=== PATIENT | male | born 1935 | race Caucasian/White ===

== ENCOUNTER → 2017-08-31 | Outpatient (CLI) | payer MEDICARE ==
[~2017-08-31] MED LIST: 'CLONIDINE0.1 MG PO; ACETAMINOPHEN-H1 TA2 PO; AMLODIPINE BESY1 TAB PO; AMPICILLIN500 MG PO; APRESOLINE25 MG PO; ASPIR LOW81 MG PO; AUGMENTIN 875875 MG PO; BACTRIM DS 8001 TA1 PO; BAYER ASPIRIN C81 MG PO; CLINDAMYCIN150 MG PO; COREG25 MG PO; Carafate1 GM PO; DAILY VITE1 TA2 PO; DIABETA5 MG PO; DIPHENHYDRAMINE25 M2 PO; DOXYCYCLINE MO100 MG PO; DULE1ARO INH; FEOSOL325 MG PO; FEROSUL325 MG PO; GLUCOPHAGE500 M1 PO; GLUCOPHAGE850 M1 PO; GLUCOTROL10 MG PO; HYDR25T PO; LEVAQUIN750 M1 PO; LEVOTHYROXINE0.05 MG PO; LEVOTHYROXINE112 MCG PO; LISINOPRIL5 MG PO; LOTENSIN20 MG PO; METFORMIN1000 MG PO; METFORMIN850 MG PO; METOPROLOL SR50 MG PO; METOPROLOL TART50 M1 PO; MULTIVITAMINS1 EACH PO; NASONEX0.05 MG/AC NAS; NORVASC10 MG PO; PRAVACHOL40 MG PO; PRAVASTATIN SOD40 MG PO; PREDNISONE10 MG PO; PRILOSEC20 M1 PO; PROTONIX40 M1 PO; TOPROL XL100 MG PO; VITAMIN D-32000 UNIT PO; VITAMIN D32000 IU PO; Zofran4 MG PO
== END | disposition home or self-care (01) ==
LOC: CARD 15:00
DX: I08.0 Rheumatic disorders of both mitral and aortic valves (principal); I50.22 Chronic systolic (congestive) heart failure

== ENCOUNTER 2017-12-28 19:05 | Emergency (ER) | payer OTHER ==
[~2017-12-28] VITALS: Wt 95.3 kg
[2017-12-28 20:44] LABS: BASO % 0.4 % (0.0-1.0); EOS # 0.1 10*3/uL (0.0-0.4); HEMATOCRIT 42.4 % (42.0-52.0); HEMOGLOBIN 14.3 g/dl (14.0-18.0); LYMPH # 1.6 10*3/uL (1.3-4.4); LYMPH % 22.5 % (27.0-41.0); MEAN CELL VOLUME 87.6 fl (80.0-94.0); MEAN CORPUSCULAR HGB 29.5 pg (27.0-31.0); MEAN CORPUSCULAR HGB CONC 33.7 g/dl (33.0-37.0); MEAN PLATELET VOLUME 9.6 fl (9.6-12.3); MONO # 0.6 10*3/uL (0.1-1.0); MONO % 8.7 % (3.0-9.0); NEUT # 4.6 10*3/uL (2.3-7.9); PLATELET COUNT AUTOMATED 184 10*3/uL (130-400); RED BLOOD COUNT 4.84 10*6/uL (4.50-5.90); RED CELL DISTRI WIDTH 14.4 % (0-14.5)
[2017-12-28 20:58] LABS: ALBUMIN 3.4 gm/dl (3.1-4.5); CREATININE 1.94 mg/dL (0.70-1.30); POTASSIUM 3.7 mmol/L (3.5-5.1); TOTAL PROTEIN 6.8 gm/dL (6.4-8.2)
[2017-12-28] MEDS ORDERED: AUGMENTIN 875875 MG PO (20:59)
[2018-02-01] MEDS ORDERED: LOPRESSOR25 MG PO (10:20)
[2018-02-01] MEDS ORDERED: FUROSEMIDE40 MG PO (10:21)
[2018-02-01] MEDS ORDERED: SYMB160 INH (10:22)
[2018-02-01] MEDS ORDERED: K-TAB10 MEQ PO (10:22)
[2018-02-01] MEDS ORDERED: LEXAPRO5 M1 PO (10:23)
[2018-02-01] MEDS ORDERED: LORATADINE10 M3 PO (10:24)
== END 2017-12-28 21:40 | disposition home or self-care (01) ==
LOC: ED 19:05
PROVIDERS: Nurse Practitioner
DX: L03.031 Cellulitis of right toe (principal); Z87.891 Personal history of nicotine dependence; Z79.899 Other long term (current) drug therapy; Z79.82 Long term (current) use of aspirin; Z88.8 Allergy status to other drugs, medicaments and biological substances

== ENCOUNTER 2018-04-25 20:41 | Inpatient (IN) | payer OTHER ==
[~2018-04-25] VITALS: Ht 193 cm; Wt 99.4 kg
--- NOTE | ~2018-04-25 | PR ---
[place], [place] PROGRESS NOTE NAME: DARRIN CUELLAR [facility] #: [id number] UNIT #: [id number] ROOM: 506 DOCTOR: LEDA JAEGER MD,JOSE J BIRTHDATE: [birth year] DOS: 04/28/2018 SUBJECTIVE: The patient was showing continued improvement and the respiratory symptom, reduction in symptoms of shortness breath. Cough has been noted intermittently small amounts with more sputum expectoration reported in the last 24 hours as per patient. Denies symptoms of chest pain, fever or chills. OBJECTIVE: VITAL SIGNS: Normal temperature, respiratory rate 16, heart rate 85, blood pressure 149/82, pulse oxygen saturation recorded on room air 93% saturation at rest. HEENT: No acute change. NECK: Supple. CARDIOVASCULAR: S1, S2 is audible. LUNGS: Decreased breath sounds are noted in the lower portion of the lungs with occasional crackles. ABDOMEN: Soft and nontender. Bowel sounds present. EXTREMITIES: Without acute edema. LABORATORY DATA: Chest x-ray that was done this morning was noted with continued improvement in the pleural fluid with basilar area of atelectasis, infiltration was still noted. IMPRESSION: The patient currently noted with resolving acute pneumonia and acute congestive heart failure. Bilateral pleural fluid was also noted. The atelectasis noted somewhat increased in the left lower lobe ____ has been improving. PLAN OF MANAGEMENT: Continue antibiotics, bronchodilators, and oxygen supplementation. Care for diuresis and monitor kidney functions. Supportive care therapy, plan of management, care plan and other treatment. JOSE J TOMPKINS MD CM:PNTRANS [phone] JOSE J JAEGER MD 04/28/18 1550 interface
--- NOTE | ~2018-04-25 | PR ---
[place], [place] PROGRESS NOTE NAME: DARRIN CUELLAR [facility] #: [id number] UNIT #: [id number] ROOM: 506 DOCTOR: JOSE J GUERRERO MD BIRTHDATE: [birth year] DOS: 05/03/2018 PULMONARY ADDENDUM NOTE SUBJECTIVE: The patient had been seen and examined in [id number] encounter, history was confirmed. Physical exam performed. Labs reviewed. Assessment: The patient today normal, personally completed the medical record. The note done by the clinical medical assistant was approved. The patient has been noted comfortable as bronchoscopy done yesterday with reduction in symptoms of cough. There were no symptoms of chest pain or acute shortness of breath noted. He has been eating his breakfast this morning of assessment. PHYSICAL EXAMINATION: VITAL SIGNS: Noted normal temperature, respiration 18, heart rate 77, blood pressure 142/78. The pulse oxygen saturation on 2 liters nasal cannula 94% saturation. HEENT: Examination of head was atraumatic. Eyes nonicterus. NECK: Supple. CARDIOVASCULAR: S1, S2 is audible. LUNGS: The patient was noted without any wheezing or crackles this morning. ABDOMEN: Soft, nontender. Bowel sounds present. EXTREMITIES: Without any acute edema. LABORATORY DATA: Chest x-ray that was done this morning shows a small area of atelectasis noted improvement in the aeration of the patient compared to previous chest x-ray 3 days ago. Small bilateral pleural fluid noted, unchanged. The preliminary culture of the bronchial washing noted normal ibis. IMPRESSION: Resolving acute pneumonia, improving atelectasis for the patient, bilateral pleural fluid, acute kidney injury of the patient and other medical problems. PLAN OF TREATMENT: The patient could be discharged from the pulmonary standpoint whenever desired. Outpatient followup treatment, oral diuretics might be needed for the patient to improve his pleural effusions. [place], [place] PROGRESS NOTE NAME: DARRIN CUELLAR [facility] #: [id number] UNIT #: [id number] ROOM: 506 DOCTOR: JOSE J GUERRERO MD BIRTHDATE: [birth year] JOSE J TOMPKINS MD CM:PNTRANS [id number] JOSE J JAEGER MD 05/03/18 0006 interface
--- NOTE | ~2018-04-25 | EKG ---
[place], [place] ELECTROCARDIOGRAM REPORT NAME: DARRIN CUELLAR UNIT #: [id number] ROOM: 506 DOCTOR: CHRIS DRAFT REPORT BIRTHDATE: [birth year] [facility] Test Date: 2018-04-25 Test Time: 21:56:24 Pat Name: DARRIN CUELLAR Department: ER Room: 506 Gender: M [employer] Worker: Veronica Hunt : 1935 Requested By: TERE CAT Order Number: [id number] Reading MD: Mannie Marin MD Measurements Intervals [place] Rate: 97 P: 48 MO: 216 QRS: -32 QRSD: 99 T: 50 QT: 365 QTc: 464 Interpretive Statements Sinus rhythm Prolonged MO interval Left axis deviation Probable anterior infarct, age indeterminate Lateral leads are also involved Compared to ECG 04/19/2018 15:24:51 First degree AV block now present Left-axis deviation now present Left anterior fascicular block no longer present ST (T wave) deviation no longer present Myocardial infarct finding still present Electronically Signed On 04-26-2018 16:11:15 PST by Mannie Marin MD CM:EKGRPT:ELECTROCARDIOGRAM REPORT 1611 TERE MORALES DRAFT REPORT TERE CAT DO
--- NOTE | ~2018-04-25 | PR ---
[place], [place] PROGRESS NOTE NAME: [facility]: [id number] UNIT #: [id number] ROOM: 506 DOCTOR: JOSE J GUERRERO MD BIRTHDATE: [birth year] DOS: 04/30/2018 PULMONARY PROGRESS NOTE SUBJECTIVE: The patient stated he was noted significant shortness of breath last night as the patient went from the bed to the bathroom. The shortness of breath improved after resting for several minutes and use of oxygen. He denies symptoms of chest pain. He has been noted mild cough, but there was no sputum expectoration. Currently, stating that shortness breaths are noted better from yesterday. OBJECTIVE: VITAL SIGNS: Normal temperature, respiratory rate is 22, heart rate is 88, blood pressure is 150/78, and pulse oxygen saturation on 3 liters nasal cannula is 95% saturation. HEENT: On examination, head was atraumatic. Eyes, nonicterus. NECK: Supple. CARDIOVASCULAR SYSTEM: S1, S2 is audible. LUNGS: Generally decreased breath sounds in the lungs noted bilaterally. ABDOMEN: Soft, nontender. EXTREMITIES: No acute edema. LABORATORY DATA: CBC today, normal WBC count and hemoglobin is 12.3. The BMP of the patient this morning, BUN is 37 and creatinine is 1.87. IMPRESSION: The patient with resolving acute kidney gradually with improving overall respiratory status, shortness of breath reported yesterday, and basilar area of atelectasis and/or infiltration. PLAN OF TREATMENT: Obtain a chest x-ray today. If the findings of atelectasis/infiltration still remains persistent; certainly, the patient might be considered for therapeutic bronchoscopy for clearing up any mucous impaction of major airways resulting in persistent atelectasis. In the meantime, continue other supportive therapy, plan of management, and care plan. Monitor kidney functions. Usual care, other therapy, plan of management, and care plan as previously. [place], [place] PROGRESS NOTE NAME: DARRIN CUELLAR UNIT #: [id number] ROOM: 506 DOCTOR: JOSE J GUERRERO MD BIRTHDATE: [birth year] JOSE J TOMPKINS MD CM:PNTRANS [phone] JOSE J JAEGER MD 05/01/18123 interface
--- NOTE | ~2018-04-25 | PR ---
[place], [place] PROGRESS NOTE NAME: DARRIN CUELLAR [facility] #: [id number] UNIT #: [id number] ROOM: 506 DOCTOR: OLESYA CABRERA,ALAN BIRTHDATE: [birth year] DOS: CARDIOLOGY FOLLOWUP VISIT NOTE The patient ____ 506 bed 1. REASON FOR VISIT: Congestive heart failure and coronary artery disease and recent PA. HISTORY OF PRESENT ILLNESS: The patient is feeling better. Denies any chest pain, no palpitation, no dizziness. Occasional sharp chest pains, but no PND, no orthopnea, no fever and chills. No nausea, vomiting, diarrhea. REVIEW OF SYSTEMS: Review of the 8 systems negative except as mentioned above. RHYTHM STRIPS: The patient in sinus rhythm. PHYSICAL EXAMINATION: VITAL SIGNS: Blood pressure 132/68, pulse 79, respiration is 18, weight 95.9 kilos. GENERAL: Alert, comfortable, in no acute distress. HEAD AND NECK: Neck supple, no distended neck veins, no carotid bruit. CHEST: Symmetrical, nontender. LUNGS: A few scattered rhonchi. Good air entry bilaterally. HEART: Regular rhythm, no S3. Grade 1/6 systolic murmur. ABDOMEN: Benign, nontender. Bowel sounds normal. EXTREMITIES: Showed trace edema. Distal pulses palpable. SKIN: Warm and dry. No cyanosis, no clubbing. RECTAL: Deferred. GENITOURINARY: Deferred. MEDICATIONS AND LABORATORIES: Reviewed. IMPRESSION: 1. Chest pain, atypical. 2. Recent myocardial infarction, cardiac catheterization was done at [place] [facility] and medical therapy recommended. 3. Ischemic cardiomyopathy, ejection fraction of 40-45% by echo. 4. Hypertension. 5. Pneumonia. 6. Chronic kidney disease. RECOMMENDATIONS: 1. Continue cardiac medications include beta mike, nitrates, aspirin and statin. He was on hydralazine and nitrates for his cardiomyopathy. No NIECY or ARBs due to his chronic kidney disease. 2. His labs today showed creatinine 2.05 and hemoglobin 9.7. Chest x-ray showed COPD, cardiomegaly with bronchopneumonia with increased findings at the left base. 3. No further cardiac testing. [place], [place] PROGRESS NOTE NAME: DARRIN CUELLAR [facility] #: [id number] UNIT #: [id number] ROOM: 506 DOCTOR: OLESYA CABRERA,ALAN BIRTHDATE: [birth year] 4. Antibiotic treatment per his primary care physician. 5. Home in the next 1-2 days when he improves from the pneumonia. 6. He will follow up with ____ or Dr. Marin at [facility]. There is no family at bedside at the time of examination. ALAN DACOSTA MD CM:PNTRANS [id number] ALAN DACOSTA MD 04/29/18 1049 interface
--- NOTE | ~2018-04-25 | PROC NOTE ---
[place], [place] PROCEDURE NOTE NAME: DARRIN CUELLAR [facility] #: [id number] UNIT #: [id number] ROOM: 506 DOCTOR: LEDA JAEGER MD,JOSE J BIRTHDATE: [birth year] DOS: 05/02/2018 BRONCHOSCOPY PREOPERATIVE DIAGNOSES: The patient with persistent infiltration of the left lower lobe, rule out pneumonia versus atelectasis or other etiology. POSTOPERATIVE DIAGNOSES: There was no evidence of pleural effusion noted in the left lower lobe of the endobronchial tree, mucus impaction noted, which were cleared of normal saline wash with minimal purulence. There were no endobronchial obstructive lesions. COMPLICATIONS: None. PROCEDURE DESCRIPTION: Informed consent obtained. The patient brought to the OR and placed in supine position. Conscious sedation administered by Anesthesia Department in the supine position. Bronchoscope was introduced into the airway into laryngeal area. Epiglottis and vocal cords were seen. Vocal cord was noted yellowish in color moving symmetrically with movements. Bronchoscope advanced to vocal cord into the tracheal lumen. Tracheal lumen noted with small amount of secretion and suctioned out. Shirley noted sharp. Right upper, right middle, right lower, left upper, lingular lower bronchi were all examined. Small amount of impaction of the mucus noted in the left lower endobronchial tree, cleared with normal saline wash. There were no endobronchial obstructive lesions. All the bronchial washing sent for culture. Procedure was tolerated by the patient. Postoperative findings were discussed with the patient's spouse in the recovery room. No changes at this time in treatment will be necessary. However, new chest x-ray is ordered to be done tomorrow morning to assess the improvement aeration of the lung. Culture will be monitored. Potential discharge tomorrow morning or day after depends on the preliminary culture results of the bronchial washings. JOSE J TOMPKINS MD CM:PROCNOTE:PROCEDURE NOTE [id number] JOSE J JAEGER MD
--- NOTE | ~2018-04-25 | PR ---
[place], [place] PROGRESS NOTE NAME: DARRIN CUELLAR UNIT #: [id number] ROOM: 506 DOCTOR: JOSE J GUERRERO MD BIRTHDATE: [birth year] DOS: 05/02/2018 PULMONARY PROGRESS NOTE SUBJECTIVE: The patient was noted comfortable at this time. At this time, still noted cough which remains nonproductive as previously. Denies acute shortness of breath. There were no symptoms of chest pain reported. Shortness of breath occurs with exertion. There were no symptoms of hemoptysis, fever or chills. Denies symptoms of nausea, vomiting, diarrhea, abdominal pain, hematemesis, melena, or hematochezia. The patient is currently noted n.p.o. past midnight for bronchoscopy. Remaining systems were reviewed. They were noted all negative. OBJECTIVE: VITAL SIGNS: For the patient, which have recorded shows normal temperature, respiratory rate of 18, heart rate 74, blood pressure 132/70-139/73, pulse oxygen saturation recorded on 3 liters nasal cannula 94% saturation this morning. HEENT: No acute change. NECK: Supple. CARDIOVASCULAR: S1, S2 audible. LUNGS: Noted with decreased breath sounds in the lower portion with occasional crackles, but no wheezing. ABDOMEN: Soft, nontender. Bowel sounds present. EXTREMITIES: Without acute edema. MUSCULOSKELETAL: Without acute deformities. CENTRAL NERVOUS SYSTEM: Cranial nerves 2-12 intact. LABORATORY DATA: Culture of the sputum spontaneous from 04/30/2018, no bacterial growth. CBC, WBC count normal, hemoglobin 12.5, platelet count normal. CMP this morning, BUN 41, creatinine 2.20. IMPRESSION: Basilar area of atelectasis without any resolution noted for past several days appropriate medical management of acute pneumonia or improvement of respiratory status, otherwise noted for bronchoscopy. PLAN OF MANAGEMENT: Continuation of current therapy, plan of management, proceed with bronchoscopy as planned. Any changes modification in treatment if necessary after bronchoscopy ordered accordingly. Other therapy, plan of management, care plan and treatment and usual care. Supportive care, other treatment and therapies. [place], [place] PROGRESS NOTE NAME: DARRIN CUELLAR UNIT #: [id number] ROOM: 506 DOCTOR: JOSE J GUERRERO MD BIRTHDATE: [birth year] JOSE J TOMPKINS MD CM:PNTRANS 1237 JOSE J JAEGER MD 05/03/18 0038 interface
--- NOTE | ~2018-04-25 | PR ---
[place], [place] PROGRESS NOTE NAME: DARRIN CUELLAR [facility] #: [id number] UNIT #: [id number] ROOM: 506 DOCTOR: LEDA JAEGER MD,JOSE J BIRTHDATE: [birth year] DOS: 05/01/2018 PULMONARY PROGRESS NOTE SUBJECTIVE: The patient is noted comfortable at this time, resting on the bed this morning. He stated that he has developed significant cough, expectorated some sputum in the last night. Shortness of breath is still noted with exertion with walking from bed to the bathroom. Denies symptoms of fever or chills. Denies symptoms of hemoptysis. Denies symptoms of nausea, vomiting, diarrhea, abdominal pain, hematemesis, melena, hematochezia, general edema or pain of the lower extremities. Remaining systems were reviewed, they were noted all negative. OBJECTIVE: VITAL SIGNS: Reviewed, show temperature normal, respiratory rate recorded as 18-20, heart rate of 83, blood pressure 155/77. Pulse oxygen saturation on 3 liters nasal cannula maintained at 94% saturation. HEENT: Examination shows head was atraumatic. Eyes nonicterus. NECK: Supple. CARDIOVASCULAR: S1, S2 audible. LUNGS: Noted with ____ wheezing or crackles noted in the lungs. ABDOMEN: Soft, nontender. Bowel sounds present. EXTREMITIES: Without any acute edema. VISIBLE SKIN: No lesions or rashes. CENTRAL NERVOUS SYSTEM: Cranial nerves 2 through 12 intact. MUSCULOSKELETAL: Without any acute deformities. RADIOLOGY: Chest x-ray is done yesterday that has been ordered to assess the improvement in area of atelectasis and infiltration in the left lower lobe which remained persistent without any changes. As compared with the last chest x-ray, small bilateral pleural fluid still remains persistent. IMPRESSION: The patient with persistent area of atelectasis and/or pneumonia in the left lower lobe, currently treated for congestive heart failure and pneumonia. Repeat culture of the sputum was also ordered that was done yesterday showing moderate white blood cells, epithelial cells, many Gram-positive cocci in pairs, chains and clusters with preliminary normal ibis. Cultures will be monitored. PLAN OF THERAPY: The patient will benefit from fiberoptic bronchoscopy that will be done tomorrow morning. Risks and benefits of the procedure have been explained. The patient is agreeable. I would not suggest making any changes in antibiotic at this time since the patient is not showing any obvious signs of sepsis requiring change in antibiotics. Monitor cultures of sputum as well. Other supportive therapy, plan of management, care plan. Cardiology workup remains in progress. The patient was also planned for stress testing to be done tomorrow. [place], [place] PROGRESS NOTE NAME: DARRIN CUELLAR UNIT #: [id number] ROOM: 506 DOCTOR: JOSE J GUERRERO MD BIRTHDATE: [birth year] JOSE J TOMPKINS MD CM:PNTRANS [phone] JOSE J JAEGER MD 05/01/18 1532 interface
--- NOTE | ~2018-04-25 | EKG ---
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1935 Requested By: STEFANY MATTHEWS Order Number: [id number] Reading MD: Mannie Marin MD Measurements Intervals [place] Rate: 78 P: 51 OR: 214 QRS: -42 QRSD: 105 T: 74 QT: 470 QTc: 536 Interpretive Statements Sinus rhythm Supraventricular bigeminy Borderline prolonged OR interval Left anterior fascicular block Anterolateral infarct, age indeterminate Prolonged QT interval Compared to ECG 04/19/2018 15:24:51 Atrial premature complex(es) now present Prolonged QT interval now present ST (T wave) deviation no longer present Myocardial infarct finding still present Electronically Signed On 04-26-2018 16:16:14 PST by Mannie Marin MD CM:EKGRPT:ELECTROCARDIOGRAM REPORT [id number] STEFANY MORALES DRAFT REPORT STEFANY MATTHEWS DO
--- NOTE | ~2018-04-25 | PR ---
[place], [place] PROGRESS NOTE NAME: DARRIN CUELLAR [facility] #: [id number] UNIT #: [id number] ROOM: 506 DOCTOR: ALAN DACOSTA MD BIRTHDATE: [birth year] DOS: 05/01/2018 REASON FOR VISIT: CHF and CAD. HISTORY OF PRESENT ILLNESS: The patient is still somewhat short of breath, but denies any chest pain or palpitation. No dizziness, no edema, no orthopnea. He is anticipating to go for a bronchoscopy tomorrow. A chest x-ray showed mild pleural effusions. No PND, no orthopnea, no fever and chills, no cough, no hemoptysis. REVIEW OF SYSTEMS: Review of the 10 systems negative except as mentioned above. RHYTHM STRIPS: The patient was in sinus rhythm. PHYSICAL EXAMINATION: VITAL SIGNS: Blood pressure 135/75, respiratory rate 18, pulse 76. GENERAL: Alert, comfortable, in no acute distress. HEAD AND NECK: Pupils are unequal and no jaundice. Tongue was moist and pharynx clear. Neck supple. The patient has elevated neck veins. CHEST: Symmetric, nontender. LUNGS: A few scattered rhonchi, diminished at bases. HEART: Regular rhythm, grade 2/6 systolic murmur. ABDOMEN: Nontender. Bowel sounds normal. EXTREMITIES: Showed 1+ edema. Distal pulses palpable. SKIN: Warm and dry. No cyanosis, no clubbing. RECTAL: Deferred. GENITOURINARY: Deferred. NEUROLOGIC: Alert, oriented. No focal neurologic deficit. MEDICATIONS AND LABS: Reviewed. Creatinine is 2.0, hemoglobin 12.6. The chest x-ray showed cardiomegaly, emphysema and also bilateral pleural effusions which are slightly increased from previous x-ray. There is also left lower lobe consolidation. IMPRESSION: 1. Acute on chronic systolic heart failure, ejection fraction is 40-45% by echo on 04/26/2018 2. Intermittent chest pains, currently stable. 3. Recent ST elevation myocardial infarction and cardiac cath showed 100% occluded diagonal 1 and 90% posterior descending artery, medical therapy recommended. 4. Moderate pulmonary hypertension with right ventricular systolic pressures of 52 mmHg. 5. Pneumonia and possible sepsis. 6. Hypertension. 7. Chronic kidney disease. RECOMMENDATIONS: 1. I will start Lasix and give him another 20 mg IV today and start him on [place], [place] PROGRESS NOTE [facility]: [id number] #: [id number] ROOM: 506 DOCTOR: OLESYA CABRERA,ALAN BIRTHDATE: [birth year] mg p.o. once daily from tomorrow and monitor his blood pressure and renal function. 2. Possible bronchoscopy tomorrow. 3. Continue rest of the cardiac medications including metoprolol, hydralazine, isosorbide, Lipitor, and aspirin. 4. No family at bedside at the time of my examination. ALAN DACOSTA MD CM:GREGORIO [phone] ALAN DACOSTA MD 05/01/182133 interface
--- NOTE | ~2018-04-25 | CON ---
[place], [place] REPORT OF CONSULTATION NAME: DARRIN CUELLAR [facility] #: [id number] UNIT #: [id number] ROOM: 506 DOCTOR: SAM CASTRO DO BIRTHDATE: [birth year] DOS: 04/26/2018 PULMONOLOGY CONSULTATION REQUEST The service we are being consulted for is the hospitalist service. REASON FOR CONSULTATION: Multifocal pneumonia and spiculated mass on CT. HISTORY OF PRESENT ILLNESS: The patient is an 82-year-old male who presented to the hospital with chest pain that began earlier in the day after eating a meal. The patient reports that he was recently seen in the Emergency Department about a week ago on 04/19/2018 and was found to have a STEMI for which he was sent to [facility] ____ in [place] for cardiac catheterization. At that time, he was found to have 30% in 1 vessel and 100% blockage in another vessel. The patient did not receive any stents at that time, but was placed on aspirin daily. The patient was concerned because he was experiencing chest pain that was similar to the chest pain that he had experienced a week ago. The patient does admit to shortness of breath and cough that is productive. He admits to chills, but denies any fever. In the ER, the patient was evaluated and found to have multifocal pneumonia and then was admitted to the ICU for further care. PAST MEDICAL PROBLEMS: Abdominal aortic aneurysm, adenocarcinoma of duodenum status-post surgical excision, anxiety, coronary artery disease, chronic kidney disease, COPD, diastolic congestive heart failure, diabetes type 2, emphysema, hypertension, GERD, hiatal hernia, hyperlipidemia, vitamin D deficiency. PAST SURGICAL PROBLEMS: History of cataract removal, history of EGD, history of AAA repair, history of cardiac catheterization, and history of duodenal cancer removal. SOCIAL HISTORY: The patient denies alcohol or illicit drug use, but does report a past history of tobacco abuse. The patient reports that he smoked up to 3 packs per day for the past 50 years, but quit around 16 years ago. FAMILY HISTORY: Father from coronary artery disease. Mother from natural causes at age 98. ALLERGIES: LORAZEPAM, ZOLPIDEM, AND OLIVER PEPPERS. CURRENT MEDICATIONS: Aspirin 81 mg daily, atorvastatin 40 mg daily, Symbicort 160/4.5 mcg 2 puffs daily, vitamin D 2000 units daily, glipizide 10 mg daily, hydralazine 25 mg q. 12 hours, Vistaril 25 mg p.r.n. anxiety, isosorbide 30 mg twice a day, levothyroxine 200 mcg daily, loratadine 10 mg daily, metoprolol 50 mg daily, and multivitamin once daily. REVIEW OF SYSTEMS: GENERAL: The patient reports chills. Denies any fevers, weight loss, or weight gain. HEENT: Denies any vision changes, lesions, or difficulty swallowing. CARDIOVASCULAR: Reports chest pain. Denies palpitations or diaphoresis. [place], [place] REPORT OF CONSULTATION NAME: DARRIN CUELLAR UNIT #: [id number] ROOM: 506 DOCTOR: SAM CASTRO DO BIRTHDATE: [birth year] RESPIRATORY: Reports shortness of breath, cough productive of sputum, dyspnea on exertion, but denies any hemoptysis or wheezing. GASTROINTESTINAL: Denies abdominal pain, nausea, vomiting, diarrhea, or constipation. GENITOURINARY: Denies any dysuria, hematuria, or changes in frequency or urgency. NEUROLOGICAL: Denies any dizziness, lightheadedness, or confusion. PSYCHIATRIC: Denies depression, anxiety, or substance abuse. ENDOCRINE: Denies any heat or cold intolerance. EXTREMITIES: Denies any new rashes, lesions, or ulcers. PHYSICAL EXAMINATION: VITAL SIGNS: Temperature of 97.5, pulse of 82, respiratory rate 18, blood pressure 154/85, and pulse ox 93% on 3 L nasal cannula. GENERAL: The patient is alert and oriented x 3. No signs of acute distress. HEAD: Normocephalic, atraumatic. EYES: PERRLA. No lesions, no icterus. NECK: Without lesions or masses. Supple. HEART: Regular rate and rhythm. No murmurs, rubs, or gallops. LUNGS: No respiratory distress, but rales and rhonchi are present bilaterally. No wheezing present. ABDOMEN: Soft, nontender. Bowel sounds present. EXTREMITIES: Trace edema. No clubbing, cyanosis, or erythema. NEUROLOGIC: Grossly intact without focal neurological deficits. PSYCHIATRIC: Normal mood, normal affect. SKIN: Warm and dry, no rashes, ulcerations, or lesions. LABORATORY DATA: CBC showed white blood cell count of 8.3, hemoglobin of 13.1, hematocrit of 39.3, and platelet count of 226. Coagulation profile within normal limits. CMP showed chronic kidney disease with creatinine of 1.83 and BUN of 32. The rest of electrolytes within normal limits. Troponin elevated at 1.150. Chest x-ray in the ER showed possible developing bibasilar infiltrates. Chest CT showed emphysema with diffuse bronchial wall thickening and mucus plugging. Bibasilar airspace opacity is suspicious for multifocal pneumonia; enlarged mediastinal lymph nodes which may possibly be due to the infection. The CT also showed a new area of solid airspace nodularity with spiculated margins measuring 2 x 2 cm in the superior right lower lobe, which is associated with bronchiectasis. The CT also showed a mid-descending thoracic aorta, mildly dilated at 4.2 cm. ASSESSMENT: 1. Sepsis. 2. Hospital acquired pneumonia. 3. Chest pain. 4. Elevated troponin. 5. Acute respiratory failure with hypoxia. [place], [place] REPORT OF CONSULTATION NAME: POLODARRIN R UNIT #: [id number] ROOM: [facility] DOCTOR: SAM CASTRO DO BIRTHDATE: [birth year] 6. Right lower lobe pulmonary nodule. 7. Mediastinal lymphadenopathy. 8. Chronic kidney disease. 9. Chronic obstructive pulmonary disease. 10. Diastolic congestive heart failure. 11. Coronary artery disease. TREATMENT PLAN: The patient was initially admitted to the ICU and has had troponin cycled and Cardiology is following for the elevated troponin levels. The patient is currently on vancomycin, Zosyn, and Levaquin for coverage of HCAP, these antibiotics can be continued for now and will be deescalated based on pending sputum cultures and blood cultures. The patient was also found to have some mild pleural effusions and further IV hydration can be avoided at this time. No current need for any IV diuretics. Continue bronchodilators and Mucinex. Based on CT findings, the patient will have to be monitored with a followup CT to evaluate the nodularity which could be due to current infection, but must be ruled out at a later date with repeat followup CT. Sam Castro DO JOSE J TOMPKINS MD CM:CONSTR:REPORT OF CONSULTATION 1051 04/27/18 1350 interface
--- NOTE | ~2018-04-25 | PR ---
[place], [place] PROGRESS NOTE NAME: DARRIN CUELLAR [facility] #: [id number] UNIT #: [id number] ROOM: 506 DOCTOR: UMESH VILLEDA BIRTHDATE: [birth year] DOS: 04/27/2018 SUBJECTIVE: The patient appears to be comfortable at rest with decreased coughing. The patient notes that he has improved breathing, decreased fever and decreased shortness of breath. The patient denies headache, nausea, vomiting and overall has improved since yesterday. OBJECTIVE: VITAL SIGNS: Normal temperature, respiratory rate 18, pulse 81, blood pressure 138/72, pulse oxygen saturation on 3 liters nasal cannula 96% saturation. HEENT: Head was atraumatic. Eyes: Nonicterus. NECK: Supple. CARDIOVASCULAR: S1, S2 audible. LUNGS: The patient was noted with decreased breath and lungs bilaterally, no appreciable crackles except a little on the bases. No wheezing. ABDOMEN: Soft, nontender. Bowel sounds present. EXTREMITIES: The patient without any edema. SKIN: Variable skin lesions or rashes. MUSCULOSKELETAL: No acute deformities. CENTRAL NERVOUS SYSTEM: Cranial nerves 2-12 intact. LABORATORY DATA: CBC on 04/27/2018, white blood cell count 10.4, hemoglobin 12.6, platelet count 266. CMP done on 04/27/2018, BUN 45; creatinine 2.19, elevated from yesterday creatinine was 1.83; glucose 197; CO2 of 21. Troponin 0.848 decreased from yesterday's 0.889, overall stable. ASSESSMENT: 1. The patient presents to the hospital with acute hypoxic respiratory failure with possible superimposed acute pneumonia, congestive heart failure, considered in the differential diagnosis of bilateral pleural fluid. 2. Rule out lung malignancy versus localized infection of the right upper lobe superior subsegment. 3. Past history of nicotine abuse as well. 4. Abnormal troponin. Cardiology following. 5. Recent ST segment elevation myocardial infarction, cardiac catheterization from the 13th of this month, but did not require any acute coronary intervention after cardiac catheterization. PLAN OF MANAGEMENT: The patient to continue current antibiotic treatment and bronchodilators. Current antibiotic management can be deescalated once cultures return and if negative. UMESH VILLEDA DO [place], [place] PROGRESS NOTE NAME: [facility]AR [id number] UNIT #: [id number] ROOM: 506 DOCTOR: UMESH VILLEDA BIRTHDATE: [birth year] JOSE J TOMPKINS MD CM:GREGORIO [id number] UMESH VILLEDA 04/28/18 0020 interface
--- NOTE | ~2018-04-25 | EKG ---
[place], [place] ELECTROCARDIOGRAM REPORT NAME: DARRIN CUELLAR UNIT #: [id number] ROOM: 506 DOCTOR: CHRIS DRAFT REPORT BIRTHDATE: [birth year] [facility] Test Date: 2018-04-26 Test Time: 00:54:23 Pat Name: DARRIN CUELLAR Department: Room: 506 Gender: M Data Support Specialist: DRU : 1935 Requested By: STEFANY MATTHEWS Order Number: [id number] Reading MD: Mannie Marin MD Measurements Intervals [place] Rate: 87 P: 46 MA: 220 QRS: -37 QRSD: 101 T: 75 QT: 396 QTc: 477 Interpretive Statements Sinus rhythm Borderline prolonged MA interval Left axis deviation Anteroseptal infarct, age indeterminate Compared to ECG 04/19/2018 15:24:51 Left-axis deviation now present Left anterior fascicular block no longer present ST (T wave) deviation no longer present Myocardial infarct finding still present Electronically Signed On 04-26-2018 16:12:33 PST by Mannie Marin MD CM:EKGRPT:ELECTROCARDIOGRAM REPORT 0054 1612 STEFANY MORALES DRAFT REPORT STEFANY MATTHEWS DO
--- NOTE | ~2018-04-25 | EKG ---
[place], [place] ELECTROCARDIOGRAM REPORT NAME: DARRIN CUELLAR UNIT #: [id number] ROOM: 506 DOCTOR: CHRIS DRAFT REPORT BIRTHDATE: [birth year] [facility] Test Date: 2018-05-03 Test Time: 00:54:49 Pat Name: DARRIN CUELLAR Department: Room: 506 1 Gender: M Wrapper Stitcher: DOLLY : 1935 Requested By: JOHNNY MUNGUIA Order Number: [id number] Reading MD: Conrad Hunt MD Measurements Intervals [place] Rate: 81 P: 17 NC: 210 QRS: -36 QRSD: 103 T: 147 QT: 453 QTc: 526 Interpretive Statements Sinus rhythm Left axis deviation Anteroseptal infarct, age indeterminate Lateral leads are also involved Prolonged QT interval Compared to ECG 04/26/2018 03:45:24 Left-axis deviation now present Atrial premature complex(es) no longer present Left anterior fascicular block no longer present Myocardial infarct finding still present Electronically Signed On 05-03-2018 11:11:03 PST by Conrad Hunt MD CM:EKGRPT:ELECTROCARDIOGRAM REPORT 0054 1111 JOHNNY MORALES DRAFT REPORT JOHNNY MUNGUIA DO
--- NOTE | ~2018-04-25 | CON ---
[place], [place] REPORT OF CONSULTATION NAME: DARRIN CUELLAR [facility] #: [id number] UNIT #: [id number] ROOM: 506 DOCTOR: LEDA JAEGER MDJOSE J BIRTHDATE: [birth year] DOS: 04/26/2018 PULMONARY CONSULTATION, EVALUATION AND MANAGEMENT CONSULTATION REQUESTED BY: Hospitalist service. REASON FOR CONSULTATION: Assessment of the pneumonia, pleural fluid and other respiratory problems. HISTORY OF PRESENT ILLNESS: The patient was independently seen and examined in [id number] encounter, history was confirmed. Physical examination performed. Labs were reviewed. The note done by the medical equipment technician was approved as well. All the labs were reviewed. The data from the PACS system was reviewed as well including his past history. The patient presented to the Emergency Room yesterday on 04/25/2018. The patient has been noted with symptoms of getting some indigestion in the abdomen. He was also noted some symptoms of shortness of breath as well. The patient was brought to the hospital in the Emergency Room. He has been denying any symptoms of chest pain. He does have some cough without any sputum expectoration. Denies symptoms of hemoptysis. Denies any symptoms of wheezing. The patient has been recently admitted to the hospital. Incidentally, he has been hospitalized on 04/26/[address] segment elevation myocardial infarction. The patient was transferred to [facility] by the helicopter with cardiac catheterization was noted with multifocal coronary artery disease, but the patient did not require any acute coronary intervention as stated by the patient. REVIEW OF SYSTEMS: For the patient which has already completed by the medical equipment technician and reviewed for the patient is the same. PAST MEDICAL HISTORY: 1. Known with history of coronary artery disease. 2. Chronic kidney disease stage 3. 3. COPD. 4. Descending abdominal aortic aneurysm. 5. Congestive heart failure, diastolic dysfunction. 6. Essential hypertension. 7. Gastroesophageal reflux. 8. History of adenocarcinoma of the duodenum for patient status post surgery reported in remission. 9. Vitamin D deficiency. 10. Hyperlipidemia. PAST SURGICAL HISTORY: 1. Bilateral cataract extraction and lens implantation. 2. EGD. 3. Abdominal aortic aneurysm repair. 4. Cardiac catheterization. 5. Partial resection of duodenum for duodenal cancer. SOCIAL HISTORY: The patient is , has 2 children, lives at home. Smoking [place], [place] REPORT OF CONSULTATION NAME: DARRIN CUELLAR UNIT #: [id number] ROOM: 506 DOCTOR: JOSE J GUERRERO MD BIRTHDATE: [birth year] started the patient at younger age 2 packs of cigarettes per day until 2002. Denies history of alcohol use or illicit drug use. FAMILY HISTORY: Noncontributory. CURRENT MEDICATIONS: administered during this hospitalization, hydralazine, metoprolol succinate, Lovenox, DVT prophylaxis, Lipitor, Imdur, loratadine, multivitamin, aspirin, vitamin D, sliding insulin coverage, Pulmicort Respules, albuterol sulfate, levothyroxine, Protonix, hydroxyzine, antibiotics, Levaquin, vancomycin and Zosyn. DRUG ALLERGY HISTORY: 1. ATIVAN. 2. AMBIEN. PHYSICAL EXAMINATION: GENERAL: An 82-year-old white male, currently noted comfortable without any acute distress this morning of assessment. Height of 6 feet 4 inches, weight of 211 pounds, BMI 25.7 reported. VITAL SIGNS: High temperature 101.3 degree Fahrenheit to normal temperature this morning, respiratory 18-26, heart rate of 84-90, blood pressure 132/80-154/85. Pulse oxygen saturation patient noted on 3 liters nasal canula 92% saturation and 87% on room air was recorded on admission. HEENT: Head was atraumatic. Eyes nonicterus. NECK: Supple. CARDIOVASCULAR: S1, S2 audible. LUNGS: The patient was noted with decreased breaths in the lungs bilaterally. There were no crackles or wheezing. ABDOMEN: Soft, nontender. Bowel sounds present. EXTREMITIES: The patient without any edema. SKIN: Visible skin lesions or rashes. MUSCULOSKELETAL: No acute deformities. CENTRAL NERVOUS SYSTEM: Cranial nerves 2-12 intact. LABORATORY DATA: CBC on 04/25/2018, normal CBC. CMP that was done on 04/25/2018, BUN 33, creatinine 1.91, glucose 153. Sodium 135. Troponin 1.32. Lactic acid for the patient 1.1. ESR was 35. PT, PTT patient this morning still noted normal. CMP of the patient this morning, BUN 32, creatinine 1.83, glucose 205, CO2 of 19. Troponin that. The troponin third set for 1.50. CBC this morning, normal WBC count, hemoglobin 13.1. The PACS data reviewed for the patient for his images of the CAT scan of the chest x-ray. The chest x-ray that was done on 04/19/2018, was reviewed and it shows no acute pulmonary infiltration. Chest x-ray done shows interval development of bilateral pleural fluid and lower lobe infiltration. CT scan of the chest without contrast that was completed yesterday shows small bilateral pleural fluid as well as area of atelectasis, infiltration noted in the left lower lobe small in the right lower lobe as well as pulmonary nodule ____ cm in the right lower lobe superior segment. There was no associated lymphadenopathy noted with the finding mediastinal lymphadenopathy because lack of IV contrast. [place], [place] REPORT OF CONSULTATION NAME: DARRIN CUELLAR UNIT #: [id number] ROOM: [facility] DOCTOR: LEDA JAEGER MD,[facility] BIRTHDATE: [birth year] IMPRESSION: 1. The patient currently presented to the hospital with acute hypoxic respiratory failure, possibility of acute congestive heart failure would be considered in the differential diagnosis of bilateral pleural fluid. 2. Possibly superimposed acute pneumonia to be considered as well with current presentation. 3. Rule out lung malignancy versus localized infection of the right upper lobe superior subsegment. 4. Past history of nicotine abuse as well. 5. Abnormal troponin. 6. Recent ST segment elevation myocardial infarction. Cardiac catheterization from the 13th of this month, but did not require any acute coronary intervention after cardiac catheterization. PLAN OF MANAGEMENT: The patient would be continued with current antibiotic at risk of resistant infection would be likely because of recent hospitalization, the patient's stay more than 48 hours in [facility]. Also assess if there is any previous CT scans done during his recent hospitalization to review and compare the current findings. Bronchodilators for the patient to be continued. Reduction of antibiotic spectrum based on the progression of the illness. Assess the patient's current pneumonia with the urine for Legionella antigen and strep antigen and other testing. Diuretics carefully to be done. The patient noted with acute coronary injury related to the current acute ongoing pulmonary problem. The patient seemed to be better for the patient, white excessive fluid use. The patient to prevent fluid overload. Ultrasound of the chest was performed at the bedside, only small pleural fluid noted with some interstitial edema. Other plan of management changes to be made based on progression of the illness. Thank you for allowing me to participate in the care of this patient. JOSE J TOMPKINS MD CM:CONSTR:REPORT OF CONSULTATION 1348 04/27/18 0221 interface
--- NOTE | ~2018-04-25 | PR ---
[place], [place] PROGRESS NOTE [id number] UNIT #: [id number] ROOM: 506 DOCTOR: LEDA JAEGER MD,JSOE J BIRTHDATE: [birth year] DOS: 04/29/2018 SUBJECTIVE: He has been complaining of shortness of breath last night when he was trying to make up his bed. Shortness of breath has been noted better with rest. Denies any symptoms of fever or chills. No symptoms of nausea or vomiting. Denies symptoms of abdominal pain. The patient does not have any coughing or sputum expectoration. OBJECTIVE: VITAL SIGNS: Normal temperature, respiratory rate 18, heart rate 81, blood pressure 150/73. The pulse oxygen saturation on 2 liters 93% saturation. HEENT: Examination shows head was atraumatic. Eyes nonicterus. NECK: Supple. CARDIOVASCULAR: S1, S2 is audible. LUNGS: The patient was noted with crackles in the lung bases bilaterally, more on the left than the right side. ABDOMEN: Soft, nontender. EXTREMITIES: No acute edema. IMPRESSION: 1. Acute congestive heart failure with area of basilar atelectasis noted in the left side with a chest x-ray yesterday. 2. Acute pneumonia, currently treated with the Levaquin. The Levaquin adjusted to kidney functions. PLAN OF THERAPY: Continue antibiotics, bronchodilators, other treatment, and plan of management previously in progress. Usual care. Supportive care and therapies. JOSE J TOMPKINS MD CM:PNTRANS [id number] JOSE J JAEGER MD 04/29/18 1221 interface
--- NOTE | ~2018-04-25 | PR ---
[place], [place] PROGRESS NOTE NAME: DARRIN CUELLAR [facility] #: [id number] UNIT #: [id number] ROOM: 506 DOCTOR: LEDA JAEGER MD,JOSE J BIRTHDATE: [birth year] DOS: 04/27/2018 SUBJECTIVE: The patient independently seen and examined in [id number] encounter, history was confirmed. Physical examination performed. Labs were reviewed. Assessment and management of the patient for today's visit were personally completed. The patient has been transferred to the medical floor. In Intensive Care Unit the patient has not been noted with any episodes of hypotension. The patient noted significant tachycardia to transfer. Shortness of breath has been noted improved. The patient remains afebrile. Denies symptoms of fever, chills, chest pain or hemoptysis. The patient denies symptoms of abdominal pain, nausea, vomiting or diarrhea. Denies any pain of the lower extremities. Remaining systems were reviewed. They were noted all negative. OBJECTIVE: HEENT: Examination shows head was atraumatic. Eyes nonicterus. NECK: Supple. CARDIOVASCULAR: S1, S2 audible. LUNGS: Noted decreased breath sounds in the lower portion of the lungs. ABDOMEN: Soft, nontender, bowel sounds present. EXTREMITIES: Without any acute edema. MUSCULOSKELETAL: Without acute deformities. CENTRAL NERVOUS SYSTEM: Cranial nerves 2-12 intact. LABORATORY DATA: CBC today: WBC count normal, hemoglobin 12.6, platelet normal. Troponin 0.848. CMP this morning, BUN 45, creatinine 2.19. Echocardiogram completed yesterday on 04/26/2018 was reviewed and is reported as finding of left ventricle, ejection fraction mildly decreased at 40%-45%. IMPRESSION: 1. The patient who has been currently noted with acute congestive heart failure, bilateral pleural fluid with possibility of acute pneumonia. The patient remains afebrile. 2. Mild increase in creatinine noted, most likely related to diuretic. 3. 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 PLAN OF TREATMENT: Discontinuation of the IV Zosyn and vancomycin, discontinued Levaquin. The patient adjusted to kidney functions. Monitor temperature curve. The patient has been noted afebrile again with signs of active infection, worsening certainly antibiotic will be readdressed accordingly. Chest x-ray was ordered to be done in the morning to reassess the pleural fluid and pulmonary infiltration. Continue to maximize the Cardiology services. Usual care. Supportive care, plan of management and treatments. [place], [place] PROGRESS NOTE NAME: DARRIN CUELLAR UNIT #: [id number] ROOM: 506 DOCTOR: JOSE J GUERRERO MD BIRTHDATE: [birth year] JOSE J TOMPKINS MD CM:PNTRANS 1023 17 JOSE J JAEGER MD 04/27/188 interface
--- NOTE | ~2018-04-25 | PR ---
[place], [place] PROGRESS NOTE NAME: DARRIN CUELLAR UNIT #: [id number] ROOM: 506 DOCTOR: UMESH VILLEDA BIRTHDATE: [birth year] DOS: 05/03/2018 SUBJECTIVE: The patient was noted comfortable at this time. The patient notes decreased coughing and is feeling better. The patient denies chest pain, shortness of breath as well as fevers or chills. The patient feels ready to be discharged. OBJECTIVE: VITAL SIGNS: The patient has normal temperature, respirations 18, heart rate 77, blood pressure 142/78, pulse oxygen saturation on 2 liters nasal cannula 94% saturation this morning. HEENT: No acute change. NECK: Supple. CARDIOVASCULAR: S1, S2 audible. LUNGS: Decreased breath sounds bilaterally. Lungs are clear. ABDOMEN: Soft, nontender. EXTREMITIES: Without acute edema. MUSCULOSKELETAL: Without acute deformation. CENTRAL NERVOUS SYSTEM: Grossly intact. LABORATORY DATA: CBC: White blood cell count normal, hemoglobin 11.9, platelet count normal. CMP this morning; BUN 40, creatinine 2.06. IMPRESSION: Basilar area of atelectasis as well as acute pneumonia. The patient has improved since the bronchoscopy. PLAN OF MANAGEMENT: The patient can be discharged from a pulmonary standpoint at this time. Chest x-ray was better today. The patient can be discharged on antibiotics and steroid taper at this time. UMESH VILLEDA DO [place], [place] PROGRESS NOTE NAME: DARRIN CUELLAR UNIT #: [id number] ROOM: 506 DOCTOR: UMESH VILLEDA BIRTHDATE: [birth year] JOSE J TOMPKINS MD CM:PNTRANS 1126 [id number] UMESH VILLEDA 05/04/18 0250 interface
[~2018-04-25 20:41] MED LIST changes: +FUROSEMIDE40 MG PO; +K-TAB10 MEQ PO; +LEXAPRO5 M1 PO; +LOPRESSOR25 MG PO; +LORATADINE10 M3 PO; +SYMB160 INH
[2018-04-25 20:48] VITALS: BP 166/85
[2018-04-25 22:14] LABS: BASO # 0.1 10*3/uL (0.0-0.1); BASO % 0.5 % (0.0-1.0); EOS % 0.1 % (1.0-4.0); HEMATOCRIT 42.4 % (42.0-52.0); LYMPH # 0.6 10*3/uL (1.3-4.4); LYMPH % 6.3 % (27.0-41.0); MEAN PLATELET VOLUME 9.8 fl (9.6-12.3); MONO # 0.5 10*3/uL (0.1-1.0); MONO % 4.7 % (3.0-9.0); NEUT % 87.9 % (47.0-73.0); PLATELET COUNT AUTOMATED 244 10*3/uL (130-400); RED BLOOD COUNT 4.82 10*6/uL (4.50-5.90); RED CELL DISTRI WIDTH 14.1 % (0-14.5); WHITE BLOOD COUNT 10.2 10*3/uL (4.8-10.8)
[2018-04-25 22:30] VITALS: BP 153/77
[2018-04-25 22:31] LABS: ALBUMIN 2.6 gm/dl (3.1-4.5); CREATININE 1.91 mg/dL (0.70-1.30); POTASSIUM 4.1 mmol/L (3.5-5.1); TOTAL PROTEIN 6.7 gm/dL (6.4-8.2)
[2018-04-25 22:56] LABS: TROPONIN I 1.32 ng/ml (<0.045)
[2018-04-25 23:20] VITALS: BP 137/72
[2018-04-26 00:20] VITALS: BP 132/82
[2018-04-26] MEDS ORDERED: APRESOLINE25 MG PO (01:08)
[2018-04-26] MEDS ORDERED: LEVOTHYROXINE200 MC2 PO (01:08)
[2018-04-26] MEDS ORDERED: METOPROLOL SUCC50 M1 PO (01:09)
[2018-04-26] MEDS ORDERED: ISOSORBIDE30 MG PO (01:10)
[2018-04-26] MEDS ORDERED: VISTARIL25 MG PO (01:12)
[2018-04-26] MEDS ORDERED: LIPITOR40 MG PO (01:12)
[2018-04-26 02:06] LABS: TROPONIN I 1.11 ng/ml (<0.045)
[2018-04-26 04:00] VITALS: BP 144/78
[2018-04-26 04:18] LABS: HEMATOCRIT 39.3 % (42.0-52.0); HEMOGLOBIN 13.1 g/dl (14.0-18.0); MEAN CELL VOLUME 88.3 fl (80.0-94.0); MEAN CORPUSCULAR HGB 29.4 pg (27.0-31.0); MEAN CORPUSCULAR HGB CONC 33.3 g/dl (33.0-37.0); MEAN PLATELET VOLUME 10.1 fl (9.6-12.3); PLATELET COUNT AUTOMATED 226 10*3/uL (130-400); RED BLOOD COUNT 4.45 10*6/uL (4.50-5.90); WHITE BLOOD COUNT 8.3 10*3/uL (4.8-10.8)
[2018-04-26 04:30] LABS: ACT PARTIAL THROMBO TIME 34.9 SECONDS (20.8-31.5); INTERNATIONAL NORM RATIO 1.1 (2.0-3.5)
[2018-04-26 04:34] LABS: ALBUMIN 2.3 gm/dl (3.1-4.5); CREATININE 1.83 mg/dL (0.70-1.30); PHOSPHOROUS 3.3 mg/dL (2.5-4.9); POTASSIUM 4.2 mmol/L (3.5-5.1); TOTAL PROTEIN 6.2 gm/dL (6.4-8.2)
[2018-04-26 04:36] LABS: FREE T4 1.35 ng/dl (0.76-1.46)
[2018-04-26 04:40] LABS: THYROID STIM HORMONE (HS) 0.992 uIU/ml (0.358-4.75)
[2018-04-26 05:03] LABS: PLATELET SUFFICIENCY NORMAL (NORMAL); TOTAL CELLS COUNTED 100 #CELLS
[2018-04-26 08:00] VITALS: BP 154/85
[2018-04-26 12:00] VITALS: BP 149/84
[2018-04-26 16:00] VITALS: BP 131/74
[2018-04-26 20:00] VITALS: BP 136/71
[2018-04-27] VITALS: BP 131/73
[2018-04-27 08:00] VITALS: BP 138/72
[2018-04-27 09:15] LABS: HEMATOCRIT 37.4 % (42.0-52.0); HEMOGLOBIN 12.6 g/dl (14.0-18.0); LYMPH # 0.8 10*3/uL (1.3-4.4); LYMPH % 7.4 % (27.0-41.0); MEAN CELL VOLUME 88.4 fl (80.0-94.0); MEAN CORPUSCULAR HGB 29.8 pg (27.0-31.0); MEAN CORPUSCULAR HGB CONC 33.7 g/dl (33.0-37.0); MEAN PLATELET VOLUME 9.4 fl (9.6-12.3); MONO # 0.6 10*3/uL (0.1-1.0); MONO % 5.7 % (3.0-9.0); NEUT % 86.4 % (47.0-73.0); PLATELET COUNT AUTOMATED 266 10*3/uL (130-400); RED BLOOD COUNT 4.23 10*6/uL (4.50-5.90); RED CELL DISTRI WIDTH 14.2 % (0-14.5); WHITE BLOOD COUNT 10.4 10*3/uL (4.8-10.8)
[2018-04-27 09:30] LABS: ALBUMIN 2.3 gm/dl (3.1-4.5); CREATININE 2.19 mg/dL (0.70-1.30)
[2018-04-27 12:00] VITALS: BP 141/77
[2018-04-27 16:00] VITALS: BP 138/87
[2018-04-27 20:00] VITALS: BP 153/81
[2018-04-28] VITALS: BP 128/59
[2018-04-28 06:27] LABS: BASO % 0.5 % (0.0-1.0); EOS # 0.1 10*3/uL (0.0-0.4); EOS % 1.6 % (1.0-4.0); HEMATOCRIT 36.6 % (42.0-52.0); HEMOGLOBIN 11.7 g/dl (14.0-18.0); LYMPH # 1.2 10*3/uL (1.3-4.4); LYMPH % 15.7 % (27.0-41.0); MEAN CELL VOLUME 89.7 fl (80.0-94.0); MEAN CORPUSCULAR HGB 28.7 pg (27.0-31.0); MONO # 0.6 10*3/uL (0.1-1.0); MONO % 8.3 % (3.0-9.0); NEUT # 5.4 10*3/uL (2.3-7.9); NEUT % 73.2 % (47.0-73.0); PLATELET COUNT AUTOMATED 278 10*3/uL (130-400); RED BLOOD COUNT 4.08 10*6/uL (4.50-5.90); RED CELL DISTRI WIDTH 14.5 % (0-14.5); WHITE BLOOD COUNT 7.3 10*3/uL (4.8-10.8)
[2018-04-28 06:56] LABS: CREATININE 2.05 mg/dL (0.70-1.30); POTASSIUM 3.8 mmol/L (3.5-5.1)
[2018-04-28 08:00] VITALS: BP 132/68
[2018-04-28 12:00] VITALS: BP 149/82
[2018-04-28 16:00] VITALS: BP 152/92
[2018-04-28 20:00] VITALS: BP 146/78
[2018-04-29] VITALS: BP 150/73
[2018-04-29 06:47] LABS: BASO % 0.6 % (0.0-1.0); EOS # 0.2 10*3/uL (0.0-0.4); EOS % 3.3 % (1.0-4.0); HEMATOCRIT 38.1 % (42.0-52.0); HEMOGLOBIN 12.3 g/dl (14.0-18.0); MEAN CELL VOLUME 89.9 fl (80.0-94.0); MEAN CORPUSCULAR HGB CONC 32.3 g/dl (33.0-37.0); MEAN PLATELET VOLUME 9.7 fl (9.6-12.3); MONO # 0.6 10*3/uL (0.1-1.0); MONO % 8.3 % (3.0-9.0); NEUT # 5.3 10*3/uL (2.3-7.9); NEUT % 73.4 % (47.0-73.0); PLATELET COUNT AUTOMATED 295 10*3/uL (130-400); RED BLOOD COUNT 4.24 10*6/uL (4.50-5.90); RED CELL DISTRI WIDTH 14.6 % (0-14.5); WHITE BLOOD COUNT 7.2 10*3/uL (4.8-10.8)
[2018-04-29 06:56] LABS: CREATININE 2.06 mg/dL (0.70-1.30); POTASSIUM 4.4 mmol/L (3.5-5.1)
[2018-04-29 09:53] VITALS: BP 142/70
[2018-04-29 12:00] VITALS: BP 153/86
[2018-04-29 16:00] VITALS: BP 155/86
[2018-04-29 20:00] VITALS: BP 155/93
[2018-04-30] VITALS: BP 151/80
[2018-04-30 06:20] LABS: BASO % 0.5 % (0.0-1.0); EOS # 0.1 10*3/uL (0.0-0.4); EOS % 1.6 % (1.0-4.0); HEMATOCRIT 38.6 % (42.0-52.0); HEMOGLOBIN 12.3 g/dl (14.0-18.0); LYMPH # 1.1 10*3/uL (1.3-4.4); LYMPH % 14.6 % (27.0-41.0); MEAN CELL VOLUME 89.8 fl (80.0-94.0); MEAN CORPUSCULAR HGB 28.6 pg (27.0-31.0); MEAN CORPUSCULAR HGB CONC 31.9 g/dl (33.0-37.0); MEAN PLATELET VOLUME 9.7 fl (9.6-12.3); MONO # 0.5 10*3/uL (0.1-1.0); MONO % 7.1 % (3.0-9.0); NEUT # 5.5 10*3/uL (2.3-7.9); NEUT % 75.4 % (47.0-73.0); PLATELET COUNT AUTOMATED 284 10*3/uL (130-400); RED CELL DISTRI WIDTH 14.6 % (0-14.5); WHITE BLOOD COUNT 7.3 10*3/uL (4.8-10.8)
[2018-04-30 06:46] LABS: CREATININE 1.87 mg/dL (0.70-1.30); POTASSIUM 4.2 mmol/L (3.5-5.1)
[2018-04-30 08:00] VITALS: BP 150/78
[2018-04-30 12:00] VITALS: BP 141/77
[2018-04-30 16:00] VITALS: BP 143/73
[2018-04-30 20:00] VITALS: BP 158/78
[2018-05-01] VITALS: BP 155/77
[2018-05-01 06:18] LABS: BASO % 0.5 % (0.0-1.0); EOS # 0.2 10*3/uL (0.0-0.4); EOS % 2.2 % (1.0-4.0); HEMOGLOBIN 12.6 g/dl (14.0-18.0); LYMPH % 13.3 % (27.0-41.0); MEAN CELL VOLUME 91.3 fl (80.0-94.0); MEAN CORPUSCULAR HGB 29.5 pg (27.0-31.0); MEAN CORPUSCULAR HGB CONC 32.3 g/dl (33.0-37.0); MEAN PLATELET VOLUME 10.2 fl (9.6-12.3); MONO # 0.7 10*3/uL (0.1-1.0); MONO % 9.3 % (3.0-9.0); NEUT # 5.8 10*3/uL (2.3-7.9); NEUT % 73.9 % (47.0-73.0); PLATELET COUNT AUTOMATED 289 10*3/uL (130-400); RED BLOOD COUNT 4.27 10*6/uL (4.50-5.90); RED CELL DISTRI WIDTH 14.7 % (0-14.5); WHITE BLOOD COUNT 7.8 10*3/uL (4.8-10.8)
[2018-05-01 06:49] LABS: ALBUMIN 2.3 gm/dl (3.1-4.5); CREATININE 2.01 mg/dL (0.70-1.30); POTASSIUM 4.3 mmol/L (3.5-5.1)
[2018-05-01 08:00] VITALS: BP 130/72
[2018-05-01 12:00] VITALS: BP 134/75
[2018-05-01 16:00] VITALS: BP 141/77
[2018-05-01 20:00] VITALS: BP 150/85
[2018-05-02] VITALS (9 sets, daily range): BP systolic 132–152; BP diastolic 69–84
[2018-05-02 07:04] LABS: BASO % 0.5 % (0.0-1.0); EOS # 0.3 10*3/uL (0.0-0.4); EOS % 3.7 % (1.0-4.0); HEMATOCRIT 38.9 % (42.0-52.0); HEMOGLOBIN 12.5 g/dl (14.0-18.0); LYMPH # 1.5 10*3/uL (1.3-4.4); LYMPH % 16.8 % (27.0-41.0); MEAN CELL VOLUME 90.5 fl (80.0-94.0); MEAN CORPUSCULAR HGB 29.1 pg (27.0-31.0); MEAN CORPUSCULAR HGB CONC 32.1 g/dl (33.0-37.0); MEAN PLATELET VOLUME 10.2 fl (9.6-12.3); MONO # 0.8 10*3/uL (0.1-1.0); MONO % 9.4 % (3.0-9.0); NEUT % 68.9 % (47.0-73.0); PLATELET COUNT AUTOMATED 285 10*3/uL (130-400); RED CELL DISTRI WIDTH 14.6 % (0-14.5); WHITE BLOOD COUNT 8.7 10*3/uL (4.8-10.8)
[2018-05-02 07:33] LABS: ALBUMIN 2.2 gm/dl (3.1-4.5); POTASSIUM 3.8 mmol/L (3.5-5.1)
[2018-05-02 07:37] LABS: CREATININE 2.2 mg/dL (0.70-1.30); TOTAL PROTEIN 6.2 gm/dL (6.4-8.2)
[2018-05-02 21:37] LABS: BILIRUBIN NEGATIVE (NEGATIVE); BLOOD TRACE-INTACT (NEGATIVE); CLARITY CLOUDY (CLEAR); COLOR YELLOW (YELLOW); GLUCOSE NEGATIVE (NEGATIVE); KETONE NEGATIVE (NEGATIVE); LEUKO ESTERASE 2+ (NEGATIVE); NITRITE NEGATIVE (NEGATIVE); PH 5.5 (5.0-9.0); SPECIFIC GRAVITY >= 1.030 (1.005-1.030); UROBILINOGEN 0.2 E.U./dl (0.2-1.0)
[2018-05-02 21:45] LABS: WBC TNTC wbc/hpf (0-5)
[2018-05-03] VITALS: BP 159/75
[2018-05-03 00:50] VITALS: BP 161/83
[2018-05-03 00:55] VITALS: BP 142/78
[2018-05-03 06:42] LABS: BASO # 0.1 10*3/uL (0.0-0.1); BASO % 0.6 % (0.0-1.0); EOS # 0.2 10*3/uL (0.0-0.4); EOS % 2.7 % (1.0-4.0); HEMATOCRIT 36.6 % (42.0-52.0); HEMOGLOBIN 11.9 g/dl (14.0-18.0); LYMPH # 0.9 10*3/uL (1.3-4.4); LYMPH % 11.1 % (27.0-41.0); MEAN CELL VOLUME 89.3 fl (80.0-94.0); MEAN CORPUSCULAR HGB CONC 32.5 g/dl (33.0-37.0); MEAN PLATELET VOLUME 10.1 fl (9.6-12.3); MONO # 0.8 10*3/uL (0.1-1.0); MONO % 9.6 % (3.0-9.0); NEUT # 6.3 10*3/uL (2.3-7.9); NEUT % 75.5 % (47.0-73.0); PLATELET COUNT AUTOMATED 249 10*3/uL (130-400); RED CELL DISTRI WIDTH 14.5 % (0-14.5); WHITE BLOOD COUNT 8.4 10*3/uL (4.8-10.8)
[2018-05-03 06:49] LABS: CREATININE 2.06 mg/dL (0.70-1.30); POTASSIUM 3.5 mmol/L (3.5-5.1)
[2018-05-03 12:00] VITALS: BP 133/62
[2018-05-03] MEDS ORDERED: MUCINEX ER600 MG PO (12:09)
[2018-05-03] MEDS ORDERED: TOPROL XL50 M1 PO (12:09)
[2018-05-03] MEDS ORDERED: LEVAQUIN750 M1 PO (12:09)
[2018-05-03] MEDS ORDERED: LASIX20 MG PO (12:14)
[2018-05-03] MEDS ORDERED: KLOR-CON M1010 ME1 PO (13:12)
[2018-05-03 15:07] LABS: ACID FAST SPEC PROCESSING Concentration (.)
== END 2018-05-03 15:04 | disposition home health service (06) | DRG 871 ==
LOC: ED 20:41 → 5E 23:39 → ICCU 23:39 → 5E 04-26 11:10
PROVIDERS: Family Medicine; Internal Medicine; Internal Medicine Critical Care Medicine; Internal Medicine Nephrology; Podiatrist Primary Podiatric Medicine; Student in an Organized Health Care Education/Training Program
PROC: 0BCB8ZZ Extirpation of Matter from Left Lower Lobe Bronchus, Via Natural or Artificial Opening Endoscopic (ICD-10-PCS; principal; 2018-05-02)
PROC: 0BC18ZZ Extirpation of Matter from Trachea, Via Natural or Artificial Opening Endoscopic (ICD-10-PCS; principal; 2018-05-02)
DX: A41.9 Sepsis, unspecified organism (principal); E43 Unspecified severe protein-calorie malnutrition; J96.01 Acute respiratory failure with hypoxia; I21.3 ST elevation (STEMI) myocardial infarction of unspecified site; I50.23 Acute on chronic systolic (congestive) heart failure; J18.1 Lobar pneumonia, unspecified organism; E87.1 Hypo-osmolality and hyponatremia; I13.0 Hypertensive heart and chronic kidney disease with heart failure and stage 1 through stage 4 chronic kidney disease, or unspecified chronic kidney disease; J98.11 Atelectasis; N17.9 Acute kidney failure, unspecified; R91.1 Solitary pulmonary nodule; N18.3 Chronic kidney disease, stage 3 (moderate); R74.8 Abnormal levels of other serum enzymes; I27.20 Pulmonary hypertension, unspecified; R07.89 Other chest pain; I25.5 Ischemic cardiomyopathy; E87.6 Hypokalemia; E83.51 Hypocalcemia; R79.82 Elevated C-reactive protein (CRP); R59.0 Localized enlarged lymph nodes; K27.9 Peptic ulcer, site unspecified, unspecified as acute or chronic, without hemorrhage or perforation; E78.5 Hyperlipidemia, unspecified; K21.9 Gastro-esophageal reflux disease without esophagitis; E11.65 Type 2 diabetes mellitus with hyperglycemia; I35.1 Nonrheumatic aortic (valve) insufficiency; J43.9 Emphysema, unspecified; Y95 Nosocomial condition; E11.22 Type 2 diabetes mellitus with diabetic chronic kidney disease; I25.10 Atherosclerotic heart disease of native coronary artery without angina pectoris; Z96.1 Presence of intraocular lens; F41.9 Anxiety disorder, unspecified; E66.3 Overweight; Z68.25 Body mass index [BMI] 25.0-25.9, adult; Z88.8 Allergy status to other drugs, medicaments and biological substances; Z91.018 Allergy to other foods; Z87.891 Personal history of nicotine dependence; Z82.49 Family history of ischemic heart disease and other diseases of the circulatory system; Z85.068 Personal history of other malignant neoplasm of small intestine; Z79.82 Long term (current) use of aspirin; Z79.899 Other long term (current) drug therapy; Z79.84 Long term (current) use of oral hypoglycemic drugs; Z98.42 Cataract extraction status, left eye; Z98.41 Cataract extraction status, right eye

== ENCOUNTER 2018-05-08 03:20 | Inpatient (IN) | payer OTHER ==
[~2018-05-08] VITALS: Ht 193 cm; Wt 91.8 kg
[2018-05-08] VITALS (7 sets, daily range): BP systolic 141–172; BP diastolic 70–108
--- NOTE | ~2018-05-08 | PR ---
[place], [place] PROGRESS NOTE NAME: DARRIN CUELLAR UNIT #: [id number] ROOM: 502 DOCTOR: UMESH VILLEDA BIRTHDATE: [birth year] DOS: 05/12/2018 PULMONARY PROGRESS NOTE SUBJECTIVE: The patient is noted sitting comfortably on his bed at this time without any signs of acute distress. The patient states his shortness of breath has decreased and he is almost at his normal baseline. The patient denies symptoms of fevers or chills. OBJECTIVE: VITAL SIGNS: Temperature normal, respiratory rate 20, heart rate 97, blood pressure 130/70, pulse oxygen saturation on 2 liters nasal cannula 97% saturation. HEENT: Head was atraumatic. Eyes nonicterus. NECK: Supple. CARDIOVASCULAR: S1, S2 audible. LUNGS: Slight crackles. ABDOMEN: Soft, nontender. EXTREMITIES: No acute deformities. CENTRAL NERVOUS SYSTEM: Grossly intact. LABORATORY DATA: CBC 05/12/2018, white blood cell count 7.4, hemoglobin 11.2, platelet count 212. CMP on 05/12/2018, BUN 57, creatinine 1.91, carbon dioxide 25, glucose 169. Pleural fluid, total protein 1.3. Serum total protein 5.5. Pleural fluid LDH 74. Serum LDH 163. IMPRESSION: 1. Stable acute coronary injury. 2. Resolving exacerbation of congestive heart failure with persistent bilateral pleural fluid. 3. The patient with acute respiratory failure. PLAN OF TREATMENT: The patient is stable from a Pulmonary standpoint at this time. Other previous treatment may be continued in the meantime. UMESH VILLEDA DO [place], [place] PROGRESS NOTE NAME: DARRIN CUELLAR UNIT #: [id number] ROOM: 502 DOCTOR: UMESH VILLEDA BIRTHDATE: [birth year] JOSE J TOMPKINS MD CM:PNTRANS 36 UMESH VILLEDA 05/13/18 0843 interface
--- NOTE | ~2018-05-08 | EKG ---
[place], [place] ELECTROCARDIOGRAM REPORT NAME: DARRIN CUELLAR UNIT #: [id number] ROOM: [facility] DOCTOR: CHRIS DRAFT REPORT BIRTHDATE: [birth year] [facility] Test Date: 2018-05-08 Test Time: 03:34:13 Pat Name: DARRIN CUELLAR Department: Room: [facility] Gender: M Switch Foreman: Ge Castanon : 1935 Requested By: JENNIFER MALIN Order Number: [id number] Reading MD: Corinne Dee MD Measurements Intervals [place] Rate: 106 P: 17 MN: 189 QRS: 3 QRSD: 101 T: 143 QT: 368 QTc: 489 Interpretive Statements Sinus tachycardia Ventricular premature complete Anterior infarct, recent Compared to ECG 05/03/2018 00:54:49 Ventricular premature complex(es) now present Left-axis deviation no longer present Prolonged QT interval no longer present Myocardial infarct finding still present Electronically Signed On 05-11-2018 7:27:38 PST by Corinne Dee MD CM:EKGRPT:ELECTROCARDIOGRAM REPORT [id number] JENNIFER MORALES DRAFT REPORT JENNIFER MALIN DO
--- NOTE | ~2018-05-08 | CON ---
[place], [place] REPORT OF CONSULTATION NAME: DARRIN CUELLAR [facility] #: [id number] UNIT #: [id number] ROOM: [facility] DOCTOR: JOSE J GUERRERO MD BIRTHDATE: [birth year] DOS: 05/08/2018 PULMONARY CONSULTATION, EVALUATION AND MANAGEMENT CONSULTATION REQUESTED BY: Hospitalist service. REASON FOR CONSULTATION: For assessment of current symptoms of shortness of breath and respiratory failure. HISTORY OF PRESENT ILLNESS: This is an 82-year-old white male who has been known to me from the hospital. The patient has been admitted to the hospital recently and discharged home on 05/03/2018. The patient was treated at that time for the acute congestive heart failure, bilateral pleural fluid, acute pneumonia as a therapeutic bronchoscopy done on 05/02/2018, which was noted with no bacterial growth. The patient has been noted symptomatic improvement and discharged home. He was also noted with a renal failure as well, which has been managed by the Nephrology services. The patient has been prescribed the diuretic therapy. The patient seemed like has not picked up the prescription from the pharmacy and is not be using diuretics. He reported his symptoms of getting progressive shortness of breath in the past, couple of days with severe worsening shortness of breath and early this morning, the patient requiring assessment in the Emergency Room. The patient has been assessed in the Emergency Room at this time noted with tachypnea, tachycardia and starting the BiPAP and other medical management admitted to the hospital. He was reporting symptoms of orthopnea as well. The patient denies symptoms of wheezing. Mild nonproductive cough reported. REVIEW OF SYSTEMS: Remaining systems were reviewed. They were noted all negative. PAST MEDICAL HISTORY: The patient was known with history of: 1. COPD. 2. Coronary artery disease. 3. Chronic kidney disease stage 3. 4. Descending abdominal aortic aneurysm. 5. Congestive heart failure, diastolic dysfunction. 6. Essential hypertension. 7. Gastroesophageal reflux. 8. 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 9. Vitamin D deficiency. 10. Hyperlipidemia. PAST SURGICAL HISTORY: 1. EGD. 2. Bilateral cataract extraction and implantation. 3. Abdominal aneurysm repair. 4. Cardiac catheterization. 5. Partial resection of duodenum for duodenal cancer. 6. Therapeutic bronchoscopy done in 04/2018. [place], [place] REPORT OF CONSULTATION NAME: DARRIN CUELLAR [facility] #: [id number] UNIT #: [id number] ROOM: [facility] DOCTOR: LEDA JAEGER MD,JOSE J BIRTHDATE: [birth year] SOCIAL HISTORY: The patient is , has 2 children, and lives at home. Denies history of alcohol use, illicit drug use. Tobacco is noted from the age of 16-17 years old, 2 packs of cigarettes until 2002. No history of alcohol or illicit drug use. FAMILY HISTORY: Noncontributory. CURRENT MEDICATIONS: Administered for the patient on this hospitalization, vitamin D, loratadine, potassium chloride, aspirin, levothyroxine, Lipitor, Imdur, metoprolol succinate, Lasix 40 mg b.i.d., hydralazine, albuterol sulfate via nebulizer q. 6 h, Pulmicort Respules, hydroxyzine, Lovenox 40 mg subcutaneous daily, Protonix, heparin, intravenous and other medications. DRUG ALLERGIES: THE PATIENT NOTED ALLERGIC TO: 1. LORAZEPAM. 2. AMBIEN. PHYSICAL EXAMINATION: GENERAL: This is an 82-year-old white male who has been noted currently awake and alert, sitting on side of bed without any severe acute respiratory distress this morning of assessment in the Intensive Care Unit as use the BiPAP. The patient currently using oxygen supplementation. BiPAP was used by the patient for several hours earlier. VITAL SIGNS: Height noted 6 feet 4 inches, weight of 219, BUN 26. Vital signs, which has been noted as a normal temperature since admission, respiratory rate of 19-24, heart rate of 91-118, blood pressure 143/83-146/74. Pulse oxygen saturation recorded as BiPAP 98% with 5 liter nasal cannula was 90% saturation. HEENT: Examination shows head was atraumatic. Eyes nonicterus. NECK: Supple. CARDIOVASCULAR: S1, S2 is audible. LUNGS: Noted with general reduction in breath sounds bilaterally. Crackles in the lung were noted. There were no wheezing present. ABDOMEN: Soft, nontender. EXTREMITIES: The patient noted with edema. VISIBLE SKIN: No lesions or rashes. MUSCULOSKELETAL: Without acute deformities. SKIN: Without lesions or rashes. CENTRAL NERVOUS SYSTEM: Cranial nerves 2-12 intact. LABORATORY DATA: Lactic acid on 05/09/2018 was noted 1.3. PT/INR is 1.1, which was normal this morning. CMP on admission this morning, BUN 41, creatinine 1.98, glucose 170. AST 43. The BMP was noted as 30,000 greater. CBC: WBC count normal, hemoglobin and hematocrit, platelet count were all noted normal. Arterial blood gas pH of 7.38, pCO2 of 29, pO2 of 80 consistent with metabolic acidosis. Chest x-ray, which was done shows recurrence of congestive heart failure finding with pleural effusions and basilar areas of atelectasis. Troponin 0.10, which has been done this morning remains 0.09 and 0.10. IMPRESSION: 1. The patient will be currently admitted to the hospital with acute [place], [place] REPORT OF CONSULTATION NAME: DARRIN CUELLAR UNIT #: [id number] ROOM: [facility] DOCTOR: QUIANA GUERRERO MDM BIRTHDATE: [birth year] decompensation of congestive heart failure with diastolic dysfunction symptoms of shortness of breath, also noted metabolic alkalosis. 2. The patient with a recent admission for acute on chronic injury and pneumonia. There was no clinical evidence of pneumonia noted at the present time. 3. The patient with a history of chronic obstructive pulmonary disease. The patient has well without any findings of acute exacerbation. 4. Other medical illness has reported in the past history. 5. The patient with chronic kidney disease stage 3 was noted as well. PLAN OF MANAGEMENT: The BiPAP to improve congestive heart failure management. The patient was started BiPAP /8 that will be continued maintaining the day, continue at nighttime, mildly prominent troponin was noted. Cardiology recommendation for that. Assessment and management for the patient. The recommendation from them. Continue bronchodilators, there was no need of corticosteroids. Monitor chest x-ray with current diuretics. Continue high dose diuretic for close monitoring of electrolytes. Usual care, other supportive therapy, plan of management, care plan with additional treatment changes will be made based on progression of the illness. Titrate oxygen supplementation, maintain pulse ox saturation 90% or greater. Usual care, other supportive plan of management, treatment and plan of care. Additional treatment changes will be ordered based on progression of the illness. Pleural fluid at this time will be clinically monitored and thoracentesis could be done if they become progressive on case of kidney failure or other limitation with difficulty rather to use the diuretics at that time. Supportive plan of management, care plan and other therapies as well. Thanks for allowing me to participate in care of this patient. JOSE J TOMPKINS MD CM:CONSTR:REPORT OF CONSULTATION 1516 05/08/18 1617 interface
--- NOTE | ~2018-05-08 | PR ---
[place], [place] PROGRESS NOTE NAME: DARRIN CUELLAR [facility] #: [id number] UNIT #: [id number] ROOM: [facility] DOCTOR: LEDA JAEGER MD,JOSE J BIRTHDATE: [birth year] DOS: 05/10/2018 SUBJECTIVE: The patient noted comfortable at this time without any acute distress. Has not been reported with any symptoms of chest pain. Shortness of breath occurred with exertion. Diuretic therapy was continued. Denies symptoms of nausea, vomiting, diarrhea, abdominal pain, hematemesis, melena. Denies any significant edema of the lower extremities or any pain of the lower extremities. Symptoms of headache or diplopia. Remaining systems were reviewed. They were noted all negative. OBJECTIVE: VITAL SIGNS: Normal temperature, respiratory rate 20, heart rate 70, and blood pressure 130/90. The pulse oxygen saturation on 2 liters nasal cannula 94% saturation. HEENT: Head was atraumatic. Eyes nonicterus. NECK: Supple. CARDIOVASCULAR: S1, S2 is audible. LUNGS: The patient noted decreased breaths in the low portion of lungs. Scattered crackles of the lung. There was no wheezing. ABDOMEN: Soft and nontender. Bowel sounds present. EXTREMITIES: No acute edema. VISIBLE SKIN: No lesions or rashes. MUSCULOSKELETAL: Without any acute deformities. CENTRAL NERVOUS SYSTEM: General weakness and fatigue. There were no focal deficits. LABORATORY DATA: BMP today: BUN of 59, creatinine 2.66, glucose 164 with further mild elevation of the creatinine from yesterday. Blood cultures, no bacterial growth for 2nd of this month with urine culture showed no bacterial growths. IMPRESSION: 1. The patient who has been currently noted with stable respiratory status, but no further improvement noted in congestive heart failure. Ultrasound of the chest was performed at the bedside, still noted with moderate sized pleural fluid with mild reduction of the patient was noted significant negative fluid balance. 2. Acute coronary injury secondary to congestive heart failure and diuretics combination which is persistent. Intermittent tachycardia as well. 3. The patient with chronic obstructive pulmonary disease as well. PLAN OF MANAGEMENT: Continuation of the bronchodilator with oxygen supplementation. The patient will be planned for the thoracentesis to assess the patient at the bedside with the ultrasound guidance was planned. Continuation of other previous therapy, plan of management, care plan, oxygen supplementation. Continue the BiPAP to stabilize the congestive heart failure and other respiratory symptoms of shortness of breath. Usual care. [place], [place] PROGRESS NOTE NAME: DARRIN CUELLAR UNIT #: [id number] ROOM: [facility] DOCTOR: JOSE J GUERRERO MD BIRTHDATE: [birth year] JOSE J TOMPKINS MD CM:PNTRANS [id number] JOSE J JAEGER MD 05/10/18 1521 interface
--- NOTE | ~2018-05-08 | PR ---
[place], [place] PROGRESS NOTE NAME: DARRIN CUELLAR UNIT #: [id number] ROOM: [facility] DOCTOR: JOSE J GUERRERO MD BIRTHDATE: [birth year] DOS: 05/11/2018 SUBJECTIVE: The patient's respiratory status remains unchanged. Denies symptoms of fever or chills. Denies symptoms of hemoptysis. Denies symptoms of nausea, vomiting, shortness of breath, still noted with exertion, but it was decreasing. The patient has not been reported any symptoms of nausea, vomiting, or diarrhea. The medication were noted all negative. Ultrasound of the chest was performed again at the bedside was noted. Moderate sized bilateral, pleural fluid still persisted. Remaining systems were noted negative. OBJECTIVE: VITAL SIGNS: Normal temperature, respiratory rate 19, heart rate 63, blood pressure 130/70. The pulse oxygen saturation on 2 liters nasal cannula 94% saturation. HEENT: Head was atraumatic. Eyes nonicterus. NECK: Supple. CARDIOVASCULAR: S1, S2 audible. LUNGS: The patient was noted without any wheezing or crackles. Decreased breaths, low portion lungs as previously. ABDOMEN: Soft, nontender. Bowel sounds present. EXTREMITIES: Without acute edema. VISIBLE SKIN: No lesions or rashes. MUSCULOSKELETAL: Without acute deformities. CENTRAL NERVOUS SYSTEM: Cranial nerves 2-12 intact. LABORATORY DATA: CBC that was done this morning, WBC count normal, hemoglobin 12.1, platelet count was normal. The BMP of patient this morning, BUN of 60, creatinine 2.25, glucose 156/147. The urine culture from 05/09/2018 showed no bacterial growth. IMPRESSION: 1. The patient with a stable acute coronary injury at the present time with the diuretic. 2. Ongoing congestive heart failure, persistent bilateral pleural fluid, not resolving. 3. The patient with acute respiratory failure. 4. Congestive heart failure, responding to current BiPAP. PLAN OF TREATMENT: Thoracentesis to be done bilaterally today at the bedside. Other previous treatment to be continued. Any modification treatment if necessary will be ordered after the thoracentesis. [place], [place] PROGRESS NOTE NAME: DARRIN CUELLAR UNIT #: [id number] ROOM: [facility] DOCTOR: AZIZ JOSE J JAEGER MD BIRTHDATE: [birth year] JOSE J TOMPKINS MD CM:GREGORIO [id number] JOSE J JAEGER MD 05/11/18 1312 interface
--- NOTE | ~2018-05-08 | PROC NOTE ---
[place], [place] PROCEDURE NOTE NAME: [id number] UNIT #: [id number] ROOM: [facility] DOCTOR: LEDA JAEGER MD,JOSE J BIRTHDATE: [birth year] DOS: 05/11/2018 PROCEDURE: Right-sided thoracentesis. PREOPERATIVE DIAGNOSIS: Persistent moderate pleural fluid right side, thoracentesis without any complication, on the right side with removal of 533 mL of pleural fluid. PROCEDURE DESCRIPTION: Informed consent obtained with the patient. The patient was placed in sitting position. The site of thoracentesis procedure mid chest wall was already marked thoracentesis. Skin was cleaned with chlorhexidine solution. 1% lidocaine was administered in the skin intercostal space. During admission of local anesthetic, the left pleural space was entered. A small amount of fluid was aspirated. After that small incision given in the skin. [place] thoracentesis catheter introduced through the incision into the right pleural space. A total of 533 mL of pleural fluid was removed, which was sent for all the appropriate testing. The procedure well tolerated without any complication ____ at the bedside. JOSE J TOMPKINS MD CM:PROCNOTE:PROCEDURE NOTE [id number] JOSE J JAEGER MD
--- NOTE | ~2018-05-08 | PR ---
[place], [place] PROGRESS NOTE NAME: DARRIN CUELLAR UNIT #: [id number] ROOM: 502 DOCTOR: MARLENY ALTMAN MD BIRTHDATE: [birth year] DOS: 05/12/2018 CARDIOLOGY PROGRESS NOTE SUBJECTIVE: The patient was seen at his bedside today 05/12/2018 for followup of his recent [id number] MD with subsequent ischemic cardiomyopathy. He was recently hospitalized with heart failure, but his medications were adjusted and he was doing well. 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 Even though, he was doing well when he left the hospital within a few days, he deteriorated and came back into the hospital for recurrence of his heart failure. In the hospital, we have diuresed him and resumed the medications he was on at the time of his last discharge and he feels much better. PHYSICAL EXAMINATION: VITAL SIGNS: Today, his pulse is 97 and regular, blood pressure is 130/70. He is afebrile. He weighs 91.8 kg. NECK: Supple. He has no jugular distention or hepatojugular reflux. Carotids are full. LUNGS: Respirations are unlabored. His chest has a few crackles at the right base, but is otherwise clear. He has no presacral edema or chest wall tenderness. HEART: Has a regular rhythm with an S4 gallop. I did not hear an S3 or significant murmur. ABDOMEN: Soft and normally active. EXTREMITIES: Showed no edema. IMPRESSION: 1. Recent myocardial infarction. 2. Ischemic cardiomyopathy with ejection fraction of about 45%. 3. Acute on chronic systolic congestive heart failure. 4. Type 2 diabetes mellitus. 5. Chronic renal insufficiency. 6. Chronic obstructive pulmonary disease. 7. Essential hypertension. PLAN: We will continue his current medical regimen. He has not had any further episodes of nonsustained ventricular tachycardia since he was diuresed. I think that the episode we did see was likely due to hypoxemia and this has since resolved. He will be discharged to home, hopefully today, and followed up in the office for further management of his heart failure. I thank the hospitalist physicians for asking our advice regarding his care. [place], [place] PROGRESS NOTE NAME: DARRIN CUELLAR UNIT #: [id number] ROOM: 502 DOCTOR: MARLENY ALTMAN MD BIRTHDATE: [birth year] MARLENY ALTMAN MD CM:PNTRANS [id number] MARLENY ALTMAN MD 05/12/18 1513 interface
--- NOTE | ~2018-05-08 | PR ---
[place], [place] PROGRESS NOTE NAME: DARRIN CUELLAR [facility] #: [id number] UNIT #: [id number] ROOM: [facility] DOCTOR: LEDA JAEGER MD,JOSE J BIRTHDATE: [birth year] DOS: 05/09/2018 PULMONARY PROGRESS NOTE SUBJECTIVE: The patient was noted comfortable at this time, resting in the bed with reduction in symptoms of shortness of breath. Denies symptoms of chest pain. Cough has been noted without any sputum expectoration. Denies symptoms of fever or chills. Denies symptoms of nausea, vomiting or diarrhea. Denies abdominal pain. The patient has been continued on the diuretic therapy as well. Negative fluid balance of about 1500 mL was noted. He denies symptoms of chest pain, fever or chills. Denies symptoms of hemoptysis. The patient does not have any symptoms of edema in the lower extremity. Denies skin rashes. Remaining systems were reviewed. They were noted all negative. PHYSICAL EXAMINATION: VITAL SIGNS: For the patient in the last 24 hours, normal temperature recorded, respiratory rate ranged between 16-22, heart rate 86-103, blood pressure 155/88-140/80. Pulse oxygen saturation recorded as 96% on 2 liters nasal cannula. HEENT: Head was atraumatic. Eyes nonicterus. NECK: Supple. CARDIOVASCULAR: S1, S2 audible. LUNGS: Noted decreased breath sounds in the lower portion of the lungs bilaterally. ABDOMEN: Soft, nontender. Bowel sounds present. EXTREMITIES: The patient was noted without any acute edema. VISIBLE SKIN: No lesions or rashes. MUSCULOSKELETAL: Noted without any acute deformities. CENTRAL NERVOUS SYSTEM: Cranial nerves 2-12 intact. No focal deficit. LABORATORY DATA: The BMP that was done this morning; glucose 163, BUN 56, creatinine 2.23. Remaining electrolytes grossly normal. CBC this morning; normal WBC count, hemoglobin 12.2, platelet count was normal. IMPRESSION: 1. The patient with moderate pleural fluid with ongoing acute congestive heart failure was also noted. 2. Acute kidney injury with elevation of creatinine secondary to congestive heart failure, diastolic dysfunction combination. 3. The patient with chronic obstructive pulmonary disease - remains stable. PLAN OF TREATMENT: Continue with the BiPAP, oxygen supplementation, bronchodilators. Ultrasound of the chest was performed at the bedside. Moderate size of pleural fluid was confirmed to be present bilaterally. Continue diuretic therapy if the kidney function continue to deteriorate. The patient might require thoracentesis to be done at the bedside for further assessment with monitoring pleural fluid will be continued. Other therapy, plan of management, care plan. Usual care. Supportive therapy, plan of management, treatment and plan of management. [place], [place] PROGRESS NOTE NAME: [facility]AR [id number] UN[facility] #: [id number] ROOM: [facility] DOCTOR: JOSE J GUERRERO MD BIRTHDATE: [birth year] JOSE J TOMPKINS MD CM:PNKAYE [id number] JOSE J JAEGER MD 05/09/18 0451 interface
--- NOTE | ~2018-05-08 | PROC NOTE ---
[place], [place] PROCEDURE NOTE NAME: [id number] #: [id number] ROOM: [facility] DOCTOR: LEDA JAEGER MD,JOSE J BIRTHDATE: [birth year] DOS: 05/11/2018 PROCEDURE: LEFT-SIDED THORACENTESIS PREOPERATIVE DIAGNOSIS: Persistent moderate pleural fluid left side, thoracentesis without any complication, on the left side with removal of 633 mL of pleural fluid. PROCEDURE DESCRIPTION: Informed consent obtained with the patient. The patient was placed in sitting position. The site of thoracentesis procedure mid chest wall was already marked thoracentesis. Skin was cleaned with chlorhexidine solution. 1% lidocaine was administered in the skin intercostal space. During admission of local anesthetic, the left pleural space was entered. A small amount of fluid was aspirated. After that small incision given in the skin. [place] thoracentesis catheter introduced through the incision into the left pleural space. A total of 633 mL of pleural fluid was removed, which was sent for all the appropriate testing. The procedure well tolerated without any complication ____ at the bedside. Chest x-ray was done after completion of the thoracentesis which shows marked improvement in aeration of the lung with complete resolution of the left pleural fluid with the aeration of the lung improved as well as small area of atelectasis and remaining minimal left pleural fluid cannot be excluded. There was no pneumothorax. JOSE J TOMPKINS MD CM:PROCNOTE:PROCEDURE NOTE 1240 1343 JOSE J JAEGER MD
--- NOTE | ~2018-05-08 | PR ---
[place], [place] PROGRESS NOTE NAME: DARRIN CUELLAR UNIT #: [id number] ROOM: 502 DOCTOR: JOSE J GUERRERO MD BIRTHDATE: [birth year] DOS: 05/12/2018 SUBJECTIVE: The patient noted comfortable at this time, resting in the bed without any acute distress. Thoracentesis was completed yesterday without difficulty. The patient has been noted marked improvement in resolution of symptoms of shortness of breath after the bilateral thoracentesis. He has not been reported any symptoms of fever or chills. Denies symptoms of any cough this morning. There were no symptoms of wheezing. OBJECTIVE: VITAL SIGNS: For the patient, which was recorded shows temperature noted as normal. The respiratory rate recorded as 20, heart rate 97, blood pressure 130/70. The pulse oxygen saturation on 2 liters nasal cannula 97% saturation. HEAD, EYES, EARS, NOSE, AND THROAT: Examination shows head was atraumatic. Eyes nonicterus. NECK: Supple. CARDIOVASCULAR SYSTEM: S1, S2 is audible. LUNGS: Noted without any wheezing or crackles at the present time. ABDOMEN: Soft, nontender. Bowel sounds present. EXTREMITIES: Without any acute edema. LABORATORY DATA: Pleural fluid analysis, right pleural fluid 88. WBC, 56 lymphocytes. The fluid was noted consistent with a transudative effusion with a pH of 7.46. The left pleural fluid was also noted with transudative effusion. IMPRESSION: Bilateral pleural fluid secondary to congestive heart failure as a transudative effusion with marked improvement noted aeration of the lung as well. Acute kidney injury was resolving as well with current BUN 57, creatinine 1.91. PLAN OF MANAGEMENT: Consider discharge whenever desired from the pulmonary standpoint. Continue other therapy, plan of management. Outpatient assessment will be done post-discharge of the hospital. [place], [place] PROGRESS NOTE NAME: DARRIN CUELLAR UNIT #: [id number] ROOM: 502 DOCTOR: JOSE J GUERRERO MD BIRTHDATE: [birth year] JOSE J TOMPKINS MD CM:PNTRANS [id number] JOSE J JAEGER MD 05/12/18 1230 interface
[~2018-05-08 03:20] MED LIST changes: +ISOSORBIDE30 MG PO; +KLOR-CON M1010 ME1 PO; +LASIX20 MG PO; +LEVOTHYROXINE200 MC2 PO; +LIPITOR40 MG PO; +METOPROLOL SUCC50 M1 PO; +MUCINEX ER600 MG PO; +TOPROL XL50 M1 PO; +VISTARIL25 MG PO
[2018-05-08 04:04] LABS: INTERNATIONAL NORM RATIO 1.1 (2.0-3.5)
[2018-05-08 04:19] LABS: ALBUMIN 2.2 gm/dl (3.1-4.5); CREATININE 1.98 mg/dL (0.70-1.30); TOTAL PROTEIN 6.9 gm/dL (6.4-8.2)
[2018-05-08 04:37] LABS: TROPONIN I 0.094 ng/ml (<0.045)
[2018-05-08 04:54] LABS: BASO # 0.1 10*3/uL (0.0-0.1); BASO % 0.6 % (0.0-1.0); EOS # 0.1 10*3/uL (0.0-0.4); HEMATOCRIT 42.8 % (42.0-52.0); HEMOGLOBIN 13.8 g/dl (14.0-18.0); LYMPH # 1.3 10*3/uL (1.3-4.4); LYMPH % 12.1 % (27.0-41.0); MEAN CELL VOLUME 89.7 fl (80.0-94.0); MEAN CORPUSCULAR HGB 28.9 pg (27.0-31.0); MEAN CORPUSCULAR HGB CONC 32.2 g/dl (33.0-37.0); MEAN PLATELET VOLUME 10.2 fl (9.6-12.3); MONO # 0.7 10*3/uL (0.1-1.0); MONO % 6.3 % (3.0-9.0); NEUT # 8.1 10*3/uL (2.3-7.9); NEUT % 79.1 % (47.0-73.0); PLATELET COUNT AUTOMATED 254 10*3/uL (130-400); RED BLOOD COUNT 4.77 10*6/uL (4.50-5.90); RED CELL DISTRI WIDTH 14.5 % (0-14.5); WHITE BLOOD COUNT 10.3 10*3/uL (4.8-10.8)
[2018-05-08 05:39] LABS: ABG BASE EXCESS -6.1 mmol/L (-2.0-2.0); ABG HCO3 17.2 mmol/l (22-26); ABG O2 SATURATION 95.6 % (95-97); ARTERIAL BLOOD GAS PCO2 29.3 mmHg (35-45); ARTERIAL BLOOD GAS PH 7.387 (7.35-7.45); ARTERIAL BLOOD GAS PO2 80.4 mmHg (80-90)
[2018-05-08] MEDS ORDERED: LASIX20 MG PO (10:39)
[2018-05-08] MEDS ORDERED: TOPROL XL50 M1 PO (10:40)
[2018-05-08] MEDS ORDERED: KLOR-CON 1010 ME1 PO (10:42)
[2018-05-08] MEDS ORDERED: OMEPRAZOLE40 MG PO (10:45)
[2018-05-08] MEDS ORDERED: VITAMIN D-32000 UNI1 PO (10:54)
[2018-05-09] VITALS: BP 152/89
[2018-05-09 00:19] LABS: BILIRUBIN NEGATIVE (NEGATIVE); BLOOD TRACE-LYSED (NEGATIVE); CLARITY CLOUDY (CLEAR); COLOR YELLOW (YELLOW); GLUCOSE 1+ (NEGATIVE); KETONE NEGATIVE (NEGATIVE); LEUKO ESTERASE 1+ (NEGATIVE); NITRITE NEGATIVE (NEGATIVE); SPECIFIC GRAVITY 1.025 (1.005-1.030); UROBILINOGEN 0.2 E.U./dl (0.2-1.0)
[2018-05-09 00:26] LABS: WBC TNTC wbc/hpf (0-5); YEAST 3+
[2018-05-09 00:28] LABS: BACTERIA 2+
[2018-05-09 04:00] VITALS: BP 149/92
[2018-05-09 05:09] LABS: BASO % 0.1 % (0.0-1.0); HEMATOCRIT 38.5 % (42.0-52.0); HEMOGLOBIN 12.2 g/dl (14.0-18.0); LYMPH # 0.5 10*3/uL (1.3-4.4); LYMPH % 5.8 % (27.0-41.0); MEAN CELL VOLUME 89.7 fl (80.0-94.0); MEAN CORPUSCULAR HGB 28.4 pg (27.0-31.0); MEAN CORPUSCULAR HGB CONC 31.7 g/dl (33.0-37.0); MEAN PLATELET VOLUME 10.2 fl (9.6-12.3); MONO # 0.5 10*3/uL (0.1-1.0); MONO % 5.6 % (3.0-9.0); NEUT # 7.8 10*3/uL (2.3-7.9); NEUT % 88.1 % (47.0-73.0); PLATELET COUNT AUTOMATED 247 10*3/uL (130-400); RED BLOOD COUNT 4.29 10*6/uL (4.50-5.90); RED CELL DISTRI WIDTH 14.5 % (0-14.5); WHITE BLOOD COUNT 8.9 10*3/uL (4.8-10.8)
[2018-05-09 05:25] LABS: CREATININE 2.23 mg/dL (0.70-1.30); PHOSPHOROUS 3.3 mg/dL (2.5-4.9); POTASSIUM 3.8 mmol/L (3.5-5.1)
[2018-05-09 08:00] VITALS: BP 140/80
[2018-05-09 12:00] VITALS: BP 125/48
[2018-05-09 15:35] VITALS: BP 142/80
[2018-05-09 20:00] VITALS: BP 131/77
[2018-05-10] VITALS: BP 140/84
[2018-05-10 04:00] VITALS: BP 130/70
[2018-05-10 05:29] LABS: CREATININE 2.36 mg/dL (0.70-1.30); PHOSPHOROUS 3.6 mg/dL (2.5-4.9); POTASSIUM 3.8 mmol/L (3.5-5.1)
[2018-05-10 05:31] LABS: TROPONIN I 0.071 ng/ml (<0.045)
[2018-05-10 08:00] VITALS: BP 130/90
[2018-05-10 11:06] LABS: CREATININE,URINE 44.2 mg/dL (Not Estab.); MICRO ALBUMIN/CRE RATIO 2882.6 (0.0-30.0)
[2018-05-10 11:50] VITALS: BP 145/77
[2018-05-10 16:00] VITALS: BP 145/77
[2018-05-10 20:00] VITALS: BP 137/83
[2018-05-11] VITALS: BP 136/74
[2018-05-11 04:00] VITALS: BP 130/70
[2018-05-11 05:04] LABS: CREATININE 2.25 mg/dL (0.70-1.30); POTASSIUM 3.7 mmol/L (3.5-5.1)
[2018-05-11 06:12] LABS: BASO # 0.1 10*3/uL (0.0-0.1); BASO % 0.7 % (0.0-1.0); EOS # 0.2 10*3/uL (0.0-0.4); EOS % 2.5 % (1.0-4.0); HEMATOCRIT 38.9 % (42.0-52.0); HEMOGLOBIN 12.1 g/dl (14.0-18.0); LYMPH # 1.3 10*3/uL (1.3-4.4); LYMPH % 16.2 % (27.0-41.0); MEAN CELL VOLUME 90.7 fl (80.0-94.0); MEAN CORPUSCULAR HGB 28.2 pg (27.0-31.0); MEAN CORPUSCULAR HGB CONC 31.1 g/dl (33.0-37.0); MEAN PLATELET VOLUME 10.4 fl (9.6-12.3); MONO # 0.5 10*3/uL (0.1-1.0); MONO % 6.7 % (3.0-9.0); NEUT # 5.9 10*3/uL (2.3-7.9); NEUT % 73.4 % (47.0-73.0); PLATELET COUNT AUTOMATED 247 10*3/uL (130-400); RED BLOOD COUNT 4.29 10*6/uL (4.50-5.90); RED CELL DISTRI WIDTH 14.6 % (0-14.5); WHITE BLOOD COUNT 8.1 10*3/uL (4.8-10.8)
[2018-05-11 08:00] VITALS: BP 134/60
[2018-05-11 10:42] LABS: BODY FLUID WBC 65 /uL
[2018-05-11 10:44] LABS: BODY FLUID WBC 88 /uL
[2018-05-11 11:24] LABS: BF LYMPHOCYTES 72 %; BF MACROPHAGES 18 %; BF MESOTHELIALS 2 %; BF NEUTROPHILS 8 %
[2018-05-11 11:27] LABS: BF LYMPHOCYTES 56 %; BF MACROPHAGES 20 %; BF MESOTHELIALS 7 %; BF NEUTROPHILS 16 %
[2018-05-11 12:00] VITALS: BP 103/68
[2018-05-11 16:00] VITALS: BP 139/74
[2018-05-11 20:00] VITALS: BP 134/70
[2018-05-12] VITALS: BP 136/75
[2018-05-12 07:09] LABS: BASO # 0.1 10*3/uL (0.0-0.1); BASO % 0.7 % (0.0-1.0); EOS # 0.3 10*3/uL (0.0-0.4); EOS % 3.5 % (1.0-4.0); HEMATOCRIT 36.8 % (42.0-52.0); HEMOGLOBIN 11.9 g/dl (14.0-18.0); LYMPH # 1.4 10*3/uL (1.3-4.4); LYMPH % 18.7 % (27.0-41.0); MEAN CELL VOLUME 89.1 fl (80.0-94.0); MEAN CORPUSCULAR HGB 28.8 pg (27.0-31.0); MEAN CORPUSCULAR HGB CONC 32.3 g/dl (33.0-37.0); MEAN PLATELET VOLUME 10.5 fl (9.6-12.3); MONO # 0.5 10*3/uL (0.1-1.0); MONO % 7.1 % (3.0-9.0); NEUT # 5.1 10*3/uL (2.3-7.9); NEUT % 69.2 % (47.0-73.0); PLATELET COUNT AUTOMATED 212 10*3/uL (130-400); RED BLOOD COUNT 4.13 10*6/uL (4.50-5.90); RED CELL DISTRI WIDTH 14.5 % (0-14.5); WHITE BLOOD COUNT 7.4 10*3/uL (4.8-10.8)
[2018-05-12 07:38] LABS: ALBUMIN 2.1 gm/dl (3.1-4.5); CREATININE 1.91 mg/dL (0.70-1.30); POTASSIUM 3.4 mmol/L (3.5-5.1); TOTAL PROTEIN 5.5 gm/dL (6.4-8.2)
[2018-05-12 08:00] VITALS: BP 130/70
[2018-05-12 12:00] VITALS: BP 118/84
[2018-05-12] MEDS ORDERED: POTASSIUM CHLO20 MEQ PO (13:53)
[2018-05-12] MEDS ORDERED: FUROSEMIDE40 MG PO (13:53)
[2018-05-12 16:00] VITALS: BP 119/73
== END 2018-05-12 18:44 | disposition home health service (06) | DRG 291 ==
LOC: ED 03:20 → ICCU 05:15 → EDHOLD 05:15 → ICCU 05:18 → 5E 05-11 14:26
PROVIDERS: Emergency Medicine; Family Medicine; Internal Medicine; Internal Medicine Nephrology; Student in an Organized Health Care Education/Training Program
PROC: 5A09357 Assistance with Respiratory Ventilation, Less than 24 Consecutive Hours, Continuous Positive Airway Pressure (ICD-10-PCS; 2018-05-08)
PROC: 5A09357 Assistance with Respiratory Ventilation, Less than 24 Consecutive Hours, Continuous Positive Airway Pressure (ICD-10-PCS; 2018-05-09)
PROC: 0W9B3ZZ Drainage of Left Pleural Cavity, Percutaneous Approach (ICD-10-PCS; principal; 2018-05-11)
PROC: 0W993ZZ Drainage of Right Pleural Cavity, Percutaneous Approach (ICD-10-PCS; 2018-05-11)
PROC: 5A09357 Assistance with Respiratory Ventilation, Less than 24 Consecutive Hours, Continuous Positive Airway Pressure (ICD-10-PCS; 2018-05-11)
DX: I13.0 Hypertensive heart and chronic kidney disease with heart failure and stage 1 through stage 4 chronic kidney disease, or unspecified chronic kidney disease (principal); I50.43 Acute on chronic combined systolic (congestive) and diastolic (congestive) heart failure; J96.01 Acute respiratory failure with hypoxia; E43 Unspecified severe protein-calorie malnutrition; J90 Pleural effusion, not elsewhere classified; I24.8 Other forms of acute ischemic heart disease; N17.9 Acute kidney failure, unspecified; I47.2 Ventricular tachycardia; E87.0 Hyperosmolality and hypernatremia; E87.6 Hypokalemia; N40.0 Benign prostatic hyperplasia without lower urinary tract symptoms; N18.3 Chronic kidney disease, stage 3 (moderate); F17.210 Nicotine dependence, cigarettes, uncomplicated; I25.5 Ischemic cardiomyopathy; D64.9 Anemia, unspecified; E87.8 Other disorders of electrolyte and fluid balance, not elsewhere classified; E55.9 Vitamin D deficiency, unspecified; E11.65 Type 2 diabetes mellitus with hyperglycemia; R74.0 Nonspecific elevation of levels of transaminase and lactic acid dehydrogenase [LDH]; E66.3 Overweight; F41.9 Anxiety disorder, unspecified; I25.10 Atherosclerotic heart disease of native coronary artery without angina pectoris; K21.9 Gastro-esophageal reflux disease without esophagitis; E11.22 Type 2 diabetes mellitus with diabetic chronic kidney disease; E78.5 Hyperlipidemia, unspecified; Z96.1 Presence of intraocular lens; J44.9 Chronic obstructive pulmonary disease, unspecified; I25.2 Old myocardial infarction; Z87.01 Personal history of pneumonia (recurrent); Z88.8 Allergy status to other drugs, medicaments and biological substances; Z87.11 Personal history of peptic ulcer disease; Z98.42 Cataract extraction status, left eye; Z98.41 Cataract extraction status, right eye; Z82.49 Family history of ischemic heart disease and other diseases of the circulatory system; Z79.899 Other long term (current) drug therapy; Z86.19 Personal history of other infectious and parasitic diseases; Z85.068 Personal history of other malignant neoplasm of small intestine; Z79.82 Long term (current) use of aspirin; Z68.25 Body mass index [BMI] 25.0-25.9, adult

== ENCOUNTER 2018-06-01 | Inpatient (IN) | payer OTHER ==
[~2018-06-01] MED LIST changes: +KLOR-CON 1010 ME1 PO; +MULTIVITAMINS1 EAC6 PO; -MULTIVITAMINS1 EACH PO; +OMEPRAZOLE40 MG PO; +POTASSIUM CHLO20 MEQ PO; +VITAMIN D-32000 UNI1 PO
--- NOTE | ~2018-06-01 | EKG ---
[place], [place] ELECTROCARDIOGRAM REPORT NAME: DARRIN CUELLAR UNIT #: [id number] ROOM: 507 DOCTOR: CHRIS DRAFT REPORT BIRTHDATE: [birth year] [facility] Test Date: 2018-06-01 Test Time: 20:40:29 Pat Name: DARRIN CUELLAR Department: ER Room: 507 Gender: M [employer] Gran[employer] Polisher: EKG.ND : 1935 Requested By: JENNIFER MALIN Order Number: [id number] Reading MD: Conrad Hunt MD Measurements Intervals [place] Rate: 72 P: 27 ID: [id number] QRS: -36 QRSD: 105 T: 153 QT: 473 QTc: 518 Interpretive Statements Sinus rhythm Atrial premature complex Left axis deviation Anterolateral infarct, age indeterminate Abnormal T, consider ischemia, lateral leads Atrial premature complex(es) now present Left-axis deviation now present T-wave abnormality now present Possible ischemia now present Prolonged QT interval now present Sinus tachycardia no longer present Myocardial infarct finding still present Electronically Signed On 06-03-2018 10:47:05 PST by Conrad Hunt MD CM:EKGRPT:ELECTROCARDIOGRAM REPORT [id number] JENNIFER MORALES DRAFT REPORT JENNIFER MALIN DO
[2018-06-01 20:22] VITALS: BP 158/87
[2018-06-01 20:58] LABS: BASO % 0.5 % (0.0-1.0); EOS # 0.1 10*3/uL (0.0-0.4); EOS % 1.4 % (1.0-4.0); HEMATOCRIT 43.4 % (42.0-52.0); HEMOGLOBIN 13.9 g/dl (14.0-18.0); LYMPH # 1.3 10*3/uL (1.3-4.4); LYMPH % 20.3 % (27.0-41.0); MEAN CELL VOLUME 88.2 fl (80.0-94.0); MEAN CORPUSCULAR HGB 28.3 pg (27.0-31.0); MEAN PLATELET VOLUME 10.2 fl (9.6-12.3); MONO # 0.6 10*3/uL (0.1-1.0); MONO % 8.4 % (3.0-9.0); NEUT # 4.5 10*3/uL (2.3-7.9); NEUT % 68.9 % (47.0-73.0); PLATELET COUNT AUTOMATED 178 10*3/uL (130-400); RED BLOOD COUNT 4.92 10*6/uL (4.50-5.90); RED CELL DISTRI WIDTH 15.3 % (0-14.5); WHITE BLOOD COUNT 6.6 10*3/uL (4.8-10.8)
[2018-06-01 21:09] LABS: ACT PARTIAL THROMBO TIME 27.5 SECONDS (20.8-31.5)
[2018-06-01 21:14] LABS: ALBUMIN 2.8 gm/dl (3.1-4.5); CREATININE 1.92 mg/dL (0.70-1.30); POTASSIUM 3.5 mmol/L (3.5-5.1); TOTAL PROTEIN 6.7 gm/dL (6.4-8.2)
[2018-06-01 21:15] LABS: TROPONIN I 0.028 ng/ml (<0.045)
--- NOTE | 2018-06-02 00:11 | NUR ---
PATIENT REFUSING TO LET RN LOOK AT FEET FOR WOUNDS AND REFUSING TO TAKE PANTS OFF AT THIS TIME. PATIENT DOES HAVE A GOWN. PER PATIENT "I AM GOOD" WHEN ASKED ABOUT WOUNDS.
[2018-06-02 00:15] VITALS: BP 162/86
[2018-06-02 00:27] VITALS: BP 164/82
--- NOTE | 2018-06-02 01:11 | NUR ---
DR NAVAS NOTIFIED MED REC UP TO DATE VIA MEDICATION CLAIM HISTORY D/T PATIENT NOT KNOWING HOME MEDS AND NO LIST AVAILABLE. PER DR NAVAS CALL PHARMACY IN THE MORNING TO VERIFY MEDICATIONS.
--- NOTE | 2018-06-02 06:03 | NUR ---
DR GRANT NOTIFIED OF CONSULT. SHE WILL SEE PATIENT TODAY. NO FURTHER ORDERS AT THIS TIME.
[2018-06-02 06:30] LABS: BASO % 0.7 % (0.0-1.0); EOS # 0.1 10*3/uL (0.0-0.4); EOS % 2.5 % (1.0-4.0); HEMATOCRIT 43.7 % (42.0-52.0); HEMOGLOBIN 14.1 g/dl (14.0-18.0); LYMPH # 1.7 10*3/uL (1.3-4.4); LYMPH % 30.3 % (27.0-41.0); MEAN CELL VOLUME 87.6 fl (80.0-94.0); MEAN CORPUSCULAR HGB 28.3 pg (27.0-31.0); MEAN CORPUSCULAR HGB CONC 32.3 g/dl (33.0-37.0); MEAN PLATELET VOLUME 10.3 fl (9.6-12.3); MONO # 0.5 10*3/uL (0.1-1.0); NEUT # 3.2 10*3/uL (2.3-7.9); NEUT % 57.1 % (47.0-73.0); PLATELET COUNT AUTOMATED 172 10*3/uL (130-400); RED BLOOD COUNT 4.99 10*6/uL (4.50-5.90); RED CELL DISTRI WIDTH 15.5 % (0-14.5); WHITE BLOOD COUNT 5.7 10*3/uL (4.8-10.8)
[2018-06-02 06:58] LABS: ALBUMIN 2.9 gm/dl (3.1-4.5); CREATININE 1.94 mg/dL (0.70-1.30); FREE T4 1.34 ng/dl (0.76-1.46); PHOSPHOROUS 3.3 mg/dL (2.5-4.9); POTASSIUM 3.1 mmol/L (3.5-5.1); TOTAL PROTEIN 6.6 gm/dL (6.4-8.2)
--- NOTE | 2018-06-02 07:00 | NUR ---
PT AWAKE. BEDSIDE REPORT RECEIVED FROM CB PERALTA. NO PT QUESTIONS/CONCERNS AT THIS TIME. BED LOW
[2018-06-02 07:02] LABS: THYROID STIM HORMONE (HS) 0.576 uIU/ml (0.358-4.75)
--- NOTE | 2018-06-02 07:47 | NUR ---
24 HR CHART CHECK COMPLETE
[2018-06-02 08:00] VITALS: BP 122/80
--- NOTE | 2018-06-02 10:55 | NUR ---
[place] Installation Helper in to talk to patient. Patient states lives at HOME with AND SON. There are 3 steps in the home. Physician: SUAD Pharmacy: [facility] Home health services: [facility] Patient's level of ADLs: MODERATE ASSIST Patient has working utilities: YES DME: [facility] Follow-up physician's appointment after d/c: WILL BE MADE BY HOSPTIALIST NURSE DIRECTOR ON DISCHARGE Does patient want to access PORTAL?: NO Discharge plan PT STATES HE LIVES AT HOME WITH AND SON. STATES SOMETIMNES USES A CANE AT HOME. PT HAS [facility] AND WANTS TO RESUME THEM WHEN DISCHARGED. WILL CONTINUE TO FOLLOW. . KRISTIN REYNOLDS
[2018-06-02 12:00] VITALS: BP 136/73
--- NOTE | 2018-06-02 14:40 | NUR ---
Occupational Therapy evaluation completed on 5th floor with full eval to follow. Precautions: impulsive, SOB, O2, Iv site. Recommend: OT home health. Low complexity level. WOrk on building endurance, energy conservation tasks, and dynamic standing balance during ADLs. Thank you for this referral, Aissatou Roman OTR/L
--- NOTE | 2018-06-02 14:58 | NUR ---
PHYSICAL THERAPY PAtient evaluated on 5, full evaluation to follow. Continue with PT as per plan of care with fall, 02 an acute debility precautions. Home with family (a) AND HOME HEALTH RN AND PT RECOMMENDED. PATIENT IS MODERATE COMPLEXITY VIA CHART REVIEW, TESTS AND EVALUATION: [id number]. THANK YOU FOR THIS REFERRAL. CATHY BUTLER,PT
[2018-06-02 16:00] VITALS: BP 128/64
[2018-06-02 20:00] VITALS: BP 155/67
--- NOTE | 2018-06-02 23:08 | NUR ---
PATIENT RESTING IN BED RECIEVING BREATHING TREATMENT. DENIES ANY NEEDS OR COMPLAINTS. BED IS IN LOWEST POSITION WITH WHEELS LOCKED. CALL LIGHT IS WITHIN REACH. ENCOURAGED TO USE CALL LIGHT FOR NEEDS. WILL MONITOR.
[2018-06-03] VITALS: BP 138/70
[2018-06-03 07:02] LABS: BASO # 0.1 10*3/uL (0.0-0.1); EOS # 0.1 10*3/uL (0.0-0.4); EOS % 2.6 % (1.0-4.0); HEMATOCRIT 40.4 % (42.0-52.0); HEMOGLOBIN 13.2 g/dl (14.0-18.0); LYMPH # 1.5 10*3/uL (1.3-4.4); LYMPH % 30.1 % (27.0-41.0); MEAN CELL VOLUME 87.4 fl (80.0-94.0); MEAN CORPUSCULAR HGB 28.6 pg (27.0-31.0); MEAN CORPUSCULAR HGB CONC 32.7 g/dl (33.0-37.0); MEAN PLATELET VOLUME 9.7 fl (9.6-12.3); MONO # 0.6 10*3/uL (0.1-1.0); MONO % 11.8 % (3.0-9.0); NEUT # 2.7 10*3/uL (2.3-7.9); NEUT % 54.1 % (47.0-73.0); PLATELET COUNT AUTOMATED 155 10*3/uL (130-400); RED BLOOD COUNT 4.62 10*6/uL (4.50-5.90); RED CELL DISTRI WIDTH 15.7 % (0-14.5)
[2018-06-03 07:20] LABS: POTASSIUM 3.4 mmol/L (3.5-5.1)
[2018-06-03 07:21] LABS: CREATININE 2.1 mg/dL (0.70-1.30); PHOSPHOROUS 3.6 mg/dL (2.5-4.9)
[2018-06-03 08:00] VITALS: BP 140/70
--- NOTE | 2018-06-03 08:23 | NUR ---
PHYSICAL THERAPY Patient presented to therapy in supine with head of bed elevated and report of feeling much better. Patient is on 2 liters of spO2 VIA NASAL CANULA. Patient agrees to therapy session. Patient was identified by name and . Patient performed supine to sitting at EOB transfer with SBA. Patient performed gait with Standard Cane and NO spO2 for 160' x 1 with Close Supervision with O2 SAT not dropping below 90%. Patient did not require any rest breaks during gait. Patient's O2 SAT increased and recovered to 95% within 1 minute and then continued to increased to 96% on 2 liters of spO2 via nasal canula. Patient was left in sitting position on EOB with tray table in front of him and breakfast. Patient's call light was within reach. Patient is recommended to home with HH PT upon discharge. NOHEMY OLSON CURRICULUM AND INSTRUCTION SPECIALIST
--- NOTE | 2018-06-03 08:59 | NUR ---
BLACK LEATHER TRIMMER REMOVED PER ORDER.
--- NOTE | 2018-06-03 09:00 | NUR ---
PT UP WALKING HALLS WITH PHYSICAL THERAPY.
--- NOTE | 2018-06-03 10:32 | NUR ---
Patient requesting [facility] upon discharge. Received order, faxed referral. Will notify [facility] upon discharge.
[2018-06-03 12:00] VITALS: BP 117/68
--- NOTE | 2018-06-03 13:05 | NUR ---
OT NOTE Pt was seen this P.M. 1:1 for 15 minute OT session. Upon arrival pt was sitting upright on the EOB. Pt identified by name and and had no complaints at this time. Pt completed functional mobility around the room with SBA and use of cane. No LOB occured and pt's SpO2 was WFL throughout. Pt completed LB dressing with supervision. Pt was then left sitting upright on the EOB with call light in hand, tray table in place, and phone in reach. Continue with rec D/C plan to SNF. ERIC Farmer/Pete
--- NOTE | 2018-06-03 16:49 | NUR ---
Discharge instructions reviewed with patient/family. Patient receptive and verbalizes understanding. Follow-up care arranged. Written instructions given to patient/family. IV site removed. Pt transported to [facility] via wheelchair. Stressed importance of lasix compliance and follow up appointments. PAUL SMITH
--- NOTE | 2018-06-06 07:00 | NUR ---
PHYSICAL THERAPY CO-SIGN I approve of the Phyical Therapy notes written above. CATHY BUTLER PT
--- NOTE | 2018-06-06 08:18 | NUR ---
OCCUPATIONAL THERAPY CO-SIGN I approve of the Occupational Therapy notes written above. TYRONE WASHINGTON OTR/Pete
[2018-08-14] MEDS ORDERED: TOPROL XL50 M1 PO (17:29)
[2018-08-14] MEDS ORDERED: APRESOLINE25 MG PO (17:29)
[2018-08-14] MEDS ORDERED: Isordil20 MG PO (17:29)
[2018-08-25] MEDS ORDERED: Lantus SC (12:50)
[2018-08-25] MEDS ORDERED: Humalog SQ (12:50)
[2018-08-25] MEDS ORDERED: Ipratropium Brom3 ML NEB (12:50)
[2018-08-25] MEDS ORDERED: METOPROLOL SUC100 M1 PO (12:50)
[2018-08-25] MEDS ORDERED: VITAMIN D32000 UNI1 PO (12:50)
[2018-08-25] MEDS ORDERED: VISTARIL25 MG PO (12:50)
[2018-08-25] MEDS ORDERED: IMDUR SA30 MG PO (12:50)
[2018-09-17] MEDS ORDERED: LIPITOR40 MG PO (11:44)
[2018-09-17] MEDS ORDERED: TEST STRIPS1 EACH MC (11:44)
[2018-09-17] MEDS ORDERED: VISTARIL25 MG PO (11:44)
[2018-09-17] MEDS ORDERED: Humalog SQ (11:44)
[2018-09-17] MEDS ORDERED: FLONASE ALLERG9.9 ML NAS (11:44)
[2018-09-17] MEDS ORDERED: ACCU-CHEK FAST1 EACH MC (11:44)
[2018-09-17] MEDS ORDERED: MULTIVITAMINS1 EAC6 PO (11:44)
[2018-09-17] MEDS ORDERED: POTASSIUM CHLO10 ME5 PO (11:44)
[2018-09-17] MEDS ORDERED: VITAMIN D32000 UNI1 PO (11:44)
[2018-09-17] MEDS ORDERED: OMEPRAZOLE40 MG PO (11:44)
[2018-09-17] MEDS ORDERED: PEN NEEDLE1 EAC1 MC (11:44)
[2018-09-17] MEDS ORDERED: SYMB160 INH (11:44)
[2018-09-17] MEDS ORDERED: SALINE NOSE SPR45 ML NAS (11:44)
[2018-09-17] MEDS ORDERED: Ipratropium Brom3 ML NEB (11:44)
[2018-09-17] MEDS ORDERED: LANTUS SOL100 UNIT/1 SQ (11:44)
[2018-09-17] MEDS ORDERED: IMDUR SA30 MG PO (11:44)
[2018-09-17] MEDS ORDERED: BAYER ASPIRIN C81 MG PO (11:44)
[2018-09-17] MEDS ORDERED: APRESOLINE25 MG PO (11:44)
[2018-09-17] MEDS ORDERED: METOPROLOL SUC100 M1 PO (11:44)
[2018-09-17] MEDS ORDERED: LORATADINE10 M3 PO (11:44)
[2018-09-17] MEDS ORDERED: LEVOTHYROXINE200 MC2 PO (11:44)
[2018-09-25] MEDS ORDERED: CEPHALEXIN500 M1 PO (08:12)
== END 2018-06-03 16:49 | disposition home health service (06) | DRG 291 ==
PROVIDERS: Emergency Medicine; Family Medicine; Internal Medicine; ADMIT Internal Medicine
DX: I13.0 Hypertensive heart and chronic kidney disease with heart failure and stage 1 through stage 4 chronic kidney disease, or unspecified chronic kidney disease (principal); I50.43 Acute on chronic combined systolic (congestive) and diastolic (congestive) heart failure; J96.01 Acute respiratory failure with hypoxia; E43 Unspecified severe protein-calorie malnutrition; N18.3 Chronic kidney disease, stage 3 (moderate); E87.6 Hypokalemia; K27.9 Peptic ulcer, site unspecified, unspecified as acute or chronic, without hemorrhage or perforation; E78.5 Hyperlipidemia, unspecified; E83.51 Hypocalcemia; E11.22 Type 2 diabetes mellitus with diabetic chronic kidney disease; E66.3 Overweight; D64.9 Anemia, unspecified; E87.8 Other disorders of electrolyte and fluid balance, not elsewhere classified; F41.9 Anxiety disorder, unspecified; K21.9 Gastro-esophageal reflux disease without esophagitis; I25.10 Atherosclerotic heart disease of native coronary artery without angina pectoris; Z96.1 Presence of intraocular lens; J44.9 Chronic obstructive pulmonary disease, unspecified; T50.2X5A Adverse effect of carbonic-anhydrase inhibitors, benzothiadiazides and other diuretics, initial encounter; Z85.068 Personal history of other malignant neoplasm of small intestine; Z88.8 Allergy status to other drugs, medicaments and biological substances; Z91.018 Allergy to other foods; I25.2 Old myocardial infarction; Z98.49 Cataract extraction status, unspecified eye; Z87.891 Personal history of nicotine dependence; Z82.49 Family history of ischemic heart disease and other diseases of the circulatory system; Z79.82 Long term (current) use of aspirin; Z79.899 Other long term (current) drug therapy; Z87.01 Personal history of pneumonia (recurrent); Y92.89 Other specified places as the place of occurrence of the external cause; Z68.25 Body mass index [BMI] 25.0-25.9, adult

== ENCOUNTER 2018-07-14 02:03 | Inpatient (IN) | payer OTHER ==
[~2018-07-14] VITALS: Ht 187.9 cm; Wt 93.9 kg
[2018-07-14] VITALS (8 sets, daily range): BP systolic 128–189; BP diastolic 70–110
--- NOTE | ~2018-07-14 | CON ---
[place], [place] REPORT OF CONSULTATION NAME: DARRIN CUELLAR [facility] #: [id number] UNIT #: [id number] ROOM: [facility] DOCTOR: MARLENY ALTMAN MD BIRTHDATE: [birth year] DOS: 07/14/2018 CARDIOLOGY CONSULTATION REASON FOR CONSULTATION: Dyspnea, elevated troponin. HISTORY OF PRESENT ILLNESS: The patient is an 82-year-old man who has a history of atherosclerotic heart disease, hypertension, and type 2 diabetes mellitus, who recently suffered a non-ST elevation myocardial infarction on 04/19/2018. Catheterization demonstrated a 100% occlusion of a first diagonal with a 95% PDA lesion, both of which were treated medically. An echocardiogram shows that he has an ejection fraction between 40 and 45%. The patient states that he was doing reasonably well until the last several days. He has noticed worsening fatigue and markedly worsening dyspnea. He had a minimally productive cough. He felt hot and sweaty on occasion. He denied any chest pressure, although he did feel like he was working to breathe. Last evening, his breathing became so short that he felt that he had to come to the Emergency Room. In the Emergency Room, he was hypertensive and tachycardic. Chest x-ray showed emphysema with patchy bibasilar airspace disease consistent with bilateral lower lobe aspiration or pneumonia. His white count was mildly elevated at 10,900. In addition, his troponin levels were elevated at 0.026, then 0.338, then 0.786. Cardiology was therefore asked to see him. Overnight, he has been treated with antibiotics, and he states that his breathing has improved somewhat. PAST MEDICAL HISTORY: Includes: 1. Type 2 diabetes mellitus. 2. Essential hypertension. 3. Status post repair of an abdominal aortic aneurysm. 4. History of duodenal adenocarcinoma status-post surgery and in remission. 5. Obstructive lung disease. 6. Chronic renal insufficiency. 7. Chronic obstructive pulmonary disease. 8. Non-ST elevation myocardial infarction in 04/19/2018. 9. Cardiac catheterization in 04/20/2018, 100% occlusion of first diagonal with 95% PDA lesion. These were treated medically. 10. Echocardiogram on 04/26/2018, normal left ventricular size with distal anterior, anteroseptal, and apical akinesis. Ejection fraction 40-45% with indeterminate diastolic function, mild mitral insufficiency, mild tricuspid insufficiency, moderate elevated right ventricular systolic pressures between 50 and 55 mmHg. MEDICATIONS: Prior to admission, hydroxyzine 25 mg 2 tablets daily as needed, furosemide 40 mg twice a day, levothyroxine 200 mcg daily, potassium 20 mEq twice a day, Symbicort 2 puffs twice a day, albuterol 2 puffs every 6 hours, hydralazine 25 mg 3 times a day, glipizide 10 mg daily, aspirin 81 mg daily, isosorbide mononitrate 30 mg twice a day, atorvastatin 40 mg at bedtime, and metoprolol succinate 50 mg daily. [place], [place] REPORT OF CONSULTATION NAME: DARRIN CUELLAR UNIT #: [id number] ROOM: [facility] DOCTOR: MARLENY ALTMAN MD BIRTHDATE: [birth year] ALLERGIES: HE LISTS ALLERGIES TO LORAZEPAM, ZOLPIDEM, AND GREEN PEPPERS. REVIEW OF SYSTEMS: The patient denies diplopia or loss of vision. He denies focal weakness, but feels generally weak. He has had some chilling and some diaphoresis. He denies chest pain, but does feel pressure in his chest and dyspnea. He denies nausea or vomiting. He has had a minimally productive cough, but no blood. He denies recent weight change, denies change in bowel or bladder habits. He denies blood in his stools or urine. He denies any recent peripheral edema. He denies any skin rashes. The remainder of the review of systems is negative except as noted above. FAMILY HISTORY: Father and mother are both . His mother at age 98. There is no family history of early coronary disease. SOCIAL HISTORY: The patient was a smoker, but quit several years ago up to 3 packs a day. He does not drink alcohol or consume illicit drugs. PHYSICAL EXAMINATION: GENERAL: The patient is an elderly white male who is awake, alert and oriented. VITAL SIGNS: Pulse is 87 and regular, blood pressure is 145/76. He is afebrile. He weighs 93.9 kg and has a body mass index of 26.6. HEENT: Normocephalic and atraumatic. Extraocular muscles are intact. Sclerae are clear. Pupils equal, round, and reactive to light. The oral mucosa is moist. Tongue is midline. NECK: Supple. He has no jugular distention or hepatojugular reflux. Carotids are full. There are no bruits. LUNGS: Respirations are slightly labored at rest. He does have bibasilar crackles especially at the right base. He has no chest wall tenderness and no presacral edema. CARDIOVASCULAR: His heart has a regular rhythm. He has a fourth heart sound, but no third heart sound. He has grade 1/6 systolic ejection murmur along the left sternal border. There are no diastolic murmurs. PMI is not displaced. There is no precordial heave, lift or thrill. ABDOMEN: Soft and normally active without masses, organomegaly or bruits. EXTREMITIES: Showed no edema. Peripheral pulses are diminished, but palpable in the feet. LABORATORY DATA: I reviewed his electrocardiogram which shows sinus rhythm with poor precordial R-wave progression. There are no acute ST elevations or depressions. IMPRESSIONS: 1. Elevated troponin levels consistent with myocardial injury. It is not clear at this point if this represents demand ischemia or progression of his recent myocardial infarction. Unfortunately, at the time of his catheterization in April, he did not have any good targets for revascularization, and we likely will be treating him medically in any case. 2. Bilateral pneumonia. 3. History of coronary artery disease. [place], [place] REPORT OF CONSULTATION [facility]: [id number] #: [id number] ROOM: [facility] DOCTOR: MARLENY ALTMAN MD BIRTHDATE: [birth year] 4. Chronic obstructive pulmonary disease. 5. Essential hypertension. PLAN: We will continue to treat him medically for the time being. Management of his lung disease will be per the primary service and Pulmonary. He should continue his current cardiac medications as tolerated and we will follow along with his other caretakers. We thank the hospitalist physicians for asking our advice regarding his care. MARLENY ALTMAN MD CM:CONSTR:REPORT OF CONSULTATION 0929 07/15/18 0241 interface
--- NOTE | ~2018-07-14 | CON ---
[place], [place] REPORT OF CONSULTATION NAME: DARRIN CUELLAR [facility] #: [id number] UNIT #: [id number] ROOM: [facility] DOCTOR: JOSE J GUERRERO MD BIRTHDATE: [birth year] DOS: 07/14/2018 PULMONARY CONSULTATION, EVALUATION AND MANAGEMENT REASON FOR CONSULTATION: For the assessment of current acute pneumonia and other abnormal respiratory symptoms. HISTORY OF PRESENT ILLNESS: This is an 82-year-old white male patient who is known to me from the past with his recent appointment in the office because of inclement weather. He has been admitted to the hospital as he has been reporting symptoms of increased shortness of breath that has recently started associated with the cough. The cough has been noted whitish sputum expectoration and also complaining of wheezing and chest tightness. The patient's symptoms have been noted gradually worsened for the last couple of days, requiring assessment in the hospital Emergency Room. The patient was assessed in the Emergency Room, chest x-ray done that was reported with bilateral pneumonia/infiltration. The patient is requiring hospitalization. The patient denies symptoms of hemoptysis with current symptoms and there was no chest pain. REVIEW OF SYSTEMS: CONSTITUTIONAL: The patient was reported fever. There were no chills. General weakness and fatigue were reported. Fever documented during the current hospitalization as well. EYES: Denies any burning, discharge, redness or tenderness. EARS, NOSE, AND THROAT: Denies sore throat, hoarseness, otalgia, postnasal drainage or epistaxis. CARDIOVASCULAR: Noted with intermittent edema and cold at times. Denies any angina pain. GASTROINTESTINAL: Denies dysphagia, nausea, vomiting, diarrhea, abdominal pain, hematemesis, melena, or hematochezia. SKIN: Denies any abnormal lesions or rashes. GENITOURINARY SYMPTOMS: No dysuria, suprapubic pain or hematuria. CENTRAL NERVOUS SYSTEM: No dizziness, headache, diplopia or syncopal episodes. Remaining systems were reviewed with the patient, they were noted all negative. PAST MEDICAL HISTORY: The patient was known with history of: 1. COPD. 2. Coronary artery disease. 3. Chronic kidney disease. 4. Congestive heart failure, diastolic dysfunction. 6. Bilateral pleural fluids, required thoracentesis during his admission in 05/2018. 7. 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 8. Essential hypertension. 9. Hyperlipidemia. 10. Vitamin D deficiency. 11. Gastroesophageal reflux. 12. Chronic elevation in troponin, etiology unknown. [place], [place] REPORT OF CONSULTATION NAME: DARRIN CUELLAR UNIT #: [id number] ROOM: [facility] DOCTOR: JOSE J GUERRERO MD BIRTHDATE: [birth year] PAST SURGICAL HISTORY: 1. EGD. 2. Bilateral cataract extraction and lens implantation. 3. Abdominal aneurysm repair. 4. Cardiac catheterization. 5. Duodenectomy for the cancer management. 6. Therapeutic bronchoscopy. 7. Bilateral thoracentesis in 05/2018. SOCIAL HISTORY: The patient is , has 2 children, lives at home. Tobacco use noted at age of [age] years old, 2 packs of cigarettes until 2002. Denies history of alcohol use or illicit drug use. FAMILY HISTORY: Unknown. CURRENT MEDICATIONS: Administered use of levothyroxine, Solu-Medrol, Lipitor, hydralazine, metoprolol succinate, Imdur, aspirin, DuoNeb, Levaquin, vancomycin and IV Zosyn. DRUG ALLERGIES: Noted as allergies to: 1. ATIVAN. 2. AMBIEN. PHYSICAL EXAMINATION: GENERAL: This is an 82-year-old white male currently noted to be awake and alert without any distress this morning of assessment. Height of 6 feet 2 inches, weight of 207 pounds, BMI 26. VITAL SIGNS: Temperature 101.4 degree Fahrenheit, currently afebrile, respiratory rate of 18-35, blood pressure of 80-118 on admission, blood pressure on admission 189/110, this morning 145/76. Intake was 1100 mL and output was not documented. Pulse ox saturation on 4 liters nasal cannula 94% saturation. HEENT: Head was atraumatic. Eyes nonicterus. NECK: Supple. CARDIOVASCULAR: S1, S2 audible. LUNGS: The patient was noted with crackles were noted in the lungs, greater on the left than the right side. Wheezing was also noted as well in the lungs bilaterally. ABDOMEN: Soft, flat, nontender. EXTREMITIES: Show mild ankle edema. VISIBLE SKIN: No lesions or rashes. CENTRAL NERVOUS SYSTEM: The patient's cranial nerves 2-12 intact. LABORATORY DATA: The patient's CBC that was done yesterday, WBC count at 10.9, hemoglobin and hematocrit normal, platelet count normal at that time. The lactic acid 1.9 on 07/14/2018. The PT/PTT on 07/14/2018 noted normal. PT/INR. On 07/14/2018, this morning BMP: BUN 37, creatinine 1.93, glucose 188. Arterial blood gas, pH of 7.37, pCO2 of 29, pO2 of 67.7. Troponin minimally elevated at 0.338 and 0.786. Chest x-ray was noted with evidence of congestive heart failure finding, acute interstitial edema, small pleural fluid, possible [place], [place] REPORT OF CONSULTATION NAME: DARRIN CUELLAR UNIT #: [id number] ROOM: [facility] DOCTOR: QUIANA GUERRERO MDM BIRTHDATE: [birth year] infiltration in the lower lung would be considered as well the upper noted clear of any area of consolidation or infiltration. IMPRESSION: 1. The patient had been currently admitted to the hospital with increased respiratory symptoms, fever with possible consideration for viral pneumonia, would be considered with superimposed acute congestive heart failure as well with the bilateral pleural effusions. There were no signs for noted aspiration pneumonia. 2. The patient with chronically elevated troponin, significance unknown. 3. Chronic kidney disease, stage 3. The patient noted relatively stable creatinine since previous assessments during hospitalization. 4. The patient with chronic obstructive pulmonary disease with acute exacerbation was noted on this admission resulting from the current ongoing acute respiratory problems. 5. History of coronary artery disease as well. 6. Congestive heart failure with diastolic dysfunction. PLAN OF THERAPY: At this time, the patient was noted very broad-spectrum intravenous antibiotic, that would be continued until the culture results become available, then antibiotic was discontinued after that. Ordered the respiratory virus panel as well. Bronchodilator to be continued. Continue current dose of steroids. No changes to be done. Titrate oxygen supplementation, maintain pulse ox saturation 92% or greater. Obtain the arterial blood gas to assess the ventilatory status as well. BiPAP if necessary could be ordered. Other additional treatment changes will be ordered based on the progression of the illness. Usual care, other plan of management with addition of changes will be ordered and the management of the patient based on the available new data. The patient is currently assessed in the intensive care unit today for his ongoing illness. JOSE J TOMPKINS MD CM:CONSTR:REPORT OF CONSULTATION 1348 07/14/18 1528 interface
--- NOTE | ~2018-07-14 | PR ---
[place], [place] PROGRESS NOTE NAME: DARRIN CUELLAR [facility] #: [id number] UNIT #: [id number] ROOM: [facility] DOCTOR: MARLENY ALTMAN MD BIRTHDATE: [birth year] DOS: 07/15/2018 CARDIOLOGY PROGRESS NOTE SUBJECTIVE: The patient was seen at his bedside today for followup of his atherosclerotic heart disease. He is an 82-year-old man who has a history of hypertension, type 2 diabetes mellitus and a recent non-ST elevation myocardial infarction on 04/19/2018. Catheterization demonstrated 100% occlusion of a first diagonal branch with a 95% PDA lesion. It was felt that he should be managed medically. He presented to the hospital on this occasion with basilar pneumonia and an elevation in his troponin. His peak troponin level was 1.06, but he did not have chest pain or diagnostic EKG changes. I think that this was related to the stress of his respiratory distress. PHYSICAL EXAMINATION: VITAL SIGNS: His pulse is 87 and regular, blood pressure 136/88. He is afebrile. NECK: Supple. He has no jugular distention. Carotids are full. LUNGS: Respirations are unlabored. He does have bibasilar crackles especially at the right base. He has no presacral edema. HEART: Has a regular rhythm and S4 gallop, but No S3 or significant murmur. ABDOMEN: Soft and normally active. EXTREMITIES: Showed no edema. Chest x-ray does show improvement in aeration at the right base. IMPRESSION: 1. Elevated troponin consistent with myocardial injury; most likely this represents demand ischemia, but he may have had a progression of his recent myocardial infarction. At the time of his catheterization, it was felt that he was best treated medically and we will continue that at this time. 2. Bilateral pneumonia. 3. History of coronary artery disease. 4. Chronic obstructive pulmonary disease. 5. Essential hypertension. PLAN: We will continue to observe the patient in the hospital along with his other physicians, but no other cardiac workup is planned at this time. I thank the hospitalist physicians for asking our advice regarding his care. [place], [place] PROGRESS NOTE NAME: DARRIN CUELLAR [facility] #: [id number] UNIT #: [id number] ROOM: [facility] DOCTOR: MARLENY ALTMAN MD BIRTHDATE: [birth year] MARLENY ALTMAN MD CM:PNTRANS [id number] 2 MARLENY ALTMAN MD 07/16/184 interface
--- NOTE | ~2018-07-14 | EKG ---
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54 : 1935 Requested By: KESHAV CHILDERS Order Number: [id number] Reading MD: Bhargav Hermosillo MD Measurements Intervals [place] Rate: 113 P: 255 AL: 166 QRS: -20 QRSD: 98 T: 138 QT: 331 QTc: 454 Interpretive Statements Sinus or ectopic atrial tachycardia Borderline left axis deviation Probable anteroseptal infarct, recent Compared to ECG 06/01/2018 20:40:29 Sinus rhythm no longer present Possible ischemia no longer present T-wave abnormality no longer present Possible ischemia no longer present Myocardial infarct finding still present Electronically Signed On 07-14-2018 18:12:47 PST by Bhargav Hermosillo MD CM:EKGRPT:ELECTROCARDIOGRAM REPORT [id number] 181 KESHAV CHILDERS MD EPIPHANY DRAFT REPORT KESHAV CHILDERS MD
--- NOTE | ~2018-07-14 | PR ---
[place], [place] PROGRESS NOTE NAME: DARRIN CUELLAR [facility] #: [id number] UNIT #: [id number] ROOM: 402 DOCTOR: LEDA JAEGER MD,JOSE J BIRTHDATE: [birth year] DOS: 07/17/2018 SUBJECTIVE: The patient was noted comfortable at this time, sitting on side of the bed. Denies symptoms of chest pain. Shortness breath was resolving. There were no symptoms of fever or chills. No hemoptysis reported. OBJECTIVE: VITAL SIGNS: For the patient which have been recorded showed normal temperature, respiratory rate 19, heart rate 78, blood pressure 150/77. Pulse oxygen saturation on 2 liters 96% saturation. HEENT: Examination shows head was atraumatic. Eyes: No icterus. NECK: Supple. CARDIOVASCULAR: S1, S2 audible. LUNGS: Noted without any wheeze or crackles at the present time. ABDOMEN: Soft, flat, nontender. Bowel sounds present. EXTREMITIES: Without any acute edema. IMPRESSION: The patient with progressive but gradual resolution was noted, acute exacerbation of chronic obstructive pulmonary disease as well as acute pneumonia. PLAN OF MANAGEMENT: The patient could be considered home discharge. Oral antibiotic. Tapering prednisone. Outpatient followup in the office will be kept as previously. JOSE J TOMPKINS MD CM:PNTRANS [id number] JOSE J JAGEER MD 07/18/18 0359 interface
--- NOTE | ~2018-07-14 | EKG ---
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
--- NOTE | ~2018-07-14 | PR ---
[place], [place] PROGRESS NOTE NAME: DARRIN CUELLAR UNIT #: [id number] ROOM: 402 DOCTOR: ALAN DACOSTA MD BIRTHDATE: [birth year] DOS: 07/16/2018 CARDIOLOGY FOLLOWUP VISIT NOTE REASON FOR VISIT: The patient with coronary artery disease and chest pains. SUBJECTIVE The patient denies any chest pain. Breathing is much better. No PND. No orthopnea. He is having some shortness of breath, but no fever, no chills, no edema, no orthopnea. REVIEW OF SYSTEMS: Review of the 10 systems negative except as mentioned above. PHYSICAL EXAMINATION: VITAL SIGNS: Blood pressure 140/84, respiratory rate is 22, pulse 75, weight 93.9 kilos. GENERAL: Alert, comfortable, in no acute distress. HEAD AND NECK: Supple. No distended neck veins. No carotid bruit. Pupils are round and equal. No jaundice. Tongue was moist. CHEST: Symmetrical, nontender. LUNGS: Few scattered rhonchi. Good air entry bilaterally. HEART: Regular rhythm. No S3. No palpable thrills. ABDOMEN: Benign, nontender. Bowel sounds normal. EXTREMITIES: Showed trace edema. Distal pulses palpable. SKIN: Warm. No cyanosis. No clubbing. RECTAL: Deferred. GENITOURINARY: Deferred. MEDICATIONS AND LABORATORIES AND ALLERGIES: Reviewed. IMPRESSION: 1. Atypical chest pain. 2. Coronary artery disease, status post non-ST elevation myocardial infarction, cardiac catheterization in April 2018, medical therapy recommended. 3. Bilateral pneumonia. 4. Chronic obstructive pulmonary disease exacerbation and respiratory failure. 5. Hypertension. RECOMMENDATIONS: 1. Continue current medication as his blood pressure and heart rates are stable. 2. No further cardiac testing. 3. The patient can be transferred to telemetry floor. 4. No family at bedside at the time of my examination. 5. Cardiology will see as needed. [place], [place] PROGRESS NOTE NAME: DARRIN CUELLAR UNIT #: [id number] ROOM: 402 DOCTOR: ALAN DACOSTA MD BIRTHDATE: [birth year] ALAN DACOSTA MD CM:GREGORIO 53 [phone] ALAN DACOSTA MD 07/17/18 145 interface
--- NOTE | ~2018-07-14 | CON ---
[place], [place] REPORT OF CONSULTATION NAME: DARRIN CUELLAR UNIT #: [id number] ROOM: [facility] DOCTOR: JEANINE VILLALOBOS DPM BIRTHDATE: [birth year] DOS: 07/15/2018 SUBJECTIVE: This 82-year-old male is seen for care of painful thick toenails on both feet. He states he had his right great toenail removed about 3 or 4 months ago and it is growing back. He was admitted with pneumonia. PAST MEDICAL HISTORY: Positive for abdominal aortic aneurysm, coronary artery disease, chronic kidney disease stage 3, COPD, diabetes mellitus type 2, essential hypertension, gastroesophageal reflux disease, hiatal hernia, hyperlipidemia, peptic ulcer disease, and vitamin D deficiency. ALLERGIES: TO LORAZEPAM, AMBIEN. CURRENT MEDICATIONS: Include Solu-Medrol, Levaquin, Rocephin, Symbicort, K-Dur, Synthroid, nystatin, Lipitor, Vistaril, Apresoline, Toprol-XL, Imdur, heparin, and insulin. OBJECTIVE: EXTREMITIES: On lower extremity physical examination, DP and PT pedal pulses are mildly decreased. Skin temperature is cool to toes. CFT is 2 seconds to all digits. Chronic pigment changes. Mild dependent edema seen in both lower extremities. Negative Homans sign noted. NEUROLOGIC: Upon neuro exam, sensation is mildly decreased in the forefoot. Contracted lesser digits are seen bilaterally consistent with hammertoe deformity. No pain to palpation or range of motion. Muscle strength appears full without any deficits. Nails 1 through 5 bilaterally are thick and elongated, brittle, and dystrophic with subungual debris present. No open areas are seen. Mild dry skin is seen bilaterally. ASSESSMENT: Hammertoe deformity bilaterally, diabetes mellitus, onychomycosis 1 through 5 bilaterally, mild PAD. PLAN: Consult is performed. Manual debridement of mycotic nails 1 through 5 bilaterally in length and thickness to the level of the nail bed to reduce such infection. Instructed on proper diabetic foot care, instructed on wearing proper shoe gear. Follow up in 2-3 months as an outpatient for continued foot care. Thank you for the opportunity to take part in the care of this patient. [place], [place] REPORT OF CONSULTATION NAME: DARRIN CUELLAR [place] UNIT #: [id number] ROOM: [facility] DOCTOR: JEANINE VILLALOBOS DPM BIRTHDATE: [birth year] JEANINE VILLALOBOS DPM CM:CONSTR:REPORT OF CONSULTATION 1203 07/16/18 0645 interface
--- NOTE | ~2018-07-14 | EKG ---
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
--- NOTE | ~2018-07-14 | PR ---
[place], [place] PROGRESS NOTE NAME: DARRIN CUELLAR [facility] #: [id number] UNIT #: [id number] ROOM: [facility] DOCTOR: LEDA JAEGER MD,JOSE J BIRTHDATE: [birth year] DOS: 07/15/2018 SUBJECTIVE: He has reported reduction in symptoms of shortness of breath in the last 24 hours. Denies symptoms of chest pain. Denies symptoms of fever or chills. Cough has been noted mild without any sputum expectoration. Denies edema or pain of the lower extremities. Denies symptoms of nausea, vomiting, diarrhea, abdominal pain, hematemesis, melena, hematochezia, or fever. The patient was noted as normal this morning of assessment. Denies diplopia. Denies any symptoms of hematuria, suprapubic pain. Remaining systems were reviewed. They were noted all negative. OBJECTIVE: VITAL SIGNS: Temperature was noted completely normal in the last 24 hours, respiratory rate 20-22, heart rate 87-83, blood pressure 136/88-127/85. Pulse oxygen saturation recorded on 2 liters nasal cannula 95% saturation. HEENT: Examination shows head was atraumatic. Eyes nonicterus. NECK: Supple. CARDIOVASCULAR: S1, S2 is audible. LUNGS: The patient was noted without any wheezing or crackle. Breaths are noted [id number] diminished bilaterally. ABDOMEN: Flat, soft, nontender. EXTREMITIES: Without acute edema. MUSCULOSKELETAL: Without any acute deformities. CENTRAL NERVOUS SYSTEM: Cranial nerves 2-12 intact. LABORATORY DATA: CBC this morning, WBC count 5.6, hemoglobin 12.5, hematocrit 39.0, platelet count was noted as normal. BMP this morning, BUN 43, creatinine 1.99, glucose of 219. Potassium 3.4. CO2 of 19. The arterial blood gas was done yesterday on 3 liters nasal cannula, pH of 7.41, pCO2 of 27, pO2 69, consistent with metabolic acidosis. The patient with severe hypoxemia. The chest x-ray that was done this morning, PA lateral view, the patient was ordered for assessment and compared to the previous chest x-ray yesterday. The patient was noted with improvement in aeration of the right lower lung with a small infiltration that was noted in the right lower lobe. Small bilateral pleural fluid also still noted. IMPRESSION: 1. The patient with acute pneumonia. He has been responding to the treatment, but noted very broad spectrum intravenous antibiotics. 2. Possibly superimposed congestive heart failure, small bilateral pleural fluid would be considered. 3. Acute exacerbation of chronic obstructive pulmonary disease as well. 4. The patient with superimposed mild acute kidney injury. PLAN OF THERAPY: The antibiotic spectrum at this time would be changed to only short spectrum antibiotics. Possibility of viral pneumonia remains in consideration as well. Monitor pleural fluid. No intervention would be necessary. Diuretic in case of worsening of the pleural fluid. Intermittent monitor chest x-ray. Titrate supplementation of oxygen, maintain pulse ox 92% [place], [place] PROGRESS NOTE NAME: DARRIN CUELLAR UNIT #: [id number] ROOM: [facility] DOCTOR: LEDA JAEGER MD,JOSE J BIRTHDATE: [birth year] or greater. Dose of Solu-Medrol will be decreased to 40 mg daily since the wheezing. The patient has been improving. Other therapy, plan of management, usual care, other treatment plan of management and plan of care. JOSE J TOMPKINS MD CM:PNTRANS 1128 JOSE J JAEGER MD 07/16/188 interface
--- NOTE | ~2018-07-14 | PR ---
[place], [place] PROGRESS NOTE NAME: DARRIN CUELLAR [facility] #: [id number] UNIT #: [id number] ROOM: 402 DOCTOR: LEDA JAEGER MD,JOSE J BIRTHDATE: [birth year] DOS: 07/16/2018 SUBJECTIVE: The patient was noted comfortable at this time, complaining of heartburn last night, treated with the medication. Denies symptoms of fever or chills. Denies symptoms of nausea, vomiting, diarrhea or abdominal pain. Shortness of breath continued to resolve. Coughing has been improving gradually as well. PHYSICAL EXAMINATION: VITAL SIGNS: For the patient which has been recorded showed the temperature noted as normal. The respiratory rate of the patient recorded as 18-20. The heart rate 79, blood pressure 146/82. HEENT: Examination shows head was atraumatic. Eyes nonicterus. NECK: Supple. CARDIOVASCULAR: S1, S2 audible. LUNGS: Without any wheezing. Crackles still noted low portion of the lungs, greater on the left than the right side. ABDOMEN: Soft, flat, nontender. Bowel sounds present. EXTREMITIES: No acute edema. IMPRESSION: 1. Resolving acute pneumonia gradually for the patient progressively prospect of intravenous antibiotics were discontinued yesterday. The patient was started on IV Rocephin. The culture of the sputum was pending. 2. Resolving acute exacerbation of chronic obstructive pulmonary disease as well. PLAN OF MANAGEMENT: The Solu-Medrol dose has been decreased to 40 mg daily. Continue bronchodilators, oxygen supplementation. Discharge planning per primary care attending. JOSE J TOMPKINS MD CM:PNTRANS 23 JOSE J JAEGER MD 07/16/182024 interface
[2018-07-14 02:38] LABS: BASO # 0.1 10*3/uL (0.0-0.1); BASO % 0.6 % (0.0-1.0); EOS % 0.4 % (1.0-4.0); HEMATOCRIT 46.4 % (42.0-52.0); HEMOGLOBIN 14.9 g/dl (14.0-18.0); LYMPH # 2.7 10*3/uL (1.3-4.4); LYMPH % 24.4 % (27.0-41.0); MEAN CELL VOLUME 88.2 fl (80.0-94.0); MEAN CORPUSCULAR HGB 28.3 pg (27.0-31.0); MEAN CORPUSCULAR HGB CONC 32.1 g/dl (33.0-37.0); MONO # 0.6 10*3/uL (0.1-1.0); MONO % 5.2 % (3.0-9.0); NEUT # 7.5 10*3/uL (2.3-7.9); NEUT % 69.1 % (47.0-73.0); PLATELET COUNT AUTOMATED 249 10*3/uL (130-400); RED BLOOD COUNT 5.26 10*6/uL (4.50-5.90); RED CELL DISTRI WIDTH 15.3 % (0-14.5); WHITE BLOOD COUNT 10.9 10*3/uL (4.8-10.8)
--- NOTE | 2018-07-14 02:39 | NUR ---
ATTEMPTED TO CALL PER PT REQUEST, PHONE NUMBER LISTED IN EMAR IS DISCONNECTED
[2018-07-14 02:52] LABS: ACT PARTIAL THROMBO TIME 27.9 SECONDS (20.8-31.5)
[2018-07-14 02:56] LABS: CREATININE 1.93 mg/dL (0.70-1.30); POTASSIUM 3.9 mmol/L (3.5-5.1); TOTAL PROTEIN 7.1 gm/dL (6.4-8.2); TROPONIN I 0.026 ng/ml (<0.045)
--- NOTE | 2018-07-14 03:07 | NUR ---
MRSA SWAB COLLECTED BY FABIAN [facility]ORO AND SENT TO LAB.
--- NOTE | 2018-07-14 03:14 | NUR ---
NURSE TO NURSE REPORT GIVEN TO THIS RN.PT AWAITING ADMISSON TO [facility].
--- NOTE | 2018-07-14 03:37 | NUR ---
NURSE TO NURSE REPORT GIVEN TO RN ISABEL IN [facility].PT AWAITING TRANSFER TO [facility].
--- NOTE | 2018-07-14 04:00 | NUR ---
A 82, admitted to [facility], under the services of ANGY Pink DO with a diagnosis of PNEUMONIA,COPD,RESPIRATORY FAILURE. Chief complaint is SHORT OF BREATH. Patient arrived via stretcher from ER. Monitor applied. Initial assessment completed. Vital signs taken and recorded. ANGY PINK DO notified of admission to the unit. Orders received. See assessment for past medical history, medications and allergies. Patient and/or family oriented to unit. [facility] visitation policy reviewed. Clothing/patient valuable form completed. MARK MARTÍNEZ
--- NOTE | 2018-07-14 04:20 | NUR ---
PT AND FAMILY REQUEST PASSWORD OF "SCOOTER"
[2018-07-14 05:32] LABS: ABG HCO3 16.6 mmol/l (22-26); ABG O2 SATURATION 90.6 % (95-97); ARTERIAL BLOOD GAS PCO2 29.9 mmHg (35-45); ARTERIAL BLOOD GAS PH 7.371 (7.35-7.45); ARTERIAL BLOOD GAS PO2 67.5 mmHg (80-90)
[2018-07-14 05:36] LABS: ABG BASE EXCESS -6.6 mmol/L (-2.0-2.0)
--- NOTE | 2018-07-14 05:40 | NUR ---
DR TOMPKINS NOTIFIED OF CONSULT AND ABG RESULTS.
--- NOTE | 2018-07-14 06:20 | NUR ---
ANSWERING SERVICE FOR DR ALTMAN NOTIFIED OF CONSULT.
--- NOTE | 2018-07-14 06:32 | NUR ---
DR ALTMAN NOTIFIED OF CONSULT. NO NEW ORDERS AT THIS TIME.
[2018-07-14] MEDS ORDERED: POTASSIUM CHLO10 ME5 PO (07:21)
[2018-07-14] MEDS ORDERED: PROAIR HFA8.5 GM INH (07:25)
--- NOTE | 2018-07-14 07:41 | NUR ---
DARRIN CUELLAR [id number] Please refer to the physician's history and physical for past medical history, comorbid conditions, and allergies. Diagnosis: BILATERAL PNEUMONIA COPD W/AC RESP FAILURE Bishop Score: 16,AT RISK WOUND DESCRIPTIONS: Patient has red satellite lesions noted to bilateral breasts. Musty odor noted. No drainage at time of assessment. Surface the patient is resting on: Isoflex SKIN PREVENTION RECOMMENDATION: 1. Pressure redistribution support surface as appropriate 2. Elevate heels 3. Remove boots/TEDS every shift and reapply 4. Head of bed 30 degrees as tolerated 5. Assess nutrition and hydration 6. Manage moisture 7. Avoid the use of containment devices while in bed 8. Use absorptive products on surfaces limit layers of linens on bed 9. Turn and reposition every 1-2 hours in bed and every 1 hour in chair as tolerated 10. Weight shifts every 15 minutes while up in chair 11. Offloading with pillows or device to keep heels elevated off bed 12. Monitor skin at least every shift 13. Inspect under medical devices twice a day WOUND TREATMENT RECOMMENDATIONS: Cleanse bilateral breasts with soap and water pat area dry then apply nystatin powder every 12 hours. Consult podiatry for toenail care. Heel raiser pro boots while in bed.
--- NOTE | 2018-07-14 07:50 | NUR ---
PHYSICAL THERAPY Nursing screen received. PT orders also received. Thank you. Rupa Wan,PT
--- NOTE | 2018-07-14 08:15 | NUR ---
DR ALTMAN IN WITH PATIENT AT THIS TIME.
--- NOTE | 2018-07-14 08:48 | NUR ---
SHIFT CHART CHECK DONE AT THIS TIME. 24HR CHART CHECK COMPLETED.
--- NOTE | 2018-07-14 08:51 | NUR ---
DR ALTMAN NOTIFIED OF TROPONIN 0.786.
--- NOTE | 2018-07-14 09:42 | NUR ---
DR TOMPKINS IN TO SEE PATIENT AT THIS TIME.
--- NOTE | 2018-07-14 10:31 | NUR ---
Dr. Siddiqui notified of wound care recommendations.
--- NOTE | 2018-07-14 11:04 | NUR ---
MEDICATED WITH VISTARIL FOR ANXIETY.
--- NOTE | 2018-07-14 11:09 | NUR ---
SPEECH THERAPY CALLED TO EXPEDITE AN EVALUATION SO DIET CAN BE ORDERED.
--- NOTE | 2018-07-14 11:21 | NUR ---
SPEECH THERAPY HERE TO SEE PT.
--- NOTE | 2018-07-14 11:26 | NUR ---
DR FERGUSON NOTFIED OF TROPONIN OF 1.06. HE ASKED THAT I NOTIFY DR ALTMAN.
--- NOTE | 2018-07-14 11:41 | NUR ---
DR ALTMAN HAS BEEN NOTIFIED WITH NO NEW ORDERS.
--- NOTE | 2018-07-14 11:42 | NUR ---
SPEECH SAW PATIENT. SEE THEIR NOTES. DIET ORDERED FOR PT. HE'S FEELING BETTER SINCE EARLIER VISTARIL.
--- NOTE | 2018-07-14 11:59 | NUR ---
SPEECH PATHOLOGY Clinical swallowing evaluation completed as per orders due to possible aspiration. Patient was admitted with pneumonia, sepsis, acute respiratory failure. He endorsed choking episodes with liquids, which he states occurs a couple times weekly. Patient reported multiple recent hospitalizations due to breathing difficulty. He is currently NPO. He was alert and oriented for assessment. He was given puree, solid and thin liquid consistencies. No oral or pharyngeal difficulty was noted with any item consumed. His compromised respiratory status places him at risk for aspiration. He is recommended a regular diet and thin liquids with use of safe swallow precautions such as upright positioning for meals, small single sips of liquid and taking breaks as needed when eating if breathing difficulty occurs. Short term follow up is recommended to ensure safe tolerance of diet and adherence to safe swallow precautions. Results and celina. were shared with patient, his nurse and physician. Refer to report in [facility] for further information. Thank you for this referral. JOY CHAU MSCCC-CUSTOMER SOLUTIONS ARCHITECT
--- NOTE | 2018-07-14 13:36 | NUR ---
DR MONTES (PODIATRY RESIDENT) NOTIFIED OF CONSULTATION.
[2018-07-14 14:18] LABS: ABG HCO3 17.3 mmol/l (22-26); ABG O2 SATURATION 95.2 % (95-97); ARTERIAL BLOOD GAS PCO2 27.4 mmHg (35-45); ARTERIAL BLOOD GAS PH 7.413 (7.35-7.45); ARTERIAL BLOOD GAS PO2 69.6 mmHg (80-90)
[2018-07-14 14:19] LABS: ABG BASE EXCESS -5.7 mmol/L (-2.0-2.0)
--- NOTE | 2018-07-14 14:28 | NUR ---
DR TOMPKINS HAD CALLED IN, ORDERS TO [facility]. ABG'S WERE DONE PER RESPIRATORY, RESP VIRUS SPECIMEN OBTAINED AND SENT TO LAB. IV LASIX GIVEN PER ORDER. DR FERGUSON THEN D/C IV FLUIDS AND THIS HAS BEEN DONE.
--- NOTE | 2018-07-14 15:43 | NUR ---
PT REFUSES HEEL RAISER BOOTS, AND HE'S NOT SURE HE WANTS HIS TOENAILS CUT. HE WILL ALLOW PODIATRY TO SEE HIM. MYCOSTATIN POWDER TO AREA UNDER BOTH BREASTS.
--- NOTE | 2018-07-14 16:01 | NUR ---
Nursing screen received and Occupational Therapy referral received. Thank you. Asiya Otero OTr/l
--- NOTE | 2018-07-14 20:27 | NUR ---
DR GRAJEDA HAS BEEN NOTIFIED THAT PT TAKES VISTARIL TWICE/DAY NEEDED FOR ANXIETY, THAT HE'S HAD ONE ALREADY TODAY, AND THE ORDER IS FOR ONCE/DAY PRN. DR RUANO SAID HE WOULD ENTER BID PRN ORDER.
--- NOTE | 2018-07-14 22:35 | NUR ---
PT HAD VISTARIL AT 2117 AND IS RESTING EASIER SINCE THEN.
[2018-07-15] VITALS: BP 127/85
[2018-07-15 04:00] VITALS: BP 138/81
--- NOTE | 2018-07-15 04:23 | NUR ---
Recommend follow up for wound care in outpatient setting patient refused at this time.
[2018-07-15 05:33] LABS: CREATININE 1.99 mg/dL (0.70-1.30); POTASSIUM 3.4 mmol/L (3.5-5.1)
--- NOTE | 2018-07-15 06:10 | NUR ---
SARYTARIL AT 0530 FOR ANXIETY EFFECTIVE....PT RESTING IN BED. BODY RELAXED.
[2018-07-15 06:20] LABS: BASO % 0.2 % (0.0-1.0); LYMPH # 0.4 10*3/uL (1.3-4.4); LYMPH % 6.2 % (27.0-41.0); MEAN CELL VOLUME 86.9 fl (80.0-94.0); MEAN CORPUSCULAR HGB 27.8 pg (27.0-31.0); MEAN CORPUSCULAR HGB CONC 32.1 g/dl (33.0-37.0); MEAN PLATELET VOLUME 10.2 fl (9.6-12.3); MONO # 0.2 10*3/uL (0.1-1.0); MONO % 3.7 % (3.0-9.0); NEUT # 5.1 10*3/uL (2.3-7.9); NEUT % 89.5 % (47.0-73.0); PLATELET COUNT AUTOMATED 185 10*3/uL (130-400); RED BLOOD COUNT 4.49 10*6/uL (4.50-5.90); WHITE BLOOD COUNT 5.6 10*3/uL (4.8-10.8)
[2018-07-15 06:28] LABS: HEMOGLOBIN 12.5 g/dl (14.0-18.0)
[2018-07-15 08:00] VITALS: BP 136/88
--- NOTE | 2018-07-15 09:00 | NUR ---
Train Operations Manager in to talk to patient. Patient states lives at home with his and son. There are 3 steps in the home. Physician: Dr. Evens Gonsalez Pharmacy: [facility]: has had [facility] in the past Patient's level of ADLs: MINIMAL ASSIST Patient has working utilities: yes DME: cane Follow-up physician's appointment after d/c: will be made by the hospitalist nurse director upon discharge Does patient want to access PORTAL?: no Discharge plan discussed with patient. He lives at home with his and son. He is independent in his ADLs and uses a cane for ambulation to a bad knee. Discussed home health care services and he denies any home needs at this time. Dr. Hermosillo spoke to the patient regarding cardiac rehab and he is interested in pursing that. When medically stable he will be discharged to home. CHAPARRO KAPLAN
--- NOTE | 2018-07-15 09:21 | NUR ---
Speech Evaluation note Patient seen for bedside evaluation per orders. Oral and Pharyngeal phrases normal with no overt signs and symptoms of aspiration on regular and thin liquid textures.Recommend diet as tolerated which patient reports is regular texture as he is cognitively oriented.No therapy recommended at this time discussed pateint with nursing. Nitza Moore MA CCC-LENS FABRICATING MACHINE TENDER
[2018-07-15 12:00] VITALS: BP 140/77
--- NOTE | 2018-07-15 12:03 | NUR ---
CIGARETTE CATCHER HERE TO CUT PT'S TOENAILS.
--- NOTE | 2018-07-15 12:04 | NUR ---
DR ALTMAN IN TO SEE PT.
--- NOTE | 2018-07-15 12:05 | NUR ---
Occupational Therapy evaluation completed in ICCU with full eval to follow. Precautions include fall risk, left knee pain with weight bearing, ICCU,unsteady in standing. Patient is moderate complexity level 30108 via chart review, testing and evaluaion. Recommend home with home health OT,PT,SN as patient declines any SNF at this time. Thank you for this referral. Asiya Otero OTR/l
[2018-07-15 16:00] VITALS: BP 150/85
--- NOTE | 2018-07-15 16:18 | NUR ---
PT RESTING. NO ACUTE DISTRESS NOTED AT THIS TIME.
--- NOTE | 2018-07-15 16:53 | NUR ---
MEDICATED PT PER PRN ORDER WITH VISTARIL FOR C/O ANXIETY AND AGITATION.
--- NOTE | 2018-07-15 18:04 | NUR ---
PT DENIES C/O. EARLIER VISTARIL EFFECTIVE.
--- NOTE | 2018-07-15 19:22 | NUR ---
CHART CHECK COMPLETE.
--- NOTE | 2018-07-15 19:53 | NUR ---
WATCHING TV. ASSESSMENT COMPLETE. VSS. PT WITHOUT COMPLAINTS.
[2018-07-15 20:00] VITALS: BP 144/81
--- NOTE | 2018-07-15 21:56 | NUR ---
ASSISTING PT WITH BATH. HE ALSO SHAVED WELL.
[2018-07-16] VITALS: BP 152/81
[2018-07-16 04:00] VITALS: BP 146/82
[2018-07-16 08:00] VITALS: BP 147/84
--- NOTE | 2018-07-16 08:00 | NUR ---
PHYSICAL THERAPY PT EVAL COMPLETED TODAY: FULL EVALUATION TO FOLLOW. RECOMMEND PT WHILE HERE TO ADDRESS DECREASED MOBILITY AND STRENGTH. PT EVAL IS MDOERATE COMPLEXITY BASED ON CHART REVIEW, TEST RESULTS AND EVALUATION: [id number]. D/C RECOMMENDATIONS ARE HOME WITH HOME PT HE HAS SUPPORT AT HOME AND DOES NOT WISH TO GO TO ANY SNF AND BASED OFF OF EVALUATION WOULD NOT MEET CRITERIA. THANK YOU FOR REFERRAL ALLIE CANCHOLA PT
[2018-07-16 09:52] LABS: BASO % 0.1 % (0.0-1.0); EOS % 0.1 % (1.0-4.0); HEMATOCRIT 39.9 % (42.0-52.0); HEMOGLOBIN 12.4 g/dl (14.0-18.0); LYMPH % 11.5 % (27.0-41.0); MEAN CELL VOLUME 89.3 fl (80.0-94.0); MEAN CORPUSCULAR HGB 27.7 pg (27.0-31.0); MEAN CORPUSCULAR HGB CONC 31.1 g/dl (33.0-37.0); MEAN PLATELET VOLUME 10.1 fl (9.6-12.3); MONO # 0.6 10*3/uL (0.1-1.0); MONO % 6.6 % (3.0-9.0); NEUT # 7.2 10*3/uL (2.3-7.9); NEUT % 81.3 % (47.0-73.0); PLATELET COUNT AUTOMATED 203 10*3/uL (130-400); RED BLOOD COUNT 4.47 10*6/uL (4.50-5.90); RED CELL DISTRI WIDTH 15.6 % (0-14.5); WHITE BLOOD COUNT 8.9 10*3/uL (4.8-10.8)
[2018-07-16 10:24] LABS: CREATININE 1.86 mg/dL (0.70-1.30); POTASSIUM 3.9 mmol/L (3.5-5.1)
[2018-07-16 12:00] VITALS: BP 150/86
[2018-07-16 16:00] VITALS: BP 145/77
[2018-07-16 20:00] VITALS: BP 146/87
[2018-07-16 22:10] LABS: ADENOVIRUS Negative (Negative); INFLUENZA A Negative (Negative); INFLUENZA B Negative (Negative); METAPNEUMOVIRUS Negative (Negative); PARAINFLUENZA 1 Negative (Negative); PARAINFLUENZA 2 Negative (Negative); PARAINFLUENZA 3 Negative (Negative); RHINOVIRUS Positive (Negative); RSV A Negative (Negative); RSV B Negative (Negative)
[2018-07-17] VITALS: BP 146/87
[2018-07-17 06:17] LABS: BASO % 0.1 % (0.0-1.0); HEMATOCRIT 41.1 % (42.0-52.0); HEMOGLOBIN 12.9 g/dl (14.0-18.0); LYMPH # 1.4 10*3/uL (1.3-4.4); LYMPH % 15.3 % (27.0-41.0); MEAN CELL VOLUME 89.3 fl (80.0-94.0); MEAN CORPUSCULAR HGB CONC 31.4 g/dl (33.0-37.0); MEAN PLATELET VOLUME 10.5 fl (9.6-12.3); MONO # 0.7 10*3/uL (0.1-1.0); MONO % 7.4 % (3.0-9.0); NEUT # 6.9 10*3/uL (2.3-7.9); NEUT % 76.3 % (47.0-73.0); PLATELET COUNT AUTOMATED 230 10*3/uL (130-400); RED CELL DISTRI WIDTH 15.7 % (0-14.5); WHITE BLOOD COUNT 9.1 10*3/uL (4.8-10.8)
[2018-07-17 06:45] LABS: POTASSIUM 4.3 mmol/L (3.5-5.1)
[2018-07-17 07:13] LABS: CREATININE 1.81 mg/dL (0.70-1.30)
[2018-07-17 08:00] VITALS: BP 150/84
[2018-07-17 12:00] VITALS: BP 150/77
[2018-07-17] MEDS ORDERED: MUCINEX ER600 MG PO ×2 (13:17→13:20)
[2018-07-17] MEDS ORDERED: PREDNISONE10 MG PO (13:20)
[2018-07-17] MEDS ORDERED: LEVAQUIN750 M1 PO (13:20)
--- NOTE | 2018-07-17 17:40 | NUR ---
Discharge instructions reviewed with patient/family. Patient receptive and verbalizes understanding. Follow-up care arranged. Written instructions given to patient/family. QUEENIE LIEBERMAN
[2018-08-14] MEDS ORDERED: TOPROL XL50 M1 PO (17:29)
[2018-08-14] MEDS ORDERED: APRESOLINE25 MG PO (17:29)
[2018-08-14] MEDS ORDERED: Isordil20 MG PO (17:29)
[2018-08-25] MEDS ORDERED: METOPROLOL SUC100 M1 PO (12:50)
[2018-08-25] MEDS ORDERED: VISTARIL25 MG PO (12:50)
[2018-08-25] MEDS ORDERED: VITAMIN D32000 UNI1 PO (12:50)
[2018-08-25] MEDS ORDERED: IMDUR SA30 MG PO (12:50)
[2018-08-25] MEDS ORDERED: Humalog SQ (12:50)
[2018-08-25] MEDS ORDERED: Ipratropium Brom3 ML NEB (12:50)
[2018-08-25] MEDS ORDERED: Lantus SC (12:50)
[2018-09-17] MEDS ORDERED: LEVOTHYROXINE200 MC2 PO (11:44)
[2018-09-17] MEDS ORDERED: IMDUR SA30 MG PO (11:44)
[2018-09-17] MEDS ORDERED: LIPITOR40 MG PO (11:44)
[2018-09-17] MEDS ORDERED: PEN NEEDLE1 EAC1 MC (11:44)
[2018-09-17] MEDS ORDERED: VISTARIL25 MG PO (11:44)
[2018-09-17] MEDS ORDERED: APRESOLINE25 MG PO (11:44)
[2018-09-17] MEDS ORDERED: OMEPRAZOLE40 MG PO (11:44)
[2018-09-17] MEDS ORDERED: ACCU-CHEK FAST1 EACH MC (11:44)
[2018-09-17] MEDS ORDERED: POTASSIUM CHLO10 ME5 PO (11:44)
[2018-09-17] MEDS ORDERED: LORATADINE10 M3 PO (11:44)
[2018-09-17] MEDS ORDERED: VITAMIN D32000 UNI1 PO (11:44)
[2018-09-17] MEDS ORDERED: MULTIVITAMINS1 EAC6 PO (11:44)
[2018-09-17] MEDS ORDERED: FLONASE ALLERG9.9 ML NAS (11:44)
[2018-09-17] MEDS ORDERED: METOPROLOL SUC100 M1 PO (11:44)
[2018-09-17] MEDS ORDERED: Humalog SQ (11:44)
[2018-09-17] MEDS ORDERED: BAYER ASPIRIN C81 MG PO (11:44)
[2018-09-17] MEDS ORDERED: Ipratropium Brom3 ML NEB (11:44)
[2018-09-17] MEDS ORDERED: TEST STRIPS1 EACH MC (11:44)
[2018-09-17] MEDS ORDERED: LANTUS SOL100 UNIT/1 SQ (11:44)
[2018-09-17] MEDS ORDERED: SYMB160 INH (11:44)
[2018-09-17] MEDS ORDERED: SALINE NOSE SPR45 ML NAS (11:44)
[2018-09-25] MEDS ORDERED: CEPHALEXIN500 M1 PO (08:12)
== END 2018-07-17 17:40 | disposition home or self-care (01) | DRG 871 ==
LOC: ED 02:03 → EDHOLD 02:54 → ICCU 02:54 → 4E 07-16 13:58
PROVIDERS: Emergency Medicine Emergency Medical Services; Internal Medicine; Internal Medicine Critical Care Medicine; ADMIT Internal Medicine
PROC: 0HBRXZZ Excision of Toe Nail, External Approach (ICD-10-PCS; principal; 2018-07-15)
DX: A41.9 Sepsis, unspecified organism (principal); J18.1 Lobar pneumonia, unspecified organism; J96.00 Acute respiratory failure, unspecified whether with hypoxia or hypercapnia; I21.A1 Myocardial infarction type 2; J44.1 Chronic obstructive pulmonary disease with (acute) exacerbation; E44.0 Moderate protein-calorie malnutrition; I16.1 Hypertensive emergency; I13.0 Hypertensive heart and chronic kidney disease with heart failure and stage 1 through stage 4 chronic kidney disease, or unspecified chronic kidney disease; J44.0 Chronic obstructive pulmonary disease with (acute) lower respiratory infection; N17.9 Acute kidney failure, unspecified; I50.42 Chronic combined systolic (congestive) and diastolic (congestive) heart failure; R65.20 Severe sepsis without septic shock; I25.10 Atherosclerotic heart disease of native coronary artery without angina pectoris; N18.3 Chronic kidney disease, stage 3 (moderate); K27.9 Peptic ulcer, site unspecified, unspecified as acute or chronic, without hemorrhage or perforation; E11.22 Type 2 diabetes mellitus with diabetic chronic kidney disease; K21.9 Gastro-esophageal reflux disease without esophagitis; E78.5 Hyperlipidemia, unspecified; F17.210 Nicotine dependence, cigarettes, uncomplicated; L89.152 Pressure ulcer of sacral region, stage 2; E11.65 Type 2 diabetes mellitus with hyperglycemia; E55.9 Vitamin D deficiency, unspecified; K44.9 Diaphragmatic hernia without obstruction or gangrene; E66.3 Overweight; B35.1 Tinea unguium; E11.36 Type 2 diabetes mellitus with diabetic cataract; J98.4 Other disorders of lung; I25.2 Old myocardial infarction; Z87.11 Personal history of peptic ulcer disease; Z88.9 Allergy status to unspecified drugs, medicaments and biological substances; Z85.00 Personal history of malignant neoplasm of unspecified digestive organ; Z82.49 Family history of ischemic heart disease and other diseases of the circulatory system; Z68.26 Body mass index [BMI] 26.0-26.9, adult; Z79.4 Long term (current) use of insulin

== ENCOUNTER 2018-08-04 15:56 | Inpatient (IN) | payer OTHER ==
[~2018-08-04] VITALS: Ht 193 cm; Wt 99.5 kg
--- NOTE | ~2018-08-04 | EKG ---
[place], [place] ELECTROCARDIOGRAM REPORT NAME: DARRIN CUELLAR UNIT #: [id number] ROOM: 511 DOCTOR: CHRIS DRAFT REPORT BIRTHDATE: [birth year] [facility] Test Date: 2018-08-04 Test Time: 16:01:25 Pat Name: DARRIN CUELLAR Department: Room: 511 Gender: M Licensed Surveyor: Clint Shah : 1935 Requested By: DIANA MATTHEWS Order Number: [id number] Reading MD: Conrad Hunt MD Measurements Intervals [place] Rate: 75 P: 78 ID: 197 QRS: -7 QRSD: 100 T: 170 QT: 398 QTc: 445 Interpretive Statements Sinus rhythm Probable anterior infarct, old Borderline repolarization abnormality Baseline wander in lead(s) I,II,aVR,aVL Compared to ECG 07/14/2018 08:51:50 Ectopic atrial rhythm no longer present Left-axis deviation no longer present T-wave abnormality no longer present Myocardial infarct finding still present Electronically Signed On 08-05-2018 9:50:12 PST by Conrad Hunt MD CM:EKGRPT:ELECTROCARDIOGRAM REPORT 1601 0950 DIANA MORALES DRAFT REPORT DIANA MATTHEWS DO
--- NOTE | ~2018-08-04 | EKG ---
[place], [place] ELECTROCARDIOGRAM REPORT NAME: DARRIN CUELLAR UNIT #: [id number] ROOM: 511 DOCTOR: CHRIS DRAFT REPORT BIRTHDATE: [birth year] [facility] Test Date: 2018-08-04 Test Time: 21:46:43 Pat Name: DARRIN CUELLAR Department: Room: 511 Gender: M Dental Front Office Assistant: Clint Shah : 1935 Requested By: DIANA MATTHEWS Order Number: [id number] Reading MD: Conrad Hunt MD Measurements Intervals [place] Rate: 90 P: 44 [place]: 215 QRS: -17 QRSD: 102 T: 120 QT: 402 QTc: 492 Interpretive Statements Sinus rhythm Atrial premature complexes, Probable left atrial enlargement Borderline left axis deviation Abnormal lateral Q waves Anterior infarct, old Minimal ST depression, lateral leads Electronically Signed On 08-05-2018 9:52:11 PST by Conrad Hunt MD CM:EKGRPT:ELECTROCARDIOGRAM REPORT 0952 DIANA MORALES DRAFT REPORT DIANA MATTHEWS DO
--- NOTE | ~2018-08-04 | PR ---
[place], [place] PROGRESS NOTE NAME: DARRIN CUELLAR [facility] #: [id number] UNIT #: [id number] ROOM: 511 DOCTOR: JOSE J GUERRERO MD BIRTHDATE: [birth year] DOS: 08/08/2018 PULMONARY PROGRESS NOTE SUBJECTIVE: The patient has been doing better gradually with improvement and reduction of the respiratory symptoms, complaining of weakness. The patient stated he does not want to get discharged home today. He has been noted weak and would like to stay in the hospital to ambulate and to assess his weakness. Denies symptoms of fever or chills. The cough has been noted absent. The hyperglycemia has been improved with reduction of the corticosteroids. OBJECTIVE: VITAL SIGNS: For the patient, which were recorded showed the temperature noted as normal, respiratory rate 18, heart rate 90, blood pressure 150/70. Pulse oxygen saturation recorded as 98% saturation. HEENT: Head was atraumatic. Eyes nonicterus. NECK: Supple. CARDIOVASCULAR SYSTEM: S1, S2 is audible. LUNGS: The patient was noted with [id number] decreased breath sounds in the lungs. There were no crackles or wheezing. ABDOMEN: Soft, nontender. Bowel sounds present. EXTREMITIES: The patient was noted with improving edema of the lower extremities. LABORATORY DATA: BMP this morning; BUN of 77, creatinine 2.09. Glucose of 117. CBC of the patient is normal hemoglobin, hematocrit and platelet count noted decreased at 87,000. The chest x-ray that was done this morning was also reviewed shows improving aeration of the lower lungs with very small pleural fluid with small area of atelectasis still noted. IMPRESSION: Resolving acute congestive heart failure, basilar area of atelectasis, acute exacerbation of chronic obstructive pulmonary disease, improving hyperglycemia. PLAN OF THERAPY: No changes in the plan of care at this time from pulmonary standpoint. Continue bronchodilators, oxygen supplementation. Solu-Medrol has been discontinued yesterday completely. The patient has been doing well with current medical treatment and would not require corticosteroids at the present time. [place], [place] PROGRESS NOTE [id number] #: [id number] ROOM: 511 DOCTOR: JOSE J GUERRERO MD BIRTHDATE: [birth year] JOSE J TOMPKINS MD CM:PNTRANS 1058 JOSE J JAEGER MD 08/09/189 interface
--- NOTE | ~2018-08-04 | CON ---
[place], [place] REPORT OF CONSULTATION NAME: DARRIN CUELLAR [facility] #: [id number] UNIT #: [id number] ROOM: 511 DOCTOR: JOSE J GUERRERO MD BIRTHDATE: [birth year] DOS: 08/05/2018 PULMONARY CONSULTATION EVALUATION AND MANAGEMENT CONSULTATION REQUESTED BY: Hospitalist Service. REASON FOR CONSULTATION: For the assessment of symptoms of shortness of breath. HISTORY OF PRESENT ILLNESS: This is an 82-year-old white male patient with a past known history of moderate COPD has been admitted to the hospital. In the beginning of 07/2018, the patient treated for acute pneumonia with exacerbation of chronic obstructive pulmonary disease, improved significantly prior to discharge and was doing very well. The patient has been admitted to the hospital again on 08/04/2018 as he has reported symptoms of increased shortness of breath occurred at home as the main symptom. Denies symptoms of chest pain, coughing, wheezing or hemoptysis. He denies symptoms of postnasal drainage with current symptoms. The patient has been admitted to the hospital for further assessment of current symptoms of shortness of breath. Chest x-ray suggested possibility of congestive heart failure as well. REVIEW OF SYSTEMS: CONSTITUTIONAL SYMPTOMS: Fatigue and tiredness reported. Denies symptoms of fever or chills. EYES: Denies burning, discharge, or redness. EARS, NOSE, THROAT SYMPTOMS: Denies sore throat, hoarseness, otalgia, postnasal drip, or epistaxis. CARDIOVASCULAR: Denies anginal pain, edema, pain of the lower extremities. GASTROINTESTINAL: Denies dysphagia, nausea, vomiting, diarrhea, abdominal pain, hematemesis, melena, or hematochezia. GENITOURINARY: No dysuria, suprapubic pain, or hematuria. MUSCULOSKELETAL: Denies any acute joint pain, redness, or tenderness. CENTRAL NERVOUS SYSTEM: Denies diplopia or syncopal episodes. Remaining systems were reviewed, they were noted all negative. Past medical history, surgical history, social history, and family history all reviewed since my last consultation, which was done on his recent admission on 07/14/2018 was reviewed with the patient and remains unchanged. CURRENT MEDICATIONS: Administered on this hospitalization. Use of Lipitor, potassium chloride, metoprolol succinate, Imdur, albuterol sulfate, aspirin, hydralazine, levothyroxine, Lasix 80 mg IV b.i.d., Protonix, Pulmicort Respules, Mucinex, azithromycin, IV Rocephin, and other p.r.n. medications. DRUG ALLERGIES: Noted as allergy: 1. ATIVAN. 2. AMBIEN. PHYSICAL EXAMINATION: GENERAL: This is an 82-year-old white male who has been currently noted awake [place], [place] REPORT OF CONSULTATION [facility]: [id number]IT #: [id number] ROOM: [facility] DOCTOR: LEDA JAEGER MD,[facility] BIRTHDATE: [birth year] and alert this morning of assessment. Height as 6 feet 4 inches, weight of 212 pounds, BMI 25.8. VITAL SIGNS: Normal temperature, respiratory rate 20-26. Height of 150-90, blood pressure 122/71-148/68. The pulse oxygen saturation recorded on 3 liters nasal cannula 96% saturation at rest on room air on admission was 87% saturation. HEENT: Examination shows head was atraumatic. Eyes nonicterus. NECK: Supple. CARDIOVASCULAR: S1, S2 audible. LUNGS: Moderate diminished breath sounds in the lungs were noted bilaterally. ABDOMEN: Flat, soft, nontender. Bowel sounds present. EXTREMITIES: Without edema, clubbing, cyanosis. MUSCULOSKELETAL: The patient was noted without any acute deformities. CENTRAL NERVOUS of NERVOUS SYSTEM: Cranial nerves 2-12 intact. SKIN: Without lesions or rashes. LABORATORY DATA: BMP that was done on 08/04/2018 for this admission BUN 60, creatinine 2.18, glucose 309. Potassium 3.2. PT and PTT on 08/04/2018 was normal. CBC on 08/04/2018 on admission as hemoglobin and hematocrit, WBC count were all noted as normal. WBC is 8000 and 1.4% eosinophils. The BMP that was done this morning, BUN 59, creatinine 1.94. Potassium 3.4. CBC that was done this morning, WBC count 5.2, platelet count was still noted low as 85,000. The chest x-ray that was done 1 view shows evidence of pulmonary venous congestion, small bilateral pleural fluid and increased interstitial markings. IMPRESSION: 1. The patient will be currently admitted to the hospital with acute hypoxic respiratory failure, most likely related to the acute congestive heart failure, bilateral pleural fluid and pulmonary venous congestion less likely to be a pneumonia. The patient does not have any evidence, which has been noted clinically for acute exacerbation of chronic obstructive pulmonary disease as well. 2. The patient with acute kidney patient most likely secondary to acute congestive heart failure would be considered as well. 3. History of general anxiety disorder as well and acute recent management for the acute pneumonia. PLAN OF MANAGEMENT: Heart problem at this time. Echocardiogram and Cardiology consultation. Antibiotic will be discontinued, not needed. Bronchodilator will be continued on p.r.n. symptoms of bronchospasm or others. Supportive therapy, plan of management, current plan for the patient as well. Obtain arterial blood gas to assess the ventilatory status and oxygenation in the blood. Other supportive plan of management, care plan to be continued. Based on the progression of the illness. Obtain a chest x-ray, PA lateral view in the morning to further assess the current abnormality on the chest x-ray. Pleural fluid was not noted large enough that require any thoracentesis at the present time of assessment. The kidney functions seem to be better with current dose of diuretic, which has been given high dose to be continued as Lasix 80 mg b.i.d. with close monitoring of the electrolyte imbalance with the patient's BUN and creatinine with that. [place], [place] REPORT OF CONSULTATION NAME: DARRIN CUELLAR UNIT #: [id number] ROOM: [facility] DOCTOR: JOSE J GUERRERO MD BIRTHDATE: [birth year] Thanks for allowing me to participate in the care of this patient. JOSE J TOMPKINS MD CM:CONSTR:REPORT OF CONSULTATION 1207 08/15/18 0910 interface
--- NOTE | ~2018-08-04 | EKG ---
[place], [place] ELECTROCARDIOGRAM REPORT NAME: DARRIN CUELLAR UNIT #: [id number] ROOM: 511 DOCTOR: CHRIS DRAFT REPORT BIRTHDATE: [birth year] [facility] Test Date: 2018-08-04 Test Time: 17:59:12 Pat Name: DARRIN CUELLAR Department: Room: 511 Gender: M Blow Mold Technician: Clint Shah : 1935 Requested By: DIANA MATTHEWS Order Number: [id number] Reading MD: Conrad Hunt MD Measurements Intervals [place] Rate: 73 P: 22 ME: 211 QRS: -20 QRSD: 103 T: 160 QT: 430 QTc: 474 Interpretive Statements Sinus rhythm Multiple premature complexes, vent \T\ supraven LVH with secondary repolarization abnormality Anterior infarct, old Compared to ECG 07/14/2018 08:51:50 Left ventricular hypertrophy now present Early repolarization now present Ectopic atrial rhythm no longer present Left-axis deviation no longer present T-wave abnormality no longer present Myocardial infarct finding still present Electronically Signed On 08-05-2018 9:50:45 PST by Conrad Hunt MD CM:EKGRPT:ELECTROCARDIOGRAM REPORT 1759 0950 DIANA MORALES DRAFT REPORT DIANA MATTHEWS DO
--- NOTE | ~2018-08-04 | PR ---
[place], [place] PROGRESS NOTE NAME: DARRIN CUELLAR [facility] #: [id number] UNIT #: [id number] ROOM: 511 DOCTOR: LEDA JAEGER MD,JOSE J BIRTHDATE: [birth year] DOS: 08/07/2018 SUBJECTIVE: The patient was noted with hyperglycemia last night, which has been treated with the use of insulin. He has not been noted symptoms of chest pain, shortness of breath have been gradually subsiding. There were no symptoms of fever or chills. Denies symptoms of hemoptysis. OBJECTIVE: VITAL SIGNS: For the patient which has been recorded showed normal temperature, respiratory rate 19, heart rate 103, blood pressure 149/78. Pulse oxygen saturation recorded as 95% saturation on 2 liters nasal cannula. HEENT: Examination shows head was atraumatic. Eyes nonicterus. NECK: Supple. CARDIOVASCULAR: S1, S2 audible. LUNGS: Decreased breaths in the low portion of the lungs, mild crackles, no wheezing. ABDOMEN: Soft, nontender. Bowel sounds present. EXTREMITIES: Mild edema. IMPRESSION: 1. The patient with resolving acute congestive heart failure, at the present time. 2. Hyperglycemia secondary to corticosteroids. 3. Resolving acute exacerbation of chronic obstructive pulmonary disease. PLAN OF MANAGEMENT: The Solu-Medrol will be discontinued this morning. Use of the Pulmicort Respules and bronchodilator treatment at this time. If necessary, the steroids will be added to the treatment. Again, the patient has a lower dose with a tapering fashion. Obtain a chest x-ray in the morning to assess the progression of the pleural fluid is area of atelectasis related to that. JOSE J TOMPKINS MD CM:PNTRANS 1408 99 JOSE J JAEGER MD 08/07/18 190 interface
--- NOTE | ~2018-08-04 | PR ---
[place], [place] PROGRESS NOTE NAME: DARRIN CUELLAR [facility] #: [id number] UNIT #: [id number] ROOM: 511 DOCTOR: LEDA JAEGER MD,JOSE J BIRTHDATE: [birth year] DOS: 08/09/2018 PULMONARY PROGRESS NOTE SUBJECTIVE: He has been noted comfortable at this time, resting, sitting this morning on the side of the bed. He has not been noted symptoms of chest pain, shortness of breath and general weakness the patient was noted decreased. There was no cough or wheezing as stated by the patient. OBJECTIVE: VITAL SIGNS: Normal temperature, respiratory rate 18, heart rate 87, blood pressure 124/77. Pulse oxygen saturation of the patient recorded as 97% saturation on 1 liter nasal cannula. HEENT: Examination shows head was atraumatic. Eyes: No icterus. NECK: Supple. CARDIOVASCULAR: S1, S2 audible. LUNGS: The patient was noted without any wheeze or crackle at the present time. ABDOMEN: Soft, nontender. Bowel sounds present. EXTREMITIES: Showing a resolving edema of the lower extremities. IMPRESSION: 1. Resolving acute congestive heart failure of the patient with bilateral pleural fluid, area of compression atelectasis and chronic obstructive pulmonary disease exacerbation. 2. Increased BUN and creatinine of the patient secondary to diuretics. PLAN OF MANAGEMENT: The patient has been ordered assessment from oxygen could be considered from a pulmonary standpoint home discharge if agreed by the other consultants. Other therapy, plan of management, care plan and treatments. JOSE J TOMPKINS MD CM:PNTRANS 1126 1140 JOSE J JAEGER MD 08/09/18 1140 interface
--- NOTE | ~2018-08-04 | PR ---
[place], [place] PROGRESS NOTE NAME: DARRIN CUELLAR [facility] #: [id number] UNIT #: [id number] ROOM: 511 DOCTOR: LEDA JAEGER MD,JOSE J BIRTHDATE: [birth year] DOS: 08/06/2018 PULMONARY PROGRESS NOTE SUBJECTIVE: He has been noted reduction in symptoms of shortness of breath from yesterday. There was no coughing, chest pain or sputum expectoration. The patient has an echocardiogram completed. Results were pending. Denies symptoms of fever or chills. The patient denies symptoms of headache or diplopia. Denies symptoms of nausea, vomiting, diarrhea, abdominal pain, hematemesis, or melena. OBJECTIVE: VITAL SIGNS: For the patient which were recorded normal temperature, respiratory rate 18, heart rate 85, blood pressure 114/82. Pulse oxygen saturation on 2 liters nasal cannula 95% saturation. Intake of 1130, the output were not documented. HEENT: Examination shows head was atraumatic. Eyes nonicterus. NECK: Supple. CARDIOVASCULAR: S1, S2 is audible. LUNGS: Without any wheezing. Decreased breath sounds with mild crackles at the lung bases. ABDOMEN: Soft, nontender. EXTREMITIES: No acute change. CENTRAL NERVOUS SYSTEM: Cranial nerves 2-12 are intact. No focal deficit. MUSCULOSKELETAL: Without acute deformities. SKIN: No lesions or rashes. LABORATORY DATA: BMP today, BUN 60, creatinine 2.13, glucose 413. CBC this morning was noted as platelet count 74,000. Chest x-ray done this morning were reviewed, PA lateral view shows reduction of the pleural fluid noted in the lungs with basilar areas of atelectasis. IMPRESSION: The patient who has been currently admitted to the hospital with: 1. Acute pneumonia with bilateral pleural fluid, area of compression atelectasis. 2. Acute hypoxic respiratory failure secondary to the above. 3. Thrombocytopenia, etiology was unclear. 4. The patient with chronic obstructive pulmonary disease was also noted with hyperglycemia worsened because of the use of the corticosteroids. PLAN OF MANAGEMENT: Decrease the Solu-Medrol dose to 40 mg daily. Continue diuretic therapy, monitor kidney functions closely. No need of antibiotics as well. Monitor pleural fluid. Continue DVT prophylaxis. Usual care, other supportive plan of management input from the patient Cardiology Services. Other additional treatment changes will be made based on progression of the illness. Usual care. [place], [place] PROGRESS NOTE NAME: DARRIN CUELLAR UNIT #: [id number] ROOM: 511 DOCTOR: JOSE J GUERRERO MD BIRTHDATE: [birth year] JOSE J TOMPKINS MD CM:PNTRANS 1416 1439 JOSE J JAEGER MD 08/06/18 1439 interface
[~2018-08-04 15:56] MED LIST changes: +POTASSIUM CHLO10 ME5 PO; +PROAIR HFA8.5 GM INH
[2018-08-04 15:58] VITALS: BP 161/101
[2018-08-04 16:42] LABS: BASO % 0.2 % (0.0-1.0); EOS # 0.1 10*3/uL (0.0-0.4); EOS % 1.4 % (1.0-4.0); HEMATOCRIT 47.7 % (42.0-52.0); HEMOGLOBIN 15.3 g/dl (14.0-18.0); LYMPH % 12.9 % (27.0-41.0); MEAN CELL VOLUME 90.2 fl (80.0-94.0); MEAN CORPUSCULAR HGB 28.9 pg (27.0-31.0); MEAN CORPUSCULAR HGB CONC 32.1 g/dl (33.0-37.0); MEAN PLATELET VOLUME 12.1 fl (9.6-12.3); MONO # 0.5 10*3/uL (0.1-1.0); MONO % 6.4 % (3.0-9.0); NEUT # 6.3 10*3/uL (2.3-7.9); NEUT % 78.5 % (47.0-73.0); PLATELET COUNT AUTOMATED 80 10*3/uL (130-400); RED BLOOD COUNT 5.29 10*6/uL (4.50-5.90); RED CELL DISTRI WIDTH 17.8 % (0-14.5)
[2018-08-04 16:51] LABS: ACT PARTIAL THROMBO TIME 24.3 SECONDS (20.8-31.5)
[2018-08-04 17:04] LABS: ALBUMIN 2.8 gm/dl (3.1-4.5); CREATININE 2.18 mg/dL (0.70-1.30); POTASSIUM 3.2 mmol/L (3.5-5.1)
[2018-08-04 17:05] VITALS: BP 148/68
[2018-08-04 17:13] LABS: TROPONIN I 0.097 ng/ml (<0.045)
[2018-08-04 20:30] VITALS: BP 160/104
[2018-08-04] MEDS ORDERED: OMEPRAZOLE40 MG PO (21:01)
[2018-08-04 21:02] VITALS: BP 160/104
[2018-08-05] VITALS (8 sets, daily range): BP systolic 122–170; BP diastolic 52–86
[2018-08-05 06:25] LABS: HEMATOCRIT 49.3 % (42.0-52.0); HEMOGLOBIN 15.9 g/dl (14.0-18.0); MEAN CELL VOLUME 89.3 fl (80.0-94.0); MEAN CORPUSCULAR HGB 28.8 pg (27.0-31.0); MEAN CORPUSCULAR HGB CONC 32.3 g/dl (33.0-37.0); MEAN PLATELET VOLUME 12.3 fl (9.6-12.3); PLATELET COUNT AUTOMATED 85 10*3/uL (130-400); RED BLOOD COUNT 5.52 10*6/uL (4.50-5.90); RED CELL DISTRI WIDTH 17.8 % (0-14.5); WHITE BLOOD COUNT 5.2 10*3/uL (4.8-10.8)
[2018-08-05 06:52] LABS: CREATININE 1.94 mg/dL (0.70-1.30); PHOSPHOROUS 3.3 mg/dL (2.5-4.9); POTASSIUM 3.4 mmol/L (3.5-5.1)
[2018-08-05 07:00] LABS: FREE T4 1.92 ng/dl (0.76-1.46); THYROID STIM HORMONE (HS) 0.173 uIU/ml (0.358-4.75)
[2018-08-05 08:12] LABS: BURR CELLS FEW; TOTAL CELLS COUNTED 100 #CELLS
[2018-08-05 08:13] LABS: PLATELET SUFFICIENCY LOW (NORMAL)
[2018-08-05 08:51] LABS: VITAMIN D, 25-HYDROXY 45.1 ng/mL (30-100)
[2018-08-06 00:36] VITALS: BP 142/60
[2018-08-06 04:00] VITALS: BP 126/77
[2018-08-06 06:34] LABS: MEAN CELL VOLUME 89.6 fl (80.0-94.0); MEAN CORPUSCULAR HGB 29.2 pg (27.0-31.0); MEAN CORPUSCULAR HGB CONC 32.6 g/dl (33.0-37.0); MEAN PLATELET VOLUME 11.4 fl (9.6-12.3); PLATELET COUNT AUTOMATED 74 10*3/uL (130-400); RED CELL DISTRI WIDTH 17.6 % (0-14.5); WHITE BLOOD COUNT 7.8 10*3/uL (4.8-10.8)
[2018-08-06 06:49] LABS: CREATININE 2.13 mg/dL (0.70-1.30); POTASSIUM 3.6 mmol/L (3.5-5.1)
[2018-08-06 07:43] LABS: BURR CELLS FEW; PLATELET SUFFICIENCY LOW (NORMAL); TOTAL CELLS COUNTED 100 #CELLS
[2018-08-06 08:17] VITALS: BP 142/82
[2018-08-06 12:00] VITALS: BP 126/77; BP 149/81
[2018-08-06 20:00] VITALS: BP 144/73
[2018-08-06 22:03] LABS: CREATININE 2.61 mg/dL (0.70-1.30); POTASSIUM 3.9 mmol/L (3.5-5.1)
[2018-08-07 06:21] LABS: BASO % 0.1 % (0.0-1.0); EOS % 0.1 % (1.0-4.0); HEMATOCRIT 44.1 % (42.0-52.0); HEMOGLOBIN 13.9 g/dl (14.0-18.0); LYMPH # 0.7 10*3/uL (1.3-4.4); LYMPH % 6.1 % (27.0-41.0); MEAN CELL VOLUME 90.6 fl (80.0-94.0); MEAN CORPUSCULAR HGB 28.5 pg (27.0-31.0); MEAN CORPUSCULAR HGB CONC 31.5 g/dl (33.0-37.0); MEAN PLATELET VOLUME 11.3 fl (9.6-12.3); MONO # 0.5 10*3/uL (0.1-1.0); MONO % 4.6 % (3.0-9.0); NEUT # 9.6 10*3/uL (2.3-7.9); NEUT % 88.8 % (47.0-73.0); PLATELET COUNT AUTOMATED 84 10*3/uL (130-400); RED BLOOD COUNT 4.87 10*6/uL (4.50-5.90); RED CELL DISTRI WIDTH 17.6 % (0-14.5); WHITE BLOOD COUNT 10.8 10*3/uL (4.8-10.8)
[2018-08-07 06:45] LABS: CREATININE 2.16 mg/dL (0.70-1.30); POTASSIUM 3.6 mmol/L (3.5-5.1)
[2018-08-07 08:16] VITALS: BP 122/70
[2018-08-07 12:00] VITALS: BP 149/78
[2018-08-07 16:00] VITALS: BP 127/74
[2018-08-07 20:00] VITALS: BP 142/73
[2018-08-08] VITALS: BP 122/52; BP 150/81
[2018-08-08 07:11] LABS: EOS % 0.1 % (1.0-4.0); HEMATOCRIT 43.2 % (42.0-52.0); HEMOGLOBIN 13.9 g/dl (14.0-18.0); LYMPH # 0.8 10*3/uL (1.3-4.4); LYMPH % 10.4 % (27.0-41.0); MEAN CELL VOLUME 91.1 fl (80.0-94.0); MEAN CORPUSCULAR HGB 29.3 pg (27.0-31.0); MEAN CORPUSCULAR HGB CONC 32.2 g/dl (33.0-37.0); MEAN PLATELET VOLUME 12.1 fl (9.6-12.3); MONO # 0.4 10*3/uL (0.1-1.0); MONO % 5.7 % (3.0-9.0); NEUT # 6.3 10*3/uL (2.3-7.9); NEUT % 83.1 % (47.0-73.0); PLATELET COUNT AUTOMATED 87 10*3/uL (130-400); RED BLOOD COUNT 4.74 10*6/uL (4.50-5.90); RED CELL DISTRI WIDTH 17.2 % (0-14.5); WHITE BLOOD COUNT 7.5 10*3/uL (4.8-10.8)
[2018-08-08 07:32] LABS: CREATININE 2.09 mg/dL (0.70-1.30); POTASSIUM 3.5 mmol/L (3.5-5.1)
[2018-08-08 08:17] VITALS: BP 158/70
[2018-08-08 12:00] VITALS: BP 126/77
[2018-08-08 16:00] VITALS: BP 139/82
[2018-08-08 20:00] VITALS: BP 149/75
[2018-08-09] VITALS: BP 149/74
[2018-08-09 04:00] VITALS: BP 140/66
[2018-08-09 06:51] LABS: BASO % 0.1 % (0.0-1.0); EOS # 0.2 10*3/uL (0.0-0.4); EOS % 2.6 % (1.0-4.0); HEMATOCRIT 48.2 % (42.0-52.0); HEMOGLOBIN 14.7 g/dl (14.0-18.0); LYMPH # 0.7 10*3/uL (1.3-4.4); LYMPH % 10.7 % (27.0-41.0); MEAN CELL VOLUME 92.2 fl (80.0-94.0); MEAN CORPUSCULAR HGB 28.1 pg (27.0-31.0); MEAN CORPUSCULAR HGB CONC 30.5 g/dl (33.0-37.0); MEAN PLATELET VOLUME 11.6 fl (9.6-12.3); MONO # 0.5 10*3/uL (0.1-1.0); MONO % 7.9 % (3.0-9.0); NEUT # 5.3 10*3/uL (2.3-7.9); NEUT % 77.8 % (47.0-73.0); PLATELET COUNT AUTOMATED 75 10*3/uL (130-400); RED BLOOD COUNT 5.23 10*6/uL (4.50-5.90); RED CELL DISTRI WIDTH 17.3 % (0-14.5); WHITE BLOOD COUNT 6.8 10*3/uL (4.8-10.8)
[2018-08-09 07:12] LABS: CREATININE 1.97 mg/dL (0.70-1.30); POTASSIUM 3.6 mmol/L (3.5-5.1)
[2018-08-09 08:00] VITALS: BP 124/77
[2018-08-09] MEDS ORDERED: MUCINEX ER600 MG PO (11:52)
[2018-08-14] MEDS ORDERED: TOPROL XL50 M1 PO (17:29)
[2018-08-14] MEDS ORDERED: APRESOLINE25 MG PO (17:29)
[2018-08-14] MEDS ORDERED: Isordil20 MG PO (17:29)
[2018-08-25] MEDS ORDERED: VITAMIN D32000 UNI1 PO (12:50)
[2018-08-25] MEDS ORDERED: IMDUR SA30 MG PO (12:50)
[2018-08-25] MEDS ORDERED: METOPROLOL SUC100 M1 PO (12:50)
[2018-08-25] MEDS ORDERED: Ipratropium Brom3 ML NEB (12:50)
[2018-08-25] MEDS ORDERED: Lantus SC (12:50)
[2018-08-25] MEDS ORDERED: Humalog SQ (12:50)
[2018-08-25] MEDS ORDERED: VISTARIL25 MG PO (12:50)
[2018-09-17] MEDS ORDERED: LORATADINE10 M3 PO (11:44)
[2018-09-17] MEDS ORDERED: APRESOLINE25 MG PO (11:44)
[2018-09-17] MEDS ORDERED: Ipratropium Brom3 ML NEB (11:44)
[2018-09-17] MEDS ORDERED: FLONASE ALLERG9.9 ML NAS (11:44)
[2018-09-17] MEDS ORDERED: VISTARIL25 MG PO (11:44)
[2018-09-17] MEDS ORDERED: POTASSIUM CHLO10 ME5 PO (11:44)
[2018-09-17] MEDS ORDERED: OMEPRAZOLE40 MG PO (11:44)
[2018-09-17] MEDS ORDERED: LANTUS SOL100 UNIT/1 SQ (11:44)
[2018-09-17] MEDS ORDERED: IMDUR SA30 MG PO (11:44)
[2018-09-17] MEDS ORDERED: METOPROLOL SUC100 M1 PO (11:44)
[2018-09-17] MEDS ORDERED: LEVOTHYROXINE200 MC2 PO (11:44)
[2018-09-17] MEDS ORDERED: MULTIVITAMINS1 EAC6 PO (11:44)
[2018-09-17] MEDS ORDERED: ACCU-CHEK FAST1 EACH MC (11:44)
[2018-09-17] MEDS ORDERED: Humalog SQ (11:44)
[2018-09-17] MEDS ORDERED: VITAMIN D32000 UNI1 PO (11:44)
[2018-09-17] MEDS ORDERED: LIPITOR40 MG PO (11:44)
[2018-09-17] MEDS ORDERED: PEN NEEDLE1 EAC1 MC (11:44)
[2018-09-17] MEDS ORDERED: TEST STRIPS1 EACH MC (11:44)
[2018-09-17] MEDS ORDERED: SYMB160 INH (11:44)
[2018-09-17] MEDS ORDERED: SALINE NOSE SPR45 ML NAS (11:44)
[2018-09-17] MEDS ORDERED: BAYER ASPIRIN C81 MG PO (11:44)
[2018-09-25] MEDS ORDERED: CEPHALEXIN500 M1 PO (08:12)
== END 2018-08-09 16:53 | disposition home or self-care (01) | DRG 291 ==
LOC: ED 15:56 → EDHOLD 19:14 → 5E 19:14 → EDHOLD 19:42 → 5E 19:59
PROVIDERS: Emergency Medicine; Family Medicine; Internal Medicine; ADMIT Internal Medicine
DX: I13.0 Hypertensive heart and chronic kidney disease with heart failure and stage 1 through stage 4 chronic kidney disease, or unspecified chronic kidney disease (principal); J96.01 Acute respiratory failure with hypoxia; N17.0 Acute kidney failure with tubular necrosis; J18.1 Lobar pneumonia, unspecified organism; I50.43 Acute on chronic combined systolic (congestive) and diastolic (congestive) heart failure; R65.10 Systemic inflammatory response syndrome (SIRS) of non-infectious origin without acute organ dysfunction; E44.0 Moderate protein-calorie malnutrition; J44.0 Chronic obstructive pulmonary disease with (acute) lower respiratory infection; J98.11 Atelectasis; J44.1 Chronic obstructive pulmonary disease with (acute) exacerbation; N18.3 Chronic kidney disease, stage 3 (moderate); E87.6 Hypokalemia; E83.41 Hypermagnesemia; I25.10 Atherosclerotic heart disease of native coronary artery without angina pectoris; K21.9 Gastro-esophageal reflux disease without esophagitis; E78.5 Hyperlipidemia, unspecified; D69.6 Thrombocytopenia, unspecified; E11.65 Type 2 diabetes mellitus with hyperglycemia; E11.22 Type 2 diabetes mellitus with diabetic chronic kidney disease; F41.1 Generalized anxiety disorder; I49.1 Atrial premature depolarization; I27.20 Pulmonary hypertension, unspecified; E66.3 Overweight; T50.2X5A Adverse effect of carbonic-anhydrase inhibitors, benzothiadiazides and other diuretics, initial encounter; T38.0X5A Adverse effect of glucocorticoids and synthetic analogues, initial encounter; Z96.1 Presence of intraocular lens; Z91.018 Allergy to other foods; Z88.8 Allergy status to other drugs, medicaments and biological substances; Z87.01 Personal history of pneumonia (recurrent); Z87.11 Personal history of peptic ulcer disease; I25.2 Old myocardial infarction; Z85.068 Personal history of other malignant neoplasm of small intestine; Z98.42 Cataract extraction status, left eye; Z98.41 Cataract extraction status, right eye; Z87.891 Personal history of nicotine dependence; Z82.49 Family history of ischemic heart disease and other diseases of the circulatory system; Z99.81 Dependence on supplemental oxygen; Z79.82 Long term (current) use of aspirin; Z79.899 Other long term (current) drug therapy; Y92.89 Other specified places as the place of occurrence of the external cause; Z68.26 Body mass index [BMI] 26.0-26.9, adult

== ENCOUNTER 2018-09-11 17:50 | Inpatient (IN) | payer OTHER ==
[~2018-09-11] VITALS: Ht 193 cm; Wt 96.8 kg
--- NOTE | ~2018-09-11 | CON ---
[place], [place] REPORT OF CONSULTATION NAME: DARRIN CUELLAR [facility] #: [id number] UNIT #: [id number] ROOM: 502 DOCTOR: JOSE J GUERRERO MD BIRTHDATE: [birth year] DOS: 09/14/2018 PULMONARY CONSULTATION, EVALUATION AND MANAGEMENT CONSULTATION REQUESTED BY: Hospitalist Services. REASON FOR CONSULTATION: Assess the patient for abnormal respiratory symptoms with possible pneumonia and other pulmonary issues. HISTORY OF PRESENT ILLNESS: This is an 82-year-old male who has been admitted to the hospital on a frequent basis, has been hospitalized again on 09/11/2018. The patient's original presentation to the hospital was noted with having increased symptoms of shortness of breath at home. The shortness of breath has been noted worsened at home, associated with a small amount of sputum expectoration, described as grayish in color and intermittent sputum expectoration. He denies symptoms of wheezing. The patient was noted with edema of the lower extremities, mainly on the left lower extremity, also described as red. The symptoms have been present for about 3-4 days. An ultrasound of the lower extremities was done and that reported evidence of thrombophlebitis of the extremities. The patient has been currently admitted to the hospital and treated for that. He was stating symptoms of cough, which has been still present, not resolved. Shortness of breath noted decreased but not resolved completely to the baseline. Denies symptoms of wheezing or any chest pain or hemoptysis. REVIEW OF SYSTEMS: CONSTITUTIONAL SYMPTOMS: Fatigue and tiredness reported, without any fever or chills. EYES: Denies any burning, redness, or tenderness. EARS, NOSE AND THROAT SYMPTOMS: Denies sore throat, hoarseness, otalgia, postnasal drainage, or epistaxis. CARDIOVASCULAR: Denies anginal pain, syncopal episodes. Noted with edema of the lower extremities, greater on the left than the right side, which were noted red previously but seem to be better this morning of assessment. GENITOURINARY: Denies dysuria, suprapubic pain, or hematuria. GASTROINTESTINAL SYMPTOMS: Denies dysphagia, nausea, vomiting, diarrhea, abdominal pain, hematemesis, melena, or hematochezia. MUSCULOSKELETAL: No acute joint pain, redness, or tenderness. SKIN: Denies any lesions or rashes. CENTRAL NERVOUS SYSTEM: Denies any headache, diplopia, or syncopal episodes. Remaining systems were reviewed, noted all negative. PAST MEDICAL HISTORY: Known with: 1. History of congestive heart failure with systolic dysfunction with left ventricular ejection fraction of 45% in 06/2018. The patient was also noted with diastolic dysfunction. 2. COPD. 3. Type 2 diabetes mellitus. 4. Anxiety disorder. 5. Chronic hypoxic respiratory failure, on oxygen 2 liters nasal cannula. [place], [place] REPORT OF CONSULTATION NAME: DARRIN CUELLAR UNIT #: [id number] ROOM: [facility] DOCTOR: LEDA JAEGER MD,JOSE J BIRTHDATE: [birth year] 6. 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 7. Essential hypertension. 8. Hyperlipidemia. 9. Vitamin D deficiency. 10. Chronic kidney disease stage 3. 11. Chronic troponin elevation. 12. Right lower lobe nodule, more than 1 cm in size. Still workup has not been completed, as the patient frequently hospitalized. PET scan has been ordered; the patient is scheduled but not completed by the patient so far. PAST SURGICAL HISTORY: 1. Bilateral thoracentesis. 2. Cataract extraction with lens implantation bilaterally. 3. Cardiac catheterization. 4. Diagnostic and therapeutic bronchoscopy in 08/2018. SOCIAL HISTORY: The patient is , has 2 children, lives at home. Denies history of alcohol use or illicit drug use. Tobacco use noted at the age of [age] years old, 2 packs of cigarettes a day until 2002. FAMILY HISTORY: Unknown. CURRENT MEDICATIONS: Administered are Bumex intravenously 1 mg q. eight hours, sliding scale insulin coverage, Solu-Medrol 40 mg b.i.d., Lovenox 100 mg subcutaneously daily, potassium chloride, multivitamin, metoprolol succinate, loratadine, Imdur, vitamin D, aspirin, Flonase, omeprazole, levothyroxine, Lipitor, Mucinex, hydralazine, Pulmicort Respules, Atarax p.r.n. use, DuoNeb, azithromycin, and Rocephin. DRUG ALLERGIES: NOTED : 1. ATIVAN. 2. AMBIEN. PHYSICAL EXAMINATION: GENERAL: The patient is an 82-year-old white male patient, currently sitting on the side of the bed, legs hanging on the side of the bed. He does not appear to have any acute distress, using oxygen supplementation nasal cannula this morning of assessment. The patient's height recorded on admission as 6 feet 4 inches, weight of 216 pounds, BMI 26. VITAL SIGNS: Normal temperature noted since admission, respiratory rate of 22-18, heart rate 97-104, blood pressure 118/76-156/84. Intake 830, output 650 mL in the last 24 hours. The pulse ox saturation on 4-5 liters nasal cannula ranges between 92-95% saturation of oxygen. HEENT: Head is atraumatic. Eyes, nonicterus. NECK: Supple. CARDIOVASCULAR: S1 and S2 audible. LUNGS: Essentially noted occasional crackles with decreased breath sounds in the lungs. There is no wheezing heard today. ABDOMEN: Soft, nontender. EXTREMITIES: Show resolving edema, still noted with ixfm-nv-loyfvkxa edema of [place], [place] REPORT OF CONSULTATION NAME: DARRIN CUELLAR UNIT #: [id number] ROOM: [facility] DOCTOR: LEDA JAEGER MD,JOSE J BIRTHDATE: [birth year] the left lower extremity. There are no signs of cellulitis at this time. Most likely improved since admission. CENTRAL NERVOUS SYSTEM: Cranial nerves 2 through 12 intact. MUSCULOSKELETAL: Without any acute deformities. SKIN: Without any acute lesions or rashes. LABORATORY DATA: CBC done on admission, 09/11/2018: WBC count normal, hemoglobin 12.2, platelet count normal, 2.4% eosinophils. CMP of 09/15/2018: BUN 51, creatinine 2.06. Albumin 2.1 at that time. CBC that was done this morning: WBC count 4.2, hemoglobin 12.2, platelet count normal. BMP this morning: BUN of 59, creatinine 2.21, glucose 235. Troponins, which were done on admission were essentially noted as normal at this time. RADIOLOGY DATA: Review of radiology data was personally done. Chest x-ray that was done on admission on 09/11/2018 noted with evidence of bilateral pleural fluid which noted worsened since compared with the previous chest x-ray of last month. Finding of congestive heart failure and pulmonary edema was noted. Chest x-ray that was done on 09/13/2018 shows improvement of the pulmonary edema picture with possibility of nodules noted in the right lower lobe most likely as previously seen, reduction in the pleural fluid on the right side but still noted, with a small to possible moderate left pleural fluid, question area of compression atelectasis. CT scan of chest without contrast was completed on 09/12/2018, shows moderate sized bilateral pleural fluid, partial loculation of the left pleural fluid with area of compression atelectasis, small atelectasis of the lateral subsegment of the right middle lobe was also noted. Nodular density present in the right lower lobe, not clearly seen, was suspected to be present; not clearly visible because of the current pleural effusions. IMPRESSION: The patient who has been admitted to the hospital noted with: 1. Kpdxb-or-ydxxyzn hypoxic respiratory failure with acute chronic combined systolic and diastolic dysfunction. There was no evidence of pneumonia suggested at this time. Edema of the lower extremities secondary to congestive heart failure with thrombophlebitis and cellulitis was also seen. 2. Possibility of concomitant chronic obstructive pulmonary disease exacerbation would be also considered on admission. 3. History of pulmonary nodule. 4. Possibility of right upper lobe kidney mass was also stated. PLAN OF MANAGEMENT: Antibiotics will be discontinued as there was no clinical consideration or evidence of pneumonia at the present time. The patient's dose of Solu-Medrol will be decreased to 40 mg once a day. Continuation of diuretic therapy, IV Bumex as ordered with guidance of the Cardiology Services for management of congestive heart failure. Pleural fluid has been improving gradually; significant improvement noted in the right pleural fluid, and left pleural fluid appeared to be smaller. Still awaiting assessment for the right lower lobe nodule with PET scan for further assessment which has not been completed because of frequent hospitalizations. Rule out mass of the kidney as well. Continue oxygen supplementation, maintain pulse ox at 92% or greater. The oxygen requirement is still noted significantly elevated than baseline. Ultrasound of the kidneys would be ordered for initial assessment of current [place], [place] REPORT OF CONSULTATION NAME: DARRIN CUELLAR [facility] [id number] UNIT #: [id number] ROOM: [facility] DOCTOR: JOSE J GUERRERO MD BIRTHDATE: [birth year] mass, which is reported. Other additional treatment changes will be recommended for this patient based on the available further new data information. Supportive care, other therapy plan of management and care plan. Usual medical management and other therapies. Closely monitor respiratory status. If the pleural fluid would be noted worsening, further thoracentesis could be done at the bedside with ultrasound guidance. Thank you for allowing me to participate in the care of this patient. JOSE J TOMPKINS MD CM:CONSTR:REPORT OF CONSULTATION 1416 09/28/18 0946 interface
--- NOTE | ~2018-09-11 | CON ---
[place], [place] REPORT OF CONSULTATION NAME: DARRIN CUELLAR UNIT #: [id number] ROOM: 502 DOCTOR: ALAN DACOSTA MD BIRTHDATE: [birth year] DOS: 09/14/2018 CARDIOLOGY CONSULT REASON FOR CONSULTATION: Congestive heart failure. HISTORY OF PRESENT ILLNESS: The patient is an 82-year-old patient came to the Emergency Room with shortness of breath. He was in the hospital about a month ago for pneumonia. He noted to have gradual short of breath for the past few days as well as left leg swelling for the past 4 days and came to the Emergency Room and was admitted for congestive heart failure. Ultrasound of his left leg showed superficial thrombophlebitis. He was admitted to the hospital and Cardiology consulted for any congestive heart failure. He denies any chest pain, palpitations. No PND, no orthopnea. He had some shortness of breath in addition, but no chest pain, no palpitation, no dizziness, no syncope, no nausea or vomiting, no headaches, no bladder or bowel symptoms, no neurologic symptoms. REVIEW OF SYSTEMS: Review of the 10 systems negative except as mentioned above. PAST MEDICAL HISTORY: 1. Coronary artery disease. 2. Chronic kidney disease. 3. Cardiomyopathy, EF 45% by echo 08/2018. 4. Hypertension. 5. Home oxygen. 6. Pulmonary hypertension with RV systolic pressures of 50 mmHg. 7. Diabetes type 2. 8. Hiatal hernia. 9. Dyslipidemia. 10. Overweight. 11. Peptic ulcer disease. PAST SURGICAL HISTORY: 1. History of AAA repair. 2. History of peptic ulcer disease. SOCIAL HISTORY: The patient quit smoking in remission, does not use illicit drugs or does not drink alcohol. FAMILY HISTORY: Father at the age of 73 from myocardial infarction. Mother at the age of 78 from old age. ALLERGIES: THE PATIENT IS ALLERGIC TO GREEN PEPPER. HOME MEDICATIONS: Reviewed. PHYSICAL EXAMINATION: VITAL SIGNS: Blood pressure 118/76, pulse 90, respirations 20. Weight 107 kilos, BMI 28.7. GENERAL: Alert, comfortable, in no acute distress. [place], [place] REPORT OF CONSULTATION NAME: DARRIN CUELLAR UNIT #: [id number] ROOM: 502 DOCTOR: ALAN DACOSTA MD BIRTHDATE: [birth year] HEAD AND NECK: Neck is supple, no distended neck veins, no carotid bruit. CHEST: Symmetrical, nontender. LUNGS: Few scattered rhonchi, diminished at bases. HEART: Regular rate and rhythm, no S3. Grade 1/6 systolic murmur. ABDOMEN: Benign, nontender, obese. Bowel sounds normal. EXTREMITIES: Showed 2+ edema, left leg and 1+ edema, right leg. Distal pulses are fair. SKIN: Warm and dry. No cyanosis, no clubbing. RECTAL: Deferred. GENITOURINARY: Deferred. NEUROLOGIC: The patient is alert and oriented. No focal neurologic deficit. REVIEW OF THE DIAGNOSTIC TESTS: EKG and his labs reviewed. Echo from 08/2018 reviewed. The stress test from 01/2018 reviewed. His creatinine is 2.21. IMPRESSION: 1. Acute on chronic systolic and diastolic heart failure, ejection fraction 45%. 2. Coronary artery disease. 3. Hypertension. 4. History of abdominal aortic aneurysm repair. 5. Chronic kidney disease. 6. Pulmonary hypertension. 7. Chronic respiratory failure. 8. Bilateral pleural effusions. 9. Non-morbid obesity. 10. Mild tricuspid regurgitation. RECOMMENDATIONS: 1. Continue Lasix and watch his daily weights and ins and outs and renal function. 2. The patient is declining V/Q scan to rule out pulmonary emboli. 3. Continue his beta blockers and nitrates plus hydralazine. No NIECY or ARB due to his chronic kidney disease. 4. Medication and diet compliance was discussed. 5. No family at bedside at the time of my examination. 6. His echo from 08/2018 and the stress test from 09/2017 reviewed. No further cardiac testing at this time. [place], [place] REPORT OF CONSULTATION NAME: DARRIN CUELLAR UNIT #: [id number] ROOM: 502 DOCTOR: ALAN DACOSTA MD BIRTHDATE: [birth year] ALAN DACOSTA MD CM:CONSTR:REPORT OF CONSULTATION 19 10/03/18 1011 interface
--- NOTE | ~2018-09-11 | PR ---
[place], [place] PROGRESS NOTE NAME: DARRIN CUELLAR [facility] #: [id number] UNIT #: [id number] ROOM: 502 DOCTOR: LEDA JAEGER MD,JOSE J BIRTHDATE: [birth year] DOS: 09/15/2018 SUBJECTIVE: The patient was noted comfortable at this time, resting. The patient sitting on his bed. He has not been noted symptoms of fever or chills. The patient has symptoms of chest pain or hemoptysis. Shortness of breath has been improving. There was no wheezing. Mild cough was noted, which was nonproductive. Denies symptoms of abdominal pain, nausea or vomiting. The diuretic patient has been continued with intake and output. The patient was noted as total negative for balance of 511 mL. Remaining systems were reviewed. They were noted all negative. OBJECTIVE: VITAL SIGNS: For the patient which were recorded this morning shows the temperature noted as normal, respiratory rate 20, heart rate 83, blood pressure 130/75. Pulse oxygen saturation as 98% saturation on 4 liters cannula. HEENT: Head was atraumatic. Eyes nonicterus. NECK: Supple. CARDIOVASCULAR: S1, S2 audible. LUNGS: The patient was still noted decreased breath sounds in lower portion of the lung. There were no crackles or wheezing. ABDOMEN: Soft, nontender. EXTREMITIES: Shows resolving edema. Gradual progressive skin lesions or rashes. MUSCULOSKELETAL: Without acute deformities. CENTRAL NERVOUS SYSTEM: Cranial nerves 2-12 intact. LABORATORY DATA: BMP today: BUN 63, creatinine 2.15. Glucose 202. Calcium was 8.1. CBC this morning, WBC count 7.5, hemoglobin 12.1, and platelet count normal. IMPRESSION: 1. The patient with current acute congestive heart failure, bilateral pleural effusion noted with acute on chronic hypoxic respiratory failure, result of that and acute compression atelectasis lower lung secondary to pleural effusions. There was no evidence of pneumonia. 2. Lower pulmonary nodule in complete workup because the patient current hospitalization inability to get the further assessment done so far in the last few weeks. PLAN OF MANAGEMENT: Continuation of bronchodilators, diuretic. Monitor kidney function gradually. Oxygen supplementation to be titrated to maintain pulse ox 92% or greater. Usual care, other supportive therapy, plan of management, care plan of treatment and therapies. [place], [place] PROGRESS NOTE NAME: DARRIN CUELLAR UNIT #: [id number] ROOM: [facility] DOCTOR: JOSE J GUERRERO MD BIRTHDATE: [birth year] JOSE J TOMPKINS MD CM:PNTRANS [id number] JOSE J JAEGER MD 09/15/181944 interface
--- NOTE | ~2018-09-11 | EKG ---
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1935 Requested By: ELY DIAZ Order Number: [id number] Reading MD: Adrian Zavaleta Measurements Intervals Rosalie Rate: 80 P: 30 OR: 220 QRS: -5 QRSD: 103 T: 116 QT: 413 QTc: 477 Interpretive Statements Sinus rhythm First degree AV block Probable lateral infarct, age indeterminate Anterior infarct, old Baseline wander in lead(s) V1 Compared to ECG 08/21/2018 04:21:53 First degree AV block now present Atrial fibrillation no longer present Prolonged QT interval no longer present Myocardial infarct finding still present Electronically Signed On 09-14-2018 4:48:27 PDT by Adrian Zavaleta CM:EKGRPT:ELECTROCARDIOGRAM REPORT [id number] ELY PEREZ DRAFT REPORT ELY DIAZ MD
--- NOTE | ~2018-09-11 | PR ---
[place], [place] PROGRESS NOTE NAME: DARRIN CUELLAR [facility] #: [id number] UNIT #: [id number] ROOM: 502 DOCTOR: LEDA JAEGER MD,JOSE J BIRTHDATE: [birth year] DOS: 09/16/2018 PULMONARY PROGRESS NOTE SUBJECTIVE: The patient was noted comfortable at this time. Reduction in the respiratory symptoms gradually continued. There were no symptoms of fever or chills. Edema of the lower extremities resolved markedly. Shortness of breath also improved significantly. This morning, the patient examined sitting on the side of the bed. OBJECTIVE: GENERAL: In no distress, using oxygen supplementation via nasal cannula. VITAL SIGNS: Normal temperature, respiratory rate of 19. heart rate of 75, blood pressure 132/70. HEENT: Examination shows head was atraumatic. Eyes nonicterus. NECK: Supple. CARDIOVASCULAR SYSTEM: S1, S2 is audible. LUNGS: Noted without any wheezing or crackles at the present time. ABDOMEN: Soft, nontender. Bowel sounds present. EXTREMITIES: Without any acute edema. IMPRESSION: Progressive resolution and improvement in the respiratory status was noted at the present time with resolving congestive heart failure, pleural fluid clinically. There was no evidence of acute pneumonia. PLAN OF MANAGEMENT: Discharge planning per primary care attending from pulmonary standpoint. The patient could be discharged, but the clearance should be obtained from the Cardiology service prior to discharge on the medications needed for congestive heart failure management as an outpatient. Other therapy to be continued as previously. JOSE J TOMPKINS MD CM:PNTRANS [id number] JOSE J JAEGER MD 09/17/18 0316 interface
--- NOTE | ~2018-09-11 | EKG ---
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 : 1935 Requested By: ELY DIAZ Order Number: [id number] Reading MD: Adrian Zavaleta Measurements Intervals Hominy Rate: 81 P: 50 VT: 219 QRS: -17 QRSD: 101 T: 102 QT: 372 QTc: 432 Interpretive Statements Sinus rhythm Atrial premature complexes Borderline prolonged VT interval Borderline left axis deviation Abnormal lateral Q waves Anterior infarct, old Compared to ECG 08/21/2018 04:21:53 Atrial premature complex(es) now present Q waves now present Atrial fibrillation no longer present Prolonged QT interval no longer present Myocardial infarct finding still present Electronically Signed On 09-14-2018 4:48:55 PDT by Adrian Zavaleta CM:EKGRPT:ELECTROCARDIOGRAM REPORT [id number] [phone] ELY PEREZ DRAFT REPORT ELY DIAZ MD
[~2018-09-11 17:50] MED LIST changes: +Humalog SQ; +IMDUR SA30 MG PO; +Ipratropium Brom3 ML NEB; +Isordil20 MG PO; +Lantus SC; +METOPROLOL SUC100 M1 PO; +VITAMIN D32000 UNI1 PO
[2018-09-11 18:15] LABS: BASO % 0.6 % (0.0-1.0); EOS # 0.1 10*3/uL (0.0-0.4); EOS % 1.6 % (1.0-4.0); HEMATOCRIT 40.7 % (42.0-52.0); HEMOGLOBIN 12.7 g/dl (14.0-18.0); LYMPH # 1.9 10*3/uL (1.3-4.4); LYMPH % 30.5 % (27.0-41.0); MEAN CELL VOLUME 90.2 fl (80.0-94.0); MEAN CORPUSCULAR HGB 28.2 pg (27.0-31.0); MEAN CORPUSCULAR HGB CONC 31.2 g/dl (33.0-37.0); MEAN PLATELET VOLUME 10.2 fl (9.6-12.3); MONO # 0.6 10*3/uL (0.1-1.0); MONO % 8.7 % (3.0-9.0); NEUT # 3.7 10*3/uL (2.3-7.9); PLATELET COUNT AUTOMATED 187 10*3/uL (130-400); RED BLOOD COUNT 4.51 10*6/uL (4.50-5.90); RED CELL DISTRI WIDTH 16.2 % (0-14.5); WHITE BLOOD COUNT 6.3 10*3/uL (4.8-10.8)
[2018-09-11 18:22] VITALS: BP 134/70
--- NOTE | 2018-09-11 18:23 | NUR ---
PATIENT DENIES ANY WOUNDS A&OX4.
[2018-09-11 18:25] LABS: ACT PARTIAL THROMBO TIME 25.7 SECONDS (20.8-31.5); INTERNATIONAL NORM RATIO 1.1 (2.0-3.5)
[2018-09-11 18:44] LABS: ALBUMIN 2.3 gm/dl (3.1-4.5); CREATININE 2.06 mg/dL (0.70-1.30); POTASSIUM 3.3 mmol/L (3.5-5.1)
[2018-09-11 18:45] LABS: TROPONIN I 0.045 ng/ml (<0.045)
--- NOTE | 2018-09-11 18:45 | NUR ---
PATIENT TO ULTRASOUND AT THIS TIME. PATIENT HAS +2 PITTING EDEMA NOTED TO LEFT LOWER EXTREMITY.
--- NOTE | 2018-09-11 19:04 | NUR ---
RECEIVED REPORT FROM DEIDRE PERALTA
--- NOTE | 2018-09-11 19:19 | NUR ---
PROVIDED PT WITH BOX LUNCH MEAL. FAMILY AT BEDSIDE. SPO2 94% ON 3L PER NC.
--- NOTE | 2018-09-11 23:30 | NUR ---
TOOK REPORT FROM PREVIOUS FABIAN YOUNG
[2018-09-11 23:37] VITALS: BP 135/80
--- NOTE | 2018-09-11 23:45 | NUR ---
PROVIDED PT WITH BENEDICTO
[2018-09-12] VITALS (8 sets, daily range): BP systolic 119–155; BP diastolic 65–88
--- NOTE | 2018-09-12 01:10 | NUR ---
PT APPEARS TO BE SLEEPING NO NEEDS AT THIS TIME
--- NOTE | 2018-09-12 03:32 | NUR ---
PT IN BED SPEAKING IS SHORT SENTENCES PT A&O NO REQUESTS AT THIS TIME
--- NOTE | 2018-09-12 04:20 | NUR ---
PT IN BED IN FOWLERS POSITION SLEEPING RESP 20/MIN PULSE OX 90% ON O2 AT 5LPM VIA NC
[2018-09-12 06:14] LABS: POTASSIUM 3.4 mmol/L (3.5-5.1)
[2018-09-12 06:28] LABS: CREATININE 2.12 mg/dL (0.70-1.30); PHOSPHOROUS 4.5 mg/dL (2.5-4.9)
--- NOTE | 2018-09-12 07:22 | NUR ---
REPORT FROM LOIS, PREVIOUS RN. PT AMBULATORY TO BATHROOM AT THIS TIME. STABLE AND READY FOR ADMISSION.
--- NOTE | 2018-09-12 08:10 | NUR ---
Time: 809 A 82 year old MALE admitted to 5E under services of DIANA STEWART DO. Pt. arrived via stretcher from ER. Chief complaint: SHORTNESS OF BREATH. MONITOR APPLIED, PT SITTING AT BEDSIDE. MESHA HESTER
--- NOTE | 2018-09-12 10:12 | NUR ---
DR. CANNON AWARE THAT PATIENT HAD A 6 BEAT RUN OF V TACH PER [facility] [employer]ANT. RN CHECKED ON PATIENT, AT THIS TIME IS ASYMPTOMATIC. DR. EASON AWARE THAT K IS 3.4
[2018-09-12] MEDS ORDERED: FLONASE ALLERG9.9 ML NAS (10:22)
[2018-09-12] MEDS ORDERED: MUCINEX ER600 MG PO (10:23)
[2018-09-12] MEDS ORDERED: LANTUS SOL100 UNIT/1 SQ (10:25)
[2018-09-12] MEDS ORDERED: SALINE NOSE SPR45 ML NAS (10:40)
--- NOTE | 2018-09-12 10:41 | NUR ---
HOME MEDIATIONS UPDATED FROM PATIENT MED LIST SENT FROM [facility]
--- NOTE | 2018-09-12 13:44 | NUR ---
PT IS CURRENTLY AT [facility] FOR SHORT TERM CARE. PT WILL REQUIRE A PRECERT TO RETURN ON DISCHARGE. WILL CONTINUE TO FOLLOW.
--- NOTE | 2018-09-12 14:21 | NUR ---
CALLED BACK TO ROOM BY PT. PT NOT SURE HE WANTS TO RETURN TO REHAB SUIT[facility]. STATES HE MAY GO HOME AND GO TO OUT PT THERAPY. HE WILL LET ME KNOW WHEN HE MAKES UP HIS MIND.
--- NOTE | 2018-09-12 15:20 | NUR ---
DR. EASON AWARE THAT PATIENT IS REFUSING TO GO TO LUNG SCAN TODAY.
--- NOTE | 2018-09-12 18:01 | NUR ---
PT REFUSING TO GO FOR CT S[facility] ORDERED TONDR. JENARO MERINO MADE AWARE
--- NOTE | 2018-09-12 23:30 | NUR ---
PT MEDICATED W/VISTARIL TO HELP PROMOTE SLEEP AND FOR ANXIETY. PT RESTING QUIETLY IN BED AT THIS TIME. CALL LIGHT IN REACH.
[2018-09-13] VITALS: BP 140/79
--- NOTE | 2018-09-13 | NUR ---
PT RESTING QUIETLY IN BED AT THIS TIME. PRN VISTARIL EFFECTIVE.
[2018-09-13 06:58] LABS: CREATININE 2.3 mg/dL (0.70-1.30); POTASSIUM 3.7 mmol/L (3.5-5.1)
[2018-09-13 08:00] VITALS: BP 132/68
--- NOTE | 2018-09-13 10:31 | NUR ---
Occupational Therapy evaluation offered but patient declined stating that he could not participate in the evaluation as he was "too weak" and his "legs would not hold him". Despite explanation as to the importance and the reason for therapy, patient responded that tomorrow would be better. Jyotsna STILESR/brandon
--- NOTE | 2018-09-13 11:49 | NUR ---
PHYSICAL THERAPY PAtient respectfully declines PT this date. Thank you for this referral. Rupa Wan,PT
[2018-09-13 12:00] VITALS: BP 158/87
--- NOTE | 2018-09-13 14:35 | NUR ---
DR. TOMPKINS CALLED AND MADE AWARE OF CONSULT AT THIS TIME. STATED HE WILL SEE PATIENT TOMORROW. NO NEW ORDERS RECIEVED AT THIS TIME.
--- NOTE | 2018-09-13 14:38 | NUR ---
DR. CHOU'S ANSWERING SERVICE CALLED AND MADE AWARE OF NEW CONSULT AT THIS TIME. NO NEW ORDERS RECIEVED.
[2018-09-13 16:00] VITALS: BP 134/75
--- NOTE | 2018-09-13 17:22 | NUR ---
PATIENTS DANIEL CACERES CALLED AT THIS TIME. JC UPDATED ON PATIENTS CONDITION.
--- NOTE | 2018-09-13 19:00 | NUR ---
PT AWAKE IN BED DURING BEDSIDE SHIFT REPORT. PT C/O CONTINUED SOB. O2 AT 4LNC INTACT. SAT 95%. CALL LIGHT IN REACH.
[2018-09-13 20:00] VITALS: BP 122/82
--- NOTE | 2018-09-13 22:40 | NUR ---
PT MEDICATED W/VISTARIL FOR C/LO ANXIETY. PT TEACHING GIVEN ON BS RESULTS, INSULIN COVERAGE, AND RESULTS OF TESTS TODAY. CALL LIGHT IN REACH.
[2018-09-14] VITALS: BP 156/84
[2018-09-14 07:03] LABS: BASO % 0.2 % (0.0-1.0); HEMATOCRIT 39.8 % (42.0-52.0); HEMOGLOBIN 12.2 g/dl (14.0-18.0); LYMPH # 0.6 10*3/uL (1.3-4.4); LYMPH % 14.2 % (27.0-41.0); MEAN CELL VOLUME 90.9 fl (80.0-94.0); MEAN CORPUSCULAR HGB 27.9 pg (27.0-31.0); MEAN CORPUSCULAR HGB CONC 30.7 g/dl (33.0-37.0); MEAN PLATELET VOLUME 10.5 fl (9.6-12.3); MONO # 0.1 10*3/uL (0.1-1.0); MONO % 2.1 % (3.0-9.0); NEUT # 3.5 10*3/uL (2.3-7.9); NEUT % 82.8 % (47.0-73.0); PLATELET COUNT AUTOMATED 203 10*3/uL (130-400); RED BLOOD COUNT 4.38 10*6/uL (4.50-5.90); RED CELL DISTRI WIDTH 16.6 % (0-14.5); WHITE BLOOD COUNT 4.2 10*3/uL (4.8-10.8)
[2018-09-14 07:23] LABS: CREATININE 2.21 mg/dL (0.70-1.30); POTASSIUM 3.9 mmol/L (3.5-5.1)
[2018-09-14 08:08] VITALS: BP 118/76; BP 151/86
--- NOTE | 2018-09-14 10:55 | NUR ---
Occupational Therapy evaluation completed this date on 5 with full eval to follow. Precautions include O2 dep, SOB w/ min exertion, c/o severe weakness and fatigue in BLEs, IV UE, moderate complexity level 16472 via chart reveiw, testing and evaluation. REcommend OT per POC and SNF to enable safe return home at independent level. Patient thinks he can return home alone upon d/c. Thank you for this referral. Asiya Otero OTR/L
--- NOTE | 2018-09-14 11:00 | NUR ---
PHYSICAL THERAPY Patient evaluated on 5, full evaluation to follow. Continue with PT as per plan of care with fall, 02 and acute debility precautions. Will require SNF. PAtient is moderate complexity via chart review, tests and evaluation: [id number]. Thank you for this referral. Rupa Wan,PT
--- NOTE | 2018-09-14 11:49 | NUR ---
PT STILL UNDECIDED ABOUT WHERE HE IS GOING. WILL CHECK WITH PT WHEN PRECERT FOR REHAB SUITES BACK. WILL CONTINUE TO FOLLOW.
[2018-09-14 12:00] VITALS: BP 138/74
--- NOTE | 2018-09-14 15:45 | NUR ---
SPOKE WITH DR. TOMPKINS IN REFERENCE TO RENAL PANEL ORDERED, DC'D AT THIS TIME DUE TO PT HAD ONE ON 09/13/18. PT COMPLAINT OF ANXIETY REQUESTED VISTERAL AT THIS TIME. ADMINISTERED AND SPOKE WITH PT ABOUT NON PHARMALOGICAL ANXIETY REDUCERS.
[2018-09-14 16:00] VITALS: BP 139/79
[2018-09-14 20:00] VITALS: BP 132/83
[2018-09-15] VITALS: BP 137/75
[2018-09-15 06:05] LABS: BASO % 0.3 % (0.0-1.0); HEMATOCRIT 39.7 % (42.0-52.0); HEMOGLOBIN 12.1 g/dl (14.0-18.0); LYMPH # 1.2 10*3/uL (1.3-4.4); LYMPH % 16.1 % (27.0-41.0); MEAN CELL VOLUME 92.5 fl (80.0-94.0); MEAN CORPUSCULAR HGB 28.2 pg (27.0-31.0); MEAN CORPUSCULAR HGB CONC 30.5 g/dl (33.0-37.0); MEAN PLATELET VOLUME 11.1 fl (9.6-12.3); MONO # 0.6 10*3/uL (0.1-1.0); MONO % 8.3 % (3.0-9.0); NEUT # 5.6 10*3/uL (2.3-7.9); NEUT % 74.6 % (47.0-73.0); PLATELET COUNT AUTOMATED 205 10*3/uL (130-400); RED BLOOD COUNT 4.29 10*6/uL (4.50-5.90); WHITE BLOOD COUNT 7.5 10*3/uL (4.8-10.8)
[2018-09-15 06:26] LABS: CREATININE 2.15 mg/dL (0.70-1.30)
--- NOTE | 2018-09-15 07:12 | NUR ---
Patient has received auth [facility] to [facility]. Patient is ok to go if medically stable for discharge.
[2018-09-15 08:00] VITALS: BP 154/78
[2018-09-15 12:00] VITALS: BP 131/80
--- NOTE | 2018-09-15 12:00 | NUR ---
AUTH RECIEVED FOR PT TO [facility]URN TO [facility], PT WANTS TO WAIT UNTIL HE TALKS TO HIS AND DOES NOT WANT TO RETURN. STATES SHE SHOULD BE HERE SOON. WILL CONTINUE TO FOLLOW.
--- NOTE | 2018-09-15 12:57 | NUR ---
PHYSICAL THERAPY informed consent given, pt identified by name and . pt presented sitting EOB pulse 90bpm spO2 92% 3L. seated ther ex all B LE planes x30 manual resistance, green there band used for hip abduction. gave pt green theraband to use on his own time and take home. STS and stand to sit Raad, static standing balance CGA no AD 30 seconds d/t fatigue, no LOB present. Ended treatment pt sitting EOB pulse 108bpm spO2 91% 3L, call light and belongings in reach.1:1 treatment with SHALLOT PACKER 14min. NOHEMY OLSON PTA
--- NOTE | 2018-09-15 13:20 | NUR ---
OT NOTE Pt was seen this P.M. 1:1 for 24 minute OT session. Upon arrival pt was supine in bed. Pt identified by name and and had no complaints at this time other than generalized weakness and fatigue. Pt presented to therapy with continous 3L-O2 via NC which he remained on throughout entire session. Pt transferred supine to sit EOB with SBA. Sit to stand transfers completed from bed level with Raad and use of w/w for UE support. Challenged pt's static standing tolerance needed for increased I in self care tasks and functional transfers. Pt was able to tolerate aprox 30-50 seconds at a time before sitting due to fatigue. While sitting EOB pt was given a home exercise program for BUE. Completed 1 X 10 to BUE over all planes of motion using the purple theraband to increase strength needed for increased I in self care tasks and functional transfers. Pt was then educated on personal techniques to complete passive resistance exercises followng home exercise program provided with. Pt verbalized understanding and all questions were answered. Pt was left sitting upright on the EOB with lunch tray in place and call light in hand. Continue with rec D/c plan to return to SNF. ERIC Farmer/Pete
[2018-09-15 16:00] VITALS: BP 131/75
[2018-09-15 20:00] VITALS: BP 128/75
--- NOTE | 2018-09-15 21:40 | NUR ---
PATIENT MEDICATED WITH VISTARIL TO PROMOTE SLEEP. WILL CHECK EFFECTIVENESS
[2018-09-16] VITALS: BP 137/72
[2018-09-16 06:34] LABS: CREATININE 2.04 mg/dL (0.70-1.30); POTASSIUM 3.5 mmol/L (3.5-5.1)
[2018-09-16 08:00] VITALS: BP 132/70
--- NOTE | 2018-09-16 09:55 | NUR ---
OT NOTE Pt was seen this A.M. 1:1 for 25 minute OT session. Upon arrival pt was sitting upright on the EOB. Pt identified by name and and had no complaints at this time. Pt presented to therapy with continous 3L-O2 via NC which he remained on throughout entire session. At rest pt's SpO2 was 93%. Pt completed multiple sit to stand transfers from bed level with Raad and use of w/w for UE support. Challenged pt's static standing tolerance needed for increased I in self care tasks and functional transfers. Pt was able to tolerate aprox 30-60 seconds at a time before sitting due to fatigue. Pt then performed home exercise program previously educated and provided with. Pt required education on three exercises due to not being able to remember technique and having unsafe personal techniques. Pt completed BUE PRE over all planes of motion for 1 X 10 using purple theraband. Pt was left sitting upright on the EOB with call light in hand, tray table in place, and phone in reach. Continue with rec D/C plan to return to SNF. ERIC Farmer/Pete
--- NOTE | 2018-09-16 10:20 | NUR ---
PHYSICAL THERAPY informed consent given, pt identified by name and . pt presented sitting EOB, kyphotic posture using purple theraband for LAQ, spO2 89% 3L. education on breathing techniques and upright posture to assist with breathing, pt states "I don't know if I can fix my posture". Seated ther ex B LE purple theraband x15: hip ABD, marches, and hip ADD isometricly with pillow. Rests given in between every exercise, spO2 throughout treatment 90% 3L. Ended treatment pt sitting EOB, belongings and call light in reach, spO2 93% 3L. 1:1 treatment with DEVELOPER AUTOMATIC 15min. NOHEMY OLSON [employer]ELOPER [employer]OM[employer]
--- NOTE | 2018-09-16 11:14 | NUR ---
POTATO CHIP FRYER IN TO SEE PT. PT STATES TALKED WITH HIS AND HE IS GOING TO GO HOME. STATES HE WILL DO CARDIAC REHAB HERE AND WILL HAVE VISITING NURSES AT HOME. WILL CONTINUE TO FOLLOW.
[2018-09-16 12:00] VITALS: BP 126/50
--- NOTE | 2018-09-16 13:18 | NUR ---
REFERRAL FAXED TO [facility].
[2018-09-16] MEDS ORDERED: BUMETANIDE1 MG PO (15:15)
[2018-09-16] MEDS ORDERED: PREDNISONE10 MG PO (15:15)
[2018-09-16] MEDS ORDERED: ENOXAPARIN100 MG/1 M SC (15:15)
--- NOTE | 2018-09-16 15:55 | NUR ---
CHECKED ON [facility] OF LOVENOX FOR PT AT [facility]. PER PHARMACIST DODD, PT WILL HAVE NO COST FOR MED. WENT TO ROOM TO TELL PT ABOUT NEEDING LOVENOX INJECTIONS FOR 8 DAYS. PT STATES WHO WILL GIVE THEM TO ME. ASKED IF HIS COULD AND HE STATES I DON'T THINK SHE CAN, PT ALSO STATES I AM NOT GOING HOME YET, I AM NOT READY. I CAN'T EVEN STAND UP. ATTEMPTED TO EXPLAIN TO PT MAYBE HE SHOULD GO BACK TO REHAB THEN PT BECOMES UPSET AND YELLS NO. I AM GOING HOME BUT NOT TODAY. HOSPITALIST NURSE DIRECTOR NOTIFIED. ATTEMPTED TO CALL AT HOME AND CELL NUMBER BUT NO ANSWERE. LEFT MESSAGE.
[2018-09-16 16:00] VITALS: BP 131/70
[2018-09-16 20:00] VITALS: BP 132/76
--- NOTE | 2018-09-16 20:10 | NUR ---
PATIENT STILL WAITING ON TO PICK PATIENT UP. STATES "THE DOCTORS GAVE ME MY WALKING PAPERS, THEY ALL CAN GO TO HEL. IM NOT READY TO GO HOME. I CANT WALK AND THEY WANT TO DISCHARGE ME.
--- NOTE | 2018-09-16 20:36 | NUR ---
ATTEMPTED TO CALL PATIENTS REGARDING WHEN PATIENT IS BEING PICKED UP. NO ANSWER. OVEN EQUIPMENT REPAIRER NOTIFIED.
--- NOTE | 2018-09-16 21:05 | NUR ---
Discharge instructions reviewed with patient/family. Patient receptive and verbalizes understanding. Follow-up care arranged. Written instructions given to patient/family. PATIENT HE TO STRINGER UP SOLDERING MACHINE PATIENT AT THIS TIME. IV, HEART MONITOR REMOVED. PATIENT LEFT VIA WHEEL. PAUL NDIAYE
[2018-09-17] MEDS ORDERED: SYMB160 INH (11:44)
[2018-09-17] MEDS ORDERED: POTASSIUM CHLO10 ME5 PO (11:44)
[2018-09-17] MEDS ORDERED: APRESOLINE25 MG PO (11:44)
[2018-09-17] MEDS ORDERED: TEST STRIPS1 EACH MC (11:44)
[2018-09-17] MEDS ORDERED: Ipratropium Brom3 ML NEB (11:44)
[2018-09-17] MEDS ORDERED: MULTIVITAMINS1 EAC6 PO (11:44)
[2018-09-17] MEDS ORDERED: BAYER ASPIRIN C81 MG PO (11:44)
[2018-09-17] MEDS ORDERED: LEVOTHYROXINE200 MC2 PO (11:44)
[2018-09-17] MEDS ORDERED: VISTARIL25 MG PO (11:44)
[2018-09-17] MEDS ORDERED: FLONASE ALLERG9.9 ML NAS (11:44)
[2018-09-17] MEDS ORDERED: PEN NEEDLE1 EAC1 MC (11:44)
[2018-09-17] MEDS ORDERED: METOPROLOL SUC100 M1 PO (11:44)
[2018-09-17] MEDS ORDERED: SALINE NOSE SPR45 ML NAS (11:44)
[2018-09-17] MEDS ORDERED: LIPITOR40 MG PO (11:44)
[2018-09-17] MEDS ORDERED: ACCU-CHEK FAST1 EACH MC (11:44)
[2018-09-17] MEDS ORDERED: LANTUS SOL100 UNIT/1 SQ (11:44)
[2018-09-17] MEDS ORDERED: LORATADINE10 M3 PO (11:44)
[2018-09-17] MEDS ORDERED: VITAMIN D32000 UNI1 PO (11:44)
[2018-09-17] MEDS ORDERED: Humalog SQ (11:44)
[2018-09-17] MEDS ORDERED: IMDUR SA30 MG PO (11:44)
[2018-09-17] MEDS ORDERED: OMEPRAZOLE40 MG PO (11:44)
--- NOTE | 2018-09-19 07:26 | NUR ---
OCCUPATIONAL THERAPY CO-SIGN I approve of the Occupational Therapy notes written above. SILVIA ACOSTA
--- NOTE | 2018-09-19 08:14 | NUR ---
PHYSICAL THERAPY CO-SIGN I approve of the Phyical Therapy notes written above. CATHY BUTLER PT
--- NOTE | 2018-09-19 11:21 | NUR ---
SW had a message from pt's regarding his coming home. Pt was discharge while SW was off. SW returned 's phone call, she was upsaid stating she did not know he was going to be discharged until he told her the doctor threw him out. SW stated that pt declined going back to the SNF and was aware of that. SW asked if she had services in the home and what could we do to help her. Pt has [facility] [place] and AMINA Ayers has left this SW a message which she returned and is waiting for Andria to call her. SW will contact Andria to see what is needed for pt. AMINA Puentes PRESIDENT CEO & FOUNDER,MEDICARE CONTACT SPECIALIST
[2018-09-25] MEDS ORDERED: CEPHALEXIN500 M1 PO (08:12)
== END 2018-09-16 21:05 | disposition home health service (06) | DRG 291 ==
LOC: ED 17:50 → EDHOLD 20:24 → 5E 20:24
PROVIDERS: Emergency Medicine; Student in an Organized Health Care Education/Training Program; ADMIT Emergency Medicine
DX: I13.0 Hypertensive heart and chronic kidney disease with heart failure and stage 1 through stage 4 chronic kidney disease, or unspecified chronic kidney disease (principal); J96.21 Acute and chronic respiratory failure with hypoxia; I50.43 Acute on chronic combined systolic (congestive) and diastolic (congestive) heart failure; E43 Unspecified severe protein-calorie malnutrition; F41.9 Anxiety disorder, unspecified; I25.10 Atherosclerotic heart disease of native coronary artery without angina pectoris; K21.9 Gastro-esophageal reflux disease without esophagitis; E78.5 Hyperlipidemia, unspecified; Z96.1 Presence of intraocular lens; K44.9 Diaphragmatic hernia without obstruction or gangrene; I27.20 Pulmonary hypertension, unspecified; E55.9 Vitamin D deficiency, unspecified; E66.8 Other obesity; I07.1 Rheumatic tricuspid insufficiency; E11.22 Type 2 diabetes mellitus with diabetic chronic kidney disease; I80.9 Phlebitis and thrombophlebitis of unspecified site; E87.6 Hypokalemia; E11.65 Type 2 diabetes mellitus with hyperglycemia; N18.3 Chronic kidney disease, stage 3 (moderate); K27.9 Peptic ulcer, site unspecified, unspecified as acute or chronic, without hemorrhage or perforation; J44.9 Chronic obstructive pulmonary disease, unspecified; Z99.81 Dependence on supplemental oxygen; Z88.8 Allergy status to other drugs, medicaments and biological substances; Z91.013 Allergy to seafood; Z79.82 Long term (current) use of aspirin; Z85.09 Personal history of malignant neoplasm of other digestive organs; Z82.49 Family history of ischemic heart disease and other diseases of the circulatory system; I25.2 Old myocardial infarction; Z98.49 Cataract extraction status, unspecified eye; Z87.891 Personal history of nicotine dependence; Z79.4 Long term (current) use of insulin; Z79.84 Long term (current) use of oral hypoglycemic drugs; Z68.26 Body mass index [BMI] 26.0-26.9, adult

== ENCOUNTER 2018-10-15 02:57 | Emergency (ER) | payer OTHER ==
[~2018-10-15] VITALS: Wt 96.2 kg
[~2018-10-15 02:57] MED LIST changes: +ACCU-CHEK FAST1 EACH MC; +BUMETANIDE1 MG PO; +CEPHALEXIN500 M1 PO; +ENOXAPARIN100 MG/1 M SC; +FLONASE ALLERG9.9 ML NAS; +LANTUS SOL100 UNIT/1 SQ; +PEN NEEDLE1 EAC1 MC; +SALINE NOSE SPR45 ML NAS; +TEST STRIPS1 EACH MC
[2018-10-15 03:50] LABS: BASO % 0.4 % (0.0-1.0); EOS # 0.2 10*3/uL (0.0-0.4); EOS % 3.2 % (1.0-4.0); HEMATOCRIT 30.5 % (42.0-52.0); HEMOGLOBIN 9.5 g/dl (14.0-18.0); LYMPH # 1.4 10*3/uL (1.3-4.4); LYMPH % 30.3 % (27.0-41.0); MEAN CELL VOLUME 92.7 fl (80.0-94.0); MEAN CORPUSCULAR HGB 28.9 pg (27.0-31.0); MEAN CORPUSCULAR HGB CONC 31.1 g/dl (33.0-37.0); MEAN PLATELET VOLUME 10.3 fl (9.6-12.3); MONO # 0.5 10*3/uL (0.1-1.0); NEUT # 2.6 10*3/uL (2.3-7.9); NEUT % 55.5 % (47.0-73.0); PLATELET COUNT AUTOMATED 152 10*3/uL (130-400); RED BLOOD COUNT 3.29 10*6/uL (4.50-5.90); RED CELL DISTRI WIDTH 15.6 % (0-14.5); WHITE BLOOD COUNT 4.7 10*3/uL (4.8-10.8)
[2018-10-15 04:13] LABS: ALBUMIN 2.3 gm/dl (3.1-4.5); CREATININE 2.34 mg/dL (0.70-1.30); POTASSIUM 3.4 mmol/L (3.5-5.1); TOTAL PROTEIN 5.5 gm/dL (6.4-8.2)
== END 2018-10-15 07:34 | disposition short-term general hospital (02) ==
LOC: ED 02:57
PROVIDERS: Emergency Medicine
DX: K92.2 Gastrointestinal hemorrhage, unspecified (principal); I25.10 Atherosclerotic heart disease of native coronary artery without angina pectoris; J44.9 Chronic obstructive pulmonary disease, unspecified; E11.22 Type 2 diabetes mellitus with diabetic chronic kidney disease; I13.0 Hypertensive heart and chronic kidney disease with heart failure and stage 1 through stage 4 chronic kidney disease, or unspecified chronic kidney disease; N18.3 Chronic kidney disease, stage 3 (moderate); I50.42 Chronic combined systolic (congestive) and diastolic (congestive) heart failure; K21.9 Gastro-esophageal reflux disease without esophagitis; E78.5 Hyperlipidemia, unspecified; I25.2 Old myocardial infarction; Z91.018 Allergy to other foods; Z88.8 Allergy status to other drugs, medicaments and biological substances; Z91.013 Allergy to seafood; Z79.899 Other long term (current) drug therapy; Z79.82 Long term (current) use of aspirin; Z79.4 Long term (current) use of insulin; Z87.891 Personal history of nicotine dependence